=== PATIENT | female | born 1945 | race African-American/Black ===

== ENCOUNTER 2017-01-17 22:24 | Observation (INO) | payer OTHER ==
[~2017-01-17] VITALS: Ht 167.6 cm; Wt 77.6 kg
[~2017-01-17 22:24] MED LIST: ACET-704 PO; ACET1TAB33 PO; ACET325T9 PO; ALPR0.5T PO; ALPR0.5T6; ALPR1TAB6 PO; AMLO10TA2 PO; AMLO5TAB4 PO; ASPI-482 PO; CLON0.1T PO; CLON0.5T3 PO; CYCL10TA2 PO; DILT180C11; DILT180C2 PO; FLAX100017 PO; FLUT100D IH; FLUT50DI; FURO-69; FURO-69 PO; HYDR-2869; HYDR-2869 PO; HYDR100T24 PO; LORA10TA3 PO; LOSA100T6 PO; METO-269 PO; METO100T11 PO; METO100T5; METO10TA81 PO; MULT-18 PO; MULT-658; PANT40GR PO; PANT40VI; POTA10TA12 PO; PROAIR HFA8.5 GM IH; RANI150T2; RANI150T2 PO; SERT25TA PO; SIME80TA14 PO; SIMV20TA3; SIMV20TA3 PO; SUCR1TAB35 PO; TELM1TAB3 PO; TELM80TA; [UNRECOGNIZED DRUG - OTHER]; erythromycin PO
[2017-01-17] MEDS ORDERED: ASPIRIN CHEWABLE 81 MG TABLET. PO ONE (23:00)
[2017-01-17 23:06] LABS: BASO % 0 % (0-3); EOS % 1 % (0-3); HEMATOCRIT 38.6 % (36.0-47.0); HEMOGLOBIN 12.4 g/dL (12.0-15.5); LYMPH % 40 % (24-48); MEAN CORPUSCULAR HEMOGLOBIN 26 pg (25-35); MEAN CORPUSCULAR HGB CONC 32 g/dL (31-37); MEAN CORPUSCULAR VOLUME 80 fL (79-100); MONO % 11 % (0-9); NEUT % 47 % (31-73); PLATELET COUNT 191 x10^3/uL (140-400); RED BLOOD COUNT 4.84 x10^6/uL (3.50-5.40); RED CELL DISTRIBUTION WIDTH 15.2 % (11.5-14.5)
[2017-01-17 23:17] LABS: CALCIUM 9.4 mg/dL (8.5-10.1); CREATININE 0.9 mg/dL (0.6-1.0); GFR 75.1; POTASSIUM 3.4 mmol/L (3.5-5.1)
[2017-01-17 23:24] LABS: ALBUMIN 3.8 g/dL (3.4-5.0); DIRECT BILIRUBIN 0.1 mg/dL (0.0-0.2); TOTAL BILIRUBIN 0.2 mg/dL (0.2-1.0)
--- NOTE | 2017-01-17 23:25 | PHYS DOC ---
Past Medical History Past Medical History: Anxiety, Arthritis, High Cholesterol, Hypertension Additional Past Medical Histor: pericarditis, NARROW ESOPHAGUS, heart murmur Past Surgical History: Cholecystectomy, Hysterectomy, Other Additional Past Surgical Histo: pericardial window shoulder sx 2 knee replacements,pericardial window, [place] Alcohol Use: None Drug Use: None Adult General Chief Complaint Chief Complaint: CHEST PAIN HPI HPI 71-year-old female presenting to the emergency department today with chest pain. The pain is moderate intermittent and is been present for 2 weeks. It radiates into both shoulders bilaterally. She reports taking her blood pressure medications. She denies ever having a heart attack prior. She has a history of high cholesterol hypertension and a history of pericarditis. The patient denies unilateral leg swelling hemoptysis family or personal history of blood clotting disorders. The pt denies recent immobilization. Review of systems is negative for fevers chills cough neck stiffness headache abdominal pain. All other review of systems is negative unless otherwise noted in history of present illness. Pertinent physical exam findings I did not appreciate a murmur though her EMR has a listed and her medical history. Lungs are clear to auscultation bilaterally abdomen is soft and nontender. ED course: 71-year-old female presenting to the emergency department today with chest pain. EKG unremarkable. Chest x-ray unremarkable. Blood work obtained which showed a negative troponin. Given the patient's age and risk factors she was admitted for serial blood tests further evaluation workup and care. Cardiology consult placed. Review of Systems Review of Systems SEE ABOVE. Current Medications Current Medications Current Medications Medications (Trade) Dose Ordered Sig/[facility] Start Time Stop Time Status Last Admin Dose Admin Aspirin (Children'S Aspirin) 324 mg 1X ONCE 01/17/17 23:00 01/17/17 23:01 DC 01/17/17 22:47 324 MG Allergies Allergies Allergies Coded Allergies Type Severity Reaction Last Updated Verified lisinopril Allergy Intermediate 07/13/14 Yes metoclopramide Allergy Intermediate 07/23/15 Yes hydrocodone Allergy Mild shakiness 09/23/13 Yes Physical Exam Physical Exam Constitutional: Well developed, well nourished, no acute distress, non-toxic appearance. HENT: Normocephalic, atraumatic, bilateral external ears normal, oropharynx moist, no oral exudates, nose normal. [] Eyes: PERRLA, EOMI, conjunctiva normal, no discharge. [] Neck: Normal range of motion, no tenderness, supple, no stridor. [] Cardiovascular:Heart rate regular rhythm, no murmur [] Lungs & Thorax: Bilateral breath sounds clear to auscultation Abdomen: Bowel sounds normal, soft, no tenderness, no masses, no pulsatile masses. [] Skin: Warm, dry, no erythema, no rash. [] Back: No tenderness, no CVA tenderness. [] Extremities: No tenderness, no cyanosis, no clubbing, ROM intact, no edema. Neurologic: Alert and oriented X 3, normal motor function, normal sensory function, no focal deficits noted. [] Psychologic: Affect normal, judgement normal, mood normal. [] Current Patient Data Vital Signs Vital Signs Date Time Temp Pulse Resp B/P (MAP) Pulse Ox O2 Delivery O2 Flow Rate FiO2 01/17/17 22:46 98.3 70 18 192/92 (125) 97 Room Air 98.3 Lab Values Laboratory Tests Test 01/17/17 22:59 White Blood Count 5.0 x10^3/uL (4.0-11.0) Red Blood Count 4.84 x10^6/uL (3.50-5.40) Hemoglobin 12.4 g/dL (12.0-15.5) Hematocrit 38.6 % (36.0-47.0) Mean Corpuscular Volume 80 fL (79-100) Mean Corpuscular Hemoglobin 26 pg (25-35) Mean Corpuscular Hemoglobin Concent 32 g/dL (31-37) Red Cell Distribution Width 15.2 % (11.5-14.5) H Platelet Count 191 x10^3/uL (140-400) Neutrophils (%) (Auto) 47 % (31-73) Lymphocytes (%) (Auto) 40 % (24-48) Monocytes (%) (Auto) 11 % (0-9) H Eosinophils (%) (Auto) 1 % (0-3) Basophils (%) (Auto) 0 % (0-3) Neutrophils # (Auto) 2.4 x10^3uL (1.8-7.7) Lymphocytes # (Auto) 2.0 x10^3/uL (1.0-4.8) Monocytes # (Auto) 0.6 x10^3/uL (0.0-1.1) Eosinophils # (Auto) 0.1 x10^3/uL (0.0-0.7) Basophils # (Auto) 0.0 x10^3/uL (0.0-0.2) Sodium Level 142 mmol/L (136-145) Potassium Level 3.4 mmol/L (3.5-5.1) L Chloride Level 105 mmol/L (98-107) Carbon Dioxide Level 30 mmol/L (21-32) Anion Gap 7 (6-14) Blood Urea Nitrogen 14 mg/dL (7-20) Creatinine 0.9 mg/dL (0.6-1.0) Estimated GFR (Cockcroft-Gault) 75.1 Glucose Level 93 mg/dL (70-99) Calcium Level 9.4 mg/dL (8.5-10.1) Total Bilirubin 0.2 mg/dL (0.2-1.0) Direct Bilirubin 0.1 mg/dL (0.0-0.2) Aspartate Amino Transferase (AST) 21 U/L (15-37) Alanine Aminotransferase (ALT) 25 U/L (14-59) Alkaline Phosphatase 89 U/L (46-116) Troponin I Quantitative < 0.017 ng/mL (0.000-0.055) CD-Aue-X-Type Natriuretic Peptide 184 pg/mL (0-124) H Total Protein 8.0 g/dL (6.4-8.2) Albumin 3.8 g/dL (3.4-5.0) Lipase 104 U/L (73-393) Laboratory Tests 01/17/17 22:59 Laboratory Tests 01/17/17 22:59 EKG EKG EKG shows sinus rhythm with regular rate. Normal intervals. Normal axis. ST segments are congruent. Not suggestive of ACS. Reviewed by myself. Radiology/Procedures Radiology/Procedures []Chest x-ray reviewed by myself shows no obvious infiltrate or pneumothorax present. No obvious acute cardiopulmonary process present. Course & Med Decision Making Course & Med Decision Making Pertinent Labs and Imaging studies reviewed. (See chart for details) [] Dragon Disclaimer Dragon Disclaimer This electronic medical record was generated, in whole or in part, using a voice recognition dictation system. Departure Departure Impression: Primary Impression: Chest pain Disposition: ADMITTED INPATIENT Admitting Physician: Dionte Yan Condition: STABLE Referrals: BON NELSON (PCP) MARTÍN TEJEDA MD Jan 17, 2017 23:25
[2017-01-17] MEDS ORDERED: ONDANSETRON PF 4 MG/2 ML VIAL. IV PRN (23:45)
--- NOTE | 2017-01-17 23:52 | ACF ---
Admit Criteria Forms Admit Criteria Forms Admit Criteria Forms HYPERTENSION Clinical Indications for Admission to Inpatient Care ( Place "X" for any and all applicable criteria): Admission is indicated for 1 or more of the following(1)(2)(3)(4)(5)(6)(7)(8)(9) (10): [ ]I. Hypertensive emergency, with evidence of acute and progressing target organ disease as indicated by 1 or more of the following: [ ]a) Hypertensive encephalopathy (eg, confusion, altered mental status) [ ]b) Cerebral infarction [ ]c) Intracranial hemorrhage [ ]d) Myocardial ischemia or infarction [ ]e) Heart failure (eg. Pulmonary edema) [ ]f) Aortic dissection [ ]g) Increased creatinine (new) with reduction of more than 50% in estimated glomerular filtration rate from baseline [ ]h) Seizure [ ]i) Papilledema [ ]j) Retinal hemorrhage [ ]k) Microangiopathic hemolytic anemia [ ]l) Other significant finding secondary to hypertension [ ]II. Adrenergic or sympathomimetic crisis (eg, severe hypertension due to pheochromocytoma crisis, cocaine or amphetamine intoxication, or clonidine withdrawal) [X]III. Severe hypertension (SBP greater than 180 mmHg or DBP greater than 110 mmHg or greater than the 95th percentile for age, gender, and height in pediatric patients) that cannot be controlled (eg, to SBP less than 160 mmHg and DBP less than 100 mmHg in adults) by treatment with oral medication in emergency department or observation care Extended stay beyond goal length of stay may be needed for(11)(12)(13): [ ]a) Persistent hypertensive encephalopathy [ ]b) Continuation of pulmonary edema [ ]c) Recurring or persistent severe hypertension [ ]d) Target organ damage (eg, angina, stroke, aortic dissection) The original [employer] content created by [employer] has been revised. The portions of the content which have been revised are identified through the use of italic text, and [employer] has neither reviewed nor approved the modified material. All other unmodified content is copyright [employer]. Please see references footnoted in the original [employer] edition 2014 ASHLEY BROCK Jan 17, 2017 23:52
[2017-01-18] MEDS ORDERED: GABA-585 PO (00:23)
[2017-01-18] MEDS ORDERED: SUCR1TAB35 PO (00:23)
[2017-01-18 00:43] VITALS: BP 150/78
[2017-01-18] MEDS ORDERED: NON FORMULARY ITEM (Albuterol Sulfate (Proair Hfa Inhaler) 2 PUFF) IH SCH (01:15)
[2017-01-18] MEDS: ACETAMINOPHEN/CODEINE 300/30MG TABLET. PO PRN ×2 (01:29→08:52)
[2017-01-18] MEDS: ALPRAZolam 1 MG TABLET PO PRN ×2 (01:29→11:50)
[2017-01-18] MEDS ORDERED: ALBUTEROL SULFATE 2.5 MG/3 ML NEBU. NEB PRN (01:30)
[2017-01-18 03:21] VITALS: BP 127/73
[2017-01-18 07:00] VITALS: BP 143/87
[2017-01-18] MEDS ORDERED: SUCRALFATE 1 GM TABLET. PO SCH (07:30)
--- NOTE | 2017-01-18 08:16 | RAD ---
EXAM: Chest one view. HISTORY: Chest pain. COMPARISON: 07/17/2016. FINDINGS: A frontal view of the chest is obtained. There are no confluent infiltrates. There is no pneumothorax or pleural effusion. The heart is mildly enlarged given this projection. Cholecystectomy clips are noted. IMPRESSION: 1. Mild cardiomegaly.
[2017-01-18] MEDS ORDERED: GABAPENTIN 100 MG CAPSULE. PO SCH (09:00)
[2017-01-18] MEDS ORDERED: amLODIPine BESYLATE 10 MG TABLET PO SCH (09:00)
[2017-01-18] MEDS ORDERED: POTASSIUM CHLORIDE 10 MEQ TABLET.ER. PO SCH (09:00)
[2017-01-18] MEDS ORDERED: ASPIRIN ENTERIC COATED 81 MG TABLET.DR. PO SCH (09:00)
[2017-01-18] MEDS ORDERED: cloNIDine HCL 0.1 MG TABLET PO SCH (09:00)
[2017-01-18] MEDS ORDERED: LOSARTAN POTASSIUM 50 MG TABLET. PO SCH (09:00)
[2017-01-18] MEDS ORDERED: MULTIVITAMIN with MINERAL TABLET. PO SCH (09:00)
[2017-01-18] MEDS ORDERED: METOPROLOL SUCC 24HR ER 100 MG TAB.ER.24H. PO SCH (09:00)
[2017-01-18 11:00] VITALS: BP 114/61
--- NOTE | 2017-01-18 11:42 | PDOC2 ---
CONSULT Date of Consult Date of Consult DATE: 01/18/17 TIME: 11:42 Reason for Consult Reason for Consult: Chest pain Referring Physician Referring Physician: Dr. Yan Identification/Chief Complaint Chief Complaint Chest pain Source Source: Chart review, Patient History of Present Illness Reason for Visit: 71-year-old pleasant female presented with retrosternal chest pain 7/10 severity not related to exertion or food intake. She denied any orthopnea/PND, palpitations or syncope. Past Medical History Cardiovascular: HTN, Hyperlipidemia, Other (pericardial effusion s/p window placement) Pulmonary: No pertinent hx GI: Other Heme/Onc: No pertinent hx Hepatobiliary: No pertinent hx Psych: No pertinent hx Musculoskeletal: Osteoarthritis Rheumatologic: No pertinent hx Infectious disease: No pertinent hx Renal/: No pertinent hx Endocrine: No pertinent hx Past Surgical History Past Surgical History: Cholecystectomy, Total knee replacement, Hysterectomy, Other Family History Family History: Family History Unknown Social History ALCOHOL: none Drugs: None Lives: with Family Current Problem List Problem List Problems Medical Problems: (1) Chest pain Status: Acute Current Medications Current Medications Current Medications Aspirin (Children'S Aspirin) 324 mg 1X ONCE PO Last administered on 01/17/17 22:47; Start 01/17/17 at 23:00; Stop 01/17/17 at 23:01; Status DC Ondansetron HCl (Zofran) 4 mg PRN Q8HRS PRN IV NAUSEA/VOMITING; Start 01/17/17 at 23:45; Stop 01/18/17 at 23:44 Amlodipine Besylate (Norvasc) 10 mg DAILY PO Last administered on 01/18/17 08: 38; Start 01/18/17 at 09:00 Aspirin (Ecotrin) 81 mg DAILY PO Last administered on 01/18/17 08:37; Start at 09:00 Clonidine HCl (Catapres) 0.1 mg BID PO Last administered on 01/18/17 08:38; Start 01/18/17 at 09:00 Cyclobenzaprine HCl (Flexeril) 10 mg HS PO ; Start 01/18/17 at 21:00 Gabapentin (Neurontin) 200 mg BID PO Last administered on 01/18/17 08:37; Start 01/18/17 at 09:00 Metoprolol Succinate (Toprol Xl) 100 mg DAILY PO Last administered on 08:37; Start 01/18/17 at 09:00 Potassium Chloride (Klor-Con) 10 meq DAILY PO Last administered on 01/18/17 08 :39; Start 01/18/17 at 09:00 Atorvastatin Calcium (Lipitor) 10 mg QHS PO ; Start 01/18/17 at 21:00 Sucralfate (Carafate) 1 gm BIDAC PO Last administered on 01/18/17 08:38; Start 01/18/17 at 07:30 Non-Formulary Medication 2 puff PRN Q4-6HRS IH ; Start 01/18/17 at 01:15; Status UNV Hydralazine HCl (Apresoline) 100 mg TID PO Last administered on 01/18/17 08:39 ; Start 01/18/17 at 09:00 Losartan Potassium (Cozaar) 100 mg DAILY PO Last administered on 01/18/17 08: 38; Start 01/18/17 at 09:00 Multivitamins (Thera M Plus) 1 tab DAILY PO Last administered on 01/18/17 08: 40; Start 01/18/17 at 09:00 Alprazolam (Xanax) 1 mg PRN BID PRN PO ANXIETY / AGITATION Last administered on 01/18/17 01:29; Start 01/18/17 at 01:15 Acetaminophen/ Codeine Phosphate (Tylenol #3) 1 tab PRN Q6HRS PRN PO MODERATE PAIN Last administered on 01/18/17 08:52; Start 01/18/17 at 01:15 Albuterol Sulfate (Ventolin Neb Soln) 2.5 mg PRN Q4HRS PRN NEB SHORTNESS OF BREATH; Start 01/18/17 at 01:30 Active Scripts Active Reported Gabapentin 100 Mg Capsule 200 Mg PO BID Carafate (Sucralfate) 1 Gm Tablet 1 Tab PO BID Cyclobenzaprine Hcl 10 Mg Tablet 1 Tab PO HS Proair Hfa Inhaler (Albuterol Sulfate) 8.5 Gm Hfa.aer.ad 2 Puff IH PRN Q4-6HRS Simvastatin 20 Mg Tablet 20 Mg PO HS Metoprolol Succinate ( Xl ) (Metoprolol Succinate) 100 Mg Tab.er.24h 100 Mg PO DAILY Amlodipine Besylate 10 Mg Tablet 10 Mg PO DAILY Potassium Chloride 10 Meq Tablet.er 10 Meq PO DAILY Clonidine Hcl 0.1 Mg Tablet 0.1 Mg PO BID Alprazolam 1 Mg Tablet 1 Mg PO BID Hydralazine Hcl 100 Mg Tablet 100 Mg PO TID Aspir 81 (Aspirin) 81 Mg Tablet.dr 81 Mg PO DAILY Losartan Potassium 100 Mg Tablet 100 Mg PO DAILY Flovent 100MCG Diskus (Fluticasone Propionate) 100 Mcg Disk.w.dev 100 Mcg IH Daily Vitamin (Multivitamin) 1 Each Tablet 1 Each PO DAILY Allergies Allergies: Coded Allergies: lisinopril (Verified Allergy, Intermediate, 07/13/14) metoclopramide (Verified Allergy, Intermediate, 07/23/15) Pt states Reglan makes her "pass out" hydrocodone (Verified Allergy, Mild, shakiness, 09/23/13) ROS PSYCHOLOGICAL ROS: No: Hallucinations Eyes: No Loss of vision HEENT: No: Epistaxis Respiratory: No: Shortness of breath Cardiovascular: yes Chest Pain, No Palpitations Genitourinary: No Hematuria Neurological: No Seizures Skin: No Rash Physical Exam General: Alert, Oriented X3 HEENT: Atraumatic, PERRLA Lungs: Clear to auscultation Heart: Regular rate, No murmurs Extremities: No edema Skin: No rashes Psych/Mental Status: Mood NL Vitals VITALS Vital Signs Date Time Temp Pulse Resp B/P (MAP) Pulse Ox O2 Delivery O2 Flow Rate FiO2 01/18/17 09:52 16 95 Room Air 01/18/17 08:39 60 127/73 01/18/17 07:00 98.0 98.0 Labs Labs Laboratory Tests Test 01/17/17 22:59 01/18/17 05:26 White Blood Count 5.0 x10^3/uL (4.0-11.0) Red Blood Count 4.84 x10^6/uL (3.50-5.40) Hemoglobin 12.4 g/dL (12.0-15.5) Hematocrit 38.6 % (36.0-47.0) Mean Corpuscular Volume 80 fL (79-100) Mean Corpuscular Hemoglobin 26 pg (25-35) Mean Corpuscular Hemoglobin Concent 32 g/dL (31-37) Red Cell Distribution Width 15.2 % (11.5-14.5) Platelet Count 191 x10^3/uL (140-400) Neutrophils (%) (Auto) 47 % (31-73) Lymphocytes (%) (Auto) 40 % (24-48) Monocytes (%) (Auto) 11 % (0-9) Eosinophils (%) (Auto) 1 % (0-3) Basophils (%) (Auto) 0 % (0-3) Neutrophils # (Auto) 2.4 x10^3uL (1.8-7.7) Lymphocytes # (Auto) 2.0 x10^3/uL (1.0-4.8) Monocytes # (Auto) 0.6 x10^3/uL (0.0-1.1) Eosinophils # (Auto) 0.1 x10^3/uL (0.0-0.7) Basophils # (Auto) 0.0 x10^3/uL (0.0-0.2) Sodium Level 142 mmol/L (136-145) Potassium Level 3.4 mmol/L (3.5-5.1) Chloride Level 105 mmol/L (98-107) Carbon Dioxide Level 30 mmol/L (21-32) Anion Gap 7 (6-14) Blood Urea Nitrogen 14 mg/dL (7-20) Creatinine 0.9 mg/dL (0.6-1.0) Estimated GFR (Cockcroft-Gault) 75.1 Glucose Level 93 mg/dL (70-99) Calcium Level 9.4 mg/dL (8.5-10.1) Total Bilirubin 0.2 mg/dL (0.2-1.0) Direct Bilirubin 0.1 mg/dL (0.0-0.2) Aspartate Amino Transf (AST/SGOT) 21 U/L (15-37) Alanine Aminotransferase (ALT/SGPT) 25 U/L (14-59) Alkaline Phosphatase 89 U/L (46-116) Troponin I Quantitative < 0.017 ng/mL (0.000-0.055) < 0.017 ng/mL (0.000-0.055) XD-Avh-Z-Type Natriuretic Peptide 184 pg/mL (0-124) Total Protein 8.0 g/dL (6.4-8.2) Albumin 3.8 g/dL (3.4-5.0) Lipase 104 U/L (73-393) Laboratory Tests Test 01/17/17:59 01/18/17 05:26 White Blood Count 5.0 x10^3/uL (4.0-11.0) Red Blood Count 4.84 x10^6/uL (3.50-5.40) Hemoglobin 12.4 g/dL (12.0-15.5) Hematocrit 38.6 % (36.0-47.0) Mean Corpuscular Volume 80 fL (79-100) Mean Corpuscular Hemoglobin 26 pg (25-35) Mean Corpuscular Hemoglobin Concent 32 g/dL (31-37) Red Cell Distribution Width 15.2 % (11.5-14.5) Platelet Count 191 x10^3/uL (140-400) Neutrophils (%) (Auto) 47 % (31-73) Lymphocytes (%) (Auto) 40 % (24-48) Monocytes (%) (Auto) 11 % (0-9) Eosinophils (%) (Auto) 1 % (0-3) Basophils (%) (Auto) 0 % (0-3) Neutrophils # (Auto) 2.4 x10^3uL (1.8-7.7) Lymphocytes # (Auto) 2.0 x10^3/uL (1.0-4.8) Monocytes # (Auto) 0.6 x10^3/uL (0.0-1.1) Eosinophils # (Auto) 0.1 x10^3/uL (0.0-0.7) Basophils # (Auto) 0.0 x10^3/uL (0.0-0.2) Sodium Level 142 mmol/L (136-145) Potassium Level 3.4 mmol/L (3.5-5.1) Chloride Level 105 mmol/L (98-107) Carbon Dioxide Level 30 mmol/L (21-32) Anion Gap 7 (6-14) Blood Urea Nitrogen 14 mg/dL (7-20) Creatinine 0.9 mg/dL (0.6-1.0) Estimated GFR (Cockcroft-Gault) 75.1 Glucose Level 93 mg/dL (70-99) Calcium Level 9.4 mg/dL (8.5-10.1) Total Bilirubin 0.2 mg/dL (0.2-1.0) Direct Bilirubin 0.1 mg/dL (0.0-0.2) Aspartate Amino Transf (AST/SGOT) 21 U/L (15-37) Alanine Aminotransferase (ALT/SGPT) 25 U/L (14-59) Alkaline Phosphatase 89 U/L (46-116) Troponin I Quantitative < 0.017 ng/mL (0.000-0.055) < 0.017 ng/mL (0.000-0.055) QC-Bfr-V-Type Natriuretic Peptide 184 pg/mL (0-124) Total Protein 8.0 g/dL (6.4-8.2) Albumin 3.8 g/dL (3.4-5.0) Lipase 104 U/L (73-393) Assessment/Plan Assessment/Plan 1. Chest pain with atypical features: Myocardial infarction was ruled out. Cardiac catheterization in 2013 did not show any significant coronary artery disease. 2-D echo in May 2016 showed normal LV systolic function with mild- to-moderate aortic insufficiency. Plan for Lexiscan nuclear stress test as an outpatient. 2. Hypertension: Well-controlled 3. Hyperlipidemia: Continue statin therapy Thank you for your consultation HARRIET DE LUNA MD Jan 18, 2017 11:42
--- NOTE | 2017-01-18 11:53 | PDOC ---
Provider Note Provider Note Pt seen. combined H&P and discharge summary dictated. #[id number] SEEMA VEGA MD Jan 18, 2017 11:53
--- NOTE | 2017-01-18 12:23 | EKG ---
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
--- NOTE | 2017-01-18 12:37 | HP ---
ADMIT DATE: 01/18/2017 This is a combined history and physical and discharge summary. LOCATION: [facility]. REASON FOR ADMISSION TO THE HOSPITAL: Chest pain, skeletomuscular. The patient has a history of CAD. ATTENDING PHYSICIAN: Dr. Vega. PRIMARY PHYSICIAN: Dr. Sean Castanon. HISTORY OF PRESENT ILLNESS: The patient is a 71-year-old female, patient of Dr. Castanon. She has a history of hypertension, has a history of known coronary artery disease and she had her last cardiac cath 3 years ago and a stress test last year, negative for ischemia. The patient is having some skeletomuscular pain from the neck going to the chest and came to the Emergency Room. EKG, cardiac enzymes negative, was admitted for observation. PAST MEDICAL HISTORY: History of hypertension, hyperlipidemia, anxiety, has a history of pericarditis in the past. PAST SURGICAL HISTORY: Gallbladder surgery, knee replacement, hysterectomy, had a pericardial window. ALLERGIES: HYDROCODONE, LISINOPRIL AND REGLAN. MEDICATIONS AT HOME: She is on Xanax 1 mg twice a day, amlodipine 10 mg daily, aspirin 325 daily, atorvastatin 10 mg daily, clonidine 0.1 twice a day, Flexeril 10 mg at bedtime, Neurontin 200 mg twice a day, hydralazine 100 mg three times daily, losartan 100 mg daily, metoprolol 100 mg daily, Zofran for nausea, potassium 10 mEq daily and Carafate 1 gram twice a day. PERSONAL HISTORY: No history of smoking, alcohol, drug abuse. FAMILY HISTORY: Positive for hypertension, heart disease. REVIEW OF SYMPTOMS: CARDIAC: Complains of pain coming from the neck, both shoulders and to the center of the upper chest. GASTROINTESTINAL: No nausea, no vomiting. Rest of the 14-system was reviewed and negative. PHYSICAL EXAMINATION: GENERAL: The patient is anxious and nervous. VITAL SIGNS: Temperature 98, pulse 70, respirations 18, blood pressure 192/92 came down to 131/77, 97 on room air. HEENT: Head is atraumatic. Pupils equal. Oral cavity: No congestion. NECK: Supple. Thyroid not enlarged. JVD not elevated. CHEST: Symmetrical. CARDIOVASCULAR: S1, S2. LUNGS: Clear. ABDOMEN: Soft, bowel sounds present, no mass palpable. EXTERNAL GENITALIA: No [place]. RECTAL: Deferred. EXTREMITIES: No calf tenderness, no edema. NEUROLOGIC: Moving all extremities. The patient has muscle tenderness, mostly in the cervical, going to both shoulders area. LABORATORY DATA: Shows a white count of 5, hemoglobin 12, platelets 191. Electrolytes show sodium 142, potassium 3.4, chloride 105, bicarb 30, BUN ____, creatinine 0.9. LFTs normal. Troponin negative. Chest x-ray: Mild cardiomegaly. EKG done, report is pending. FINAL IMPRESSION: 1. Skeletomuscular pain. 2. Anxiety, panic attacks. 3. Known history of pericardial disease, had a pericardial window. 4. Had a previous cardiac workup including cardiac catheterization as well as a stress test last year was negative. 5. Hypertension. 6. Hyperlipidemia. PLAN: At this time, was admitted to the hospital, seen by Cardiology and cardiac enzymes and EKG negative, could be discharged home, increase Xanax from b.i.d. to t.i.d. Follow up with PCP. SEEMA VEGA MD DR: DAKOTA/jamison JOB#: [id number] / [id number] SEAN Storey
[2017-01-18] MEDS ORDERED: ATORVASTATIN CALCIUM 10 MG TABLET. PO SCH (21:00)
[2017-01-18] MEDS ORDERED: CYCLOBENZAPRINE 10 MG TABLET. PO SCH (21:00)
== END 2017-01-18 13:25 | disposition home or self-care (01) ==
LOC: ER 22:24 → 6 SOUTH 23:00
PROVIDERS: ADMIT Internal Medicine; ATTEND Internal Medicine
DX: R07.9 Chest pain, unspecified (principal); M79.1 Myalgia; F41.9 Anxiety disorder, unspecified; I10 Essential (primary) hypertension; I25.10 Atherosclerotic heart disease of native coronary artery without angina pectoris; M19.90 Unspecified osteoarthritis, unspecified site; E78.00 Pure hypercholesterolemia, unspecified
CPT/HCPCS: 36415; 71010; 80048; 80076; 83690; 83880; 84484; 85027; 93005; 94250; 94760; 99285; G0378; G0379

== ENCOUNTER 2017-02-15 18:56 | Observation (INO) | payer OTHER ==
[~2017-02-15] VITALS: Ht 167.6 cm; Wt 78.0 kg
[~2017-02-15 18:56] MED LIST changes: +GABA-585 PO
[2017-02-15] MEDS ORDERED: KETOROLAC 15 MG/ML VIAL. IV ONE (19:30)
[2017-02-15] MEDS ORDERED: IV NORMAL SALINE 500ML BAG 500 ML IV ONE (19:30)
[2017-02-15] MEDS ORDERED: hydrALAZINE 20 MG/ML VIAL. IVP ONE (19:30)
[2017-02-15 19:38] LABS: BASO % 1 % (0-3); EOS % 2 % (0-3); HEMATOCRIT 37.9 % (36.0-47.0); HEMOGLOBIN 12.4 g/dL (12.0-15.5); LYMPH # 1.5 x10^3/uL (1.0-4.8); LYMPH % 40 % (24-48); MEAN CORPUSCULAR HEMOGLOBIN 26 pg (25-35); MEAN CORPUSCULAR HGB CONC 33 g/dL (31-37); MEAN CORPUSCULAR VOLUME 79 fL (79-100); MONO % 10 % (0-9); NEUT % 48 % (31-73); PLATELET COUNT 190 x10^3/uL (140-400); RED BLOOD COUNT 4.82 x10^6/uL (3.50-5.40); WHITE BLOOD COUNT 3.8 x10^3/uL (4.0-11.0)
--- NOTE | 2017-02-15 19:40 | PHYS DOC ---
Past Medical History Past Medical History: Anxiety, Arthritis, High Cholesterol, Hypertension Additional Past Medical Histor: pericarditis, NARROW ESOPHAGUS, heart murmur Past Surgical History: Cholecystectomy, Hysterectomy, Other Additional Past Surgical Histo: pericardial window shoulder sx 2 knee replacements,pericardial window, [place] Alcohol Use: None Drug Use: None Adult General Chief Complaint Chief Complaint: HYPERTENSION HPI HPI Patient is a 71 year old female who complains of a headache and head fullness today along with blood pressure elevated. Patient takes multiple medications for hypertension, she has not run out of any and has been taking them as prescribed. She states her blood pressure usually runs in the 120 to 1:30 systolic range. She just saw her nut packer this week for a checkup. Today she got up and didn't feel well. She had a pressure sensation in both the ears that went up into her temples and forehead bilaterally and also down into her neck bilaterally. She checked her blood pressure and it has been running in the 160-190 systolic range. She did speak with Dr. Diez who advised her to take an extra dose of losartan which she did. Her blood pressure has continued to run high and she isn't feeling better so she came into the ED. Patient believes she has been drinking plenty of fluids. It has been hot outside but she has been mostly staying in the air conditioning. She's had no shortness of air or chest pain. Her antihypertensive regimen is as follows: Hydralazine 100 mg 3 times a day Amlodipine 5 mg daily in the morning Metoprolol ER 100 mg daily in the middle of the day Clonidine 0.1 mg twice a day Losartan 100 mg daily in the morning The patient has taken all of these medications as prescribed, she did take her mid-day dose of hydralazine and metoprolol as well as an additional dose of losartan as recommended as above. PCP Dr. Nelson Post Tensioning Ironworker Dr. Diez Review of Systems Review of Systems Constitutional: She felt chilly this afternoon but has had no documented fever Eyes: Denies change in visual acuity, redness, or eye pain [] HENT: She has had ear congestion, nasal congestion, and a pressure feeling in her head. She used some nasal spray for that earlier today Respiratory: Denies cough or shortness of breath [] Cardiovascular: Denies chest pain GI: Denies abdominal pain, nausea, vomiting, bloody stools or diarrhea [] : Denies dysuria or hematuria [] Musculoskeletal: Denies back pain or joint pain [] Integument: Denies rash or skin lesions [] Neurologic: Headache as in history of present illness Endocrine: She thinks she has been urinating frequently, she does not take a diuretic Current Medications Current Medications Current Medications Medications (Trade) Dose Ordered Sig/Richard Start Time Stop Time Status Last Admin Dose Admin Hydralazine HCl (Apresoline) 10 mg 1X ONCE 02/15/17 19:30 02/15/17 19:31 DC 02/15/17 19:36 10 MG Hydromorphone HCl (Dilaudid) 0.5 mg 1X ONCE 02/15/17 20:15 02/15/17 20:16 DC 02/15/17 20:12 0.5 MG Ketorolac Tromethamine (Toradol) 15 mg 1X ONCE 02/15/17 19:30 02/15/17 19:31 DC 02/15/17 19:35 15 MG Sodium Chloride 500 ml @ 500 mls/hr 1X ONCE 02/15/17 19:30 02/15/17 20:29 DC 02/15/17 19:36 500 MLS/HR Allergies Allergies Allergies Coded Allergies Type Severity Reaction Last Updated Verified lisinopril Allergy Intermediate 07/13/14 Yes metoclopramide Allergy Intermediate 07/23/15 Yes hydrocodone Allergy Mild shakiness 09/23/13 Yes Physical Exam Physical Exam Constitutional: Well developed, well nourished, no acute distress, non-toxic appearance. Alert, mentating normally. Blood pressure 189/100, heart rate 63 HENT: Normocephalic, atraumatic, bilateral external ears normal, bilateral TMs normal, oropharynx moist, no oral exudates, nose normal. [] Eyes: conjunctiva normal, no discharge. [] Neck: Normal range of motion, no stridor. [] Cardiovascular:Heart rate regular rhythm, no murmur [] Lungs & Thorax: Bilateral breath sounds clear to auscultation [] Abdomen: Bowel sounds normal, soft, no tenderness, no masses, no pulsatile masses. [] Skin: Warm, dry, no erythema, no rash. [] Extremities: No tenderness, no cyanosis, no clubbing, ROM intact, no edema. [] Neurologic: Alert and oriented X 3, normal motor function, normal sensory function, no focal deficits noted. [] Current Patient Data Vital Signs Vital Signs Date Time Temp Pulse Resp B/P (MAP) Pulse Ox O2 Delivery O2 Flow Rate FiO2 02/15/17 21:30 62 18 157/79 (105) 98 Room Air 02/15/17 19:07 98.2 98.2 Lab Values Laboratory Tests Test 02/15/17 19:10 White Blood Count 3.8 x10^3/uL (4.0-11.0) L Red Blood Count 4.82 x10^6/uL (3.50-5.40) Hemoglobin 12.4 g/dL (12.0-15.5) Hematocrit 37.9 % (36.0-47.0) Mean Corpuscular Volume 79 fL (79-100) Mean Corpuscular Hemoglobin 26 pg (25-35) Mean Corpuscular Hemoglobin Concent 33 g/dL (31-37) Red Cell Distribution Width 15.0 % (11.5-14.5) H Platelet Count 190 x10^3/uL (140-400) Neutrophils (%) (Auto) 48 % (31-73) Lymphocytes (%) (Auto) 40 % (24-48) Monocytes (%) (Auto) 10 % (0-9) H Eosinophils (%) (Auto) 2 % (0-3) Basophils (%) (Auto) 1 % (0-3) Neutrophils # (Auto) 1.8 x10^3uL (1.8-7.7) Lymphocytes # (Auto) 1.5 x10^3/uL (1.0-4.8) Monocytes # (Auto) 0.4 x10^3/uL (0.0-1.1) Eosinophils # (Auto) 0.1 x10^3/uL (0.0-0.7) Basophils # (Auto) 0.0 x10^3/uL (0.0-0.2) Sodium Level 143 mmol/L (136-145) Potassium Level 3.5 mmol/L (3.5-5.1) Chloride Level 106 mmol/L (98-107) Carbon Dioxide Level 29 mmol/L (21-32) Anion Gap 8 (6-14) Blood Urea Nitrogen 12 mg/dL (7-20) Creatinine 0.7 mg/dL (0.6-1.0) Estimated GFR (Cockcroft-Gault) 100.4 BUN/Creatinine Ratio 17 (6-20) Glucose Level 108 mg/dL (70-99) H Calcium Level 9.7 mg/dL (8.5-10.1) Total Bilirubin 0.3 mg/dL (0.2-1.0) Aspartate Amino Transferase (AST) 20 U/L (15-37) Alanine Aminotransferase (ALT) 21 U/L (14-59) Alkaline Phosphatase 82 U/L (46-116) Total Protein 8.0 g/dL (6.4-8.2) Albumin 4.0 g/dL (3.4-5.0) Albumin/Globulin Ratio 1.0 (1.0-1.7) Laboratory Tests 02/15/17 19:10 Laboratory Tests 02/15/17 19:10 EKG EKG 12-lead EKG read by me. Sinus rhythm. Heart rate 64. There are no acute ST or T wave changes indicative of ischemia or infarction. No STEMI. 191 [] Radiology/Procedures Radiology/Procedures [] Course & Med Decision Making Course & Med Decision Making Pertinent Labs and Imaging studies reviewed. (See chart for details) 71-year-old female who is on multiple antihypertensives presents with some nonspecific complaints and elevated blood pressure today. I'm not sure whether her elevated blood pressure is causing her symptoms and discussed this with the patient. We will check some labs, give her some IV fluids and some IV hydralazine to get her blood pressure down. She is agreeable to that plan. Labs unremarkable for acute findings. Patient had a liter of IV fluids and was treated for her headache. She stated her headache was no better. She also complained of being anxious. She was given IV Dilaudid for her symptoms. She stated that did not help and if anything made her feel worse. Patient was up to the restroom with minimal help from ED staff members. She appears to be generalized weak and shaky. She does not appear to be focally weak. She states that she is much more weak than usual and having a lot more trouble walking. I don't have a focus for the patient's complaints and I don't believe her complaints are consistent with a neurologic event such as CVA. She is nonfocal and it is more of a generalized complaint. I discussed with the patient that I feel she could go home and try to get a good night sleep but the patient is not comfortable with that. She feels too anxious to go home. I offered her observation admission and she prefers that. I spoke with Dr. Claudio who will admit the patient for Dr. Yan. He is familiar with the patient. I wrote bridge orders. [] Dragon Disclaimer Dragon Disclaimer This electronic medical record was generated, in whole or in part, using a voice recognition dictation system. Departure Departure Impression: Primary Impression: Anxiety Additional Impression: Hypertension Disposition: 09 ADMITTED INPATIENT Admitting Physician: Dionte Yan Condition: STABLE Referrals: BON NELSON (PCP) Problem Qualifiers MARIYA WALLIS MD Feb 15, 2017 19:40
[2017-02-15 19:50] LABS: CALCIUM 9.7 mg/dL (8.5-10.1); CREATININE 0.7 mg/dL (0.6-1.0); GFR 100.4; POTASSIUM 3.5 mmol/L (3.5-5.1)
[2017-02-15 19:55] LABS: TOTAL BILIRUBIN 0.3 mg/dL (0.2-1.0)
[2017-02-15] MEDS ORDERED: HYDROmorphone 2 MG/ML VIAL IV ONE (20:15)
[2017-02-15 23:00] VITALS: BP 146/98
[2017-02-15] MEDS ORDERED: ALPRAZolam 0.5 MG TABLET PO ONE (23:00)
[2017-02-15] MEDS ORDERED: cloNIDine HCL 0.1 MG TABLET PO ONE (23:30)
[2017-02-16] MEDS ORDERED: NON FORMULARY ITEM (Albuterol Sulfate (Proair Hfa Inhaler) 2 PUFF) IH SCH (00:15)
[2017-02-16] MEDS ORDERED: ACETAMINOPHEN 325 MG TABLET. PO PRN (00:15)
[2017-02-16] MEDS ORDERED: ACETAMINOPHEN/CODEINE 300/30MG TABLET. PO PRN (00:15)
[2017-02-16] MEDS ORDERED: hydrALAZINE 20 MG/ML VIAL. IVP PRN (00:15)
[2017-02-16] MEDS ORDERED: ACET-704 PO (00:27)
[2017-02-16] MEDS ORDERED: LORA10TA3 PO (00:27)
[2017-02-16] MEDS: MAG HYDROX/ALUMINUM HYD/SIMETH 30 ML ORAL.SUSP PO PRN ×2 (00:32→08:47)
[2017-02-16] MEDS ORDERED: ALBUTEROL SULFATE 2.5 MG/3 ML NEBU. NEB PRN (00:45)
[2017-02-16 03:21] VITALS: BP 123/72
[2017-02-16 07:00] VITALS: BP 146/84
[2017-02-16] MEDS ORDERED: SUCRALFATE 1 GM TABLET. PO SCH (07:30)
[2017-02-16] MEDS ORDERED: amLODIPine BESYLATE 10 MG TABLET PO SCH (09:00)
[2017-02-16] MEDS ORDERED: LOSARTAN POTASSIUM 50 MG TABLET. PO SCH (09:00)
[2017-02-16] MEDS ORDERED: METOPROLOL SUCC 24HR ER 100 MG TAB.ER.24H. PO SCH (09:00)
[2017-02-16] MEDS ORDERED: ALPRAZolam 1 MG TABLET PO SCH (09:00)
[2017-02-16] MEDS ORDERED: GABAPENTIN 100 MG CAPSULE. PO SCH (09:00)
[2017-02-16] MEDS ORDERED: CETIRIZINE HCL 10 MG TABLET. PO SCH (09:00)
[2017-02-16] MEDS ORDERED: POTASSIUM CHLORIDE 10 MEQ TABLET.ER. PO SCH (09:00)
[2017-02-16] MEDS ORDERED: ASPIRIN ENTERIC COATED 81 MG TABLET.DR. PO SCH (09:00)
[2017-02-16] MEDS ORDERED: cloNIDine HCL 0.1 MG TABLET PO SCH (09:00)
[2017-02-16] MEDS ORDERED: MULTIVITAMIN with MINERAL TABLET. PO SCH (09:00)
--- NOTE | 2017-02-16 10:14 | PDOC1 ---
HISTORY AND PHYSICAL Chief Complaint Chief Complaint Patient is a 71 year old female who complains of a headache and head fullness today along with blood pressure elevated. Patient takes multiple medications for hypertension, she has not run out of any and has been taking them as prescribed. She states her blood pressure usually runs in the 120 to 1:30 systolic range. She just saw her board operator this week for a checkup. Today she got up and didn't feel well. She had a pressure sensation in both the ears that went up into her temples and forehead bilaterally and also down into her neck bilaterally. She checked her blood pressure and it has been running in the 160-190 systolic range. She did speak with Dr. Diez who advised her to take an extra dose of losartan which she did. Her blood pressure has continued to run high and she isn't feeling better so she came into the ED. pt was admitted for observation to control BP. Problems: Past Medical History Cardiovascular: HTN, Hyperlipidemia, Other Pulmonary: No pertinent hx GI: Other Heme/Onc: No pertinent hx Hepatobiliary: No pertinent hx Psych: No pertinent hx Musculoskeletal: Osteoarthritis Rheumatologic: No pertinent hx Infectious disease: No pertinent hx Renal/: No pertinent hx Endocrine: No pertinent hx Past Surgical History Past Surgical History: Cholecystectomy, Total knee replacement, Hysterectomy, Other Past Family History Family History: Family History Unknown Past Social History PSH no smoking or alcohol or drugs Review of Symptoms Review of Symptoms General ROS: positive for anxiety and muscle aches on shoulders Psychological ROS: negative Ophthalmic ROS: negative ENT ROS: negative Allergy and Immunology ROS: negative Hematology and Lymphatic: negative Endocrine ROS: negative Respiratory ROS: no cold, cough, dyspnea. Cardiovascular ROS: no chest pain or dyspnea on exertion Gastrointestinal ROS: no abdominal pain, change in bowel habits, or black or bloody stools Genito-Urinary ROS: no dysuria, trouble voiding, or hematuria Musculoskeletal ROS: no pain Neurological ROS: negative Dermatological ROS: no rash Medications Current Medications Acetaminophen (Tylenol) 650 mg PRN Q6HRS PRN PO MILD PAIN / TEMP; Start at 00:15 Acetaminophen/ Codeine Phosphate (Tylenol #3) 0.5 tab PRN BID PRN PO PAIN; Start 02/16/17 at 00:15 Al Hydroxide/Mg Hydroxide (Mylanta Plus Xs) 30 ml PRN Q2HR PRN PO HEARTBURN / GAS Last administered on 7/17/17at 08:47; Start 02/16/17 at 00:15 Albuterol Sulfate (Ventolin Neb Soln) 2.5 mg PRN Q4HRS PRN NEB SHORTNESS OF BREATH; Start 02/16/17 at 00:45 Alprazolam (Xanax) 1 mg 1X ONCE PO Last administered on 02/15/17 23:26; Start 02/15/17 at 23:00; Stop 02/15/17 at 23:01; Status DC Alprazolam (Xanax) 1 mg BID PO Last administered on 02/16/17 09:52; Start at 09:00 Amlodipine Besylate (Norvasc) 5 mg DAILY PO Last administered on 02/16/17 09: 52; Start 02/16/17 at 09:00 Aspirin (Ecotrin) 81 mg DAILY PO ; Start 02/16/17 at 09:00 Cetirizine HCl (ZyrTEC) 10 mg DAILY PO Last administered on 02/16/17 09:51; Start 02/16/17 at 09:00 Clonidine HCl (Catapres) 0.1 mg 1X ONCE PO Last administered on 02/15/17 23: 26; Start 02/15/17 at 23:30; Stop 02/15/17 at 23:31; Status DC Clonidine HCl (Catapres) 0.1 mg BID PO Last administered on 02/16/17 09:51; Start 02/16/17 at 09:00 Gabapentin (Neurontin) 200 mg BID PO Last administered on 02/16/17 09:49; Start 02/16/17 at 09:00 Hydralazine HCl (Apresoline) 10 mg 1X ONCE IVP Last administered on 02/15/17 19:36; Start 02/15/17 at 19:30; Stop 02/15/17 at 19:31; Status DC Hydralazine HCl (Apresoline) 10 mg PRN Q4HRS PRN IVP ELEVATED BP, SEE COMMENTS ; Start 02/16/17 at 00:15 Hydralazine HCl (Apresoline) 100 mg 1X ONCE PO ; Start 02/15/17 at 23:30; Stop 02/15/17 at 23:31; Status DC Hydralazine HCl (Apresoline) 100 mg TID PO Last administered on 02/16/17 09:53 ; Start 02/16/17 at 09:00 Hydromorphone HCl (Dilaudid) 0.5 mg 1X ONCE IV Last administered on 02/15/17 20:12; Start 02/15/17 at 20:15; Stop 02/15/17 at 20:16; Status DC Ketorolac Tromethamine (Toradol) 15 mg 1X ONCE IV Last administered on 19:35; Start 02/15/17 at 19:30; Stop 02/15/17 at 19:31; Status DC Losartan Potassium (Cozaar) 100 mg DAILY PO Last administered on 02/16/17 09: 50; Start 02/16/17 at 09:00 Metoprolol Succinate (Toprol Xl) 100 mg DAILY PO Last administered on 09:49; Start 02/16/17 at 09:00 Multivitamins (Thera M Plus) 1 tab DAILY PO Last administered on 02/16/17 09: 50; Start 02/16/17 at 09:00 Non-Formulary Medication 2 puff PRN Q4-6HRS IH ; Start 02/16/17 at 00:15; Status UNV Potassium Chloride (Klor-Con) 10 meq DAILY PO Last administered on 02/16/17 09 :52; Start 02/16/17 at 09:00 Simvastatin (Zocor) 20 mg HS PO ; Start 02/16/17 at 21:00 Sodium Chloride 500 ml @ 500 mls/hr 1X ONCE IV Last administered on 19:36; Start 02/15/17 at 19:30; Stop 02/15/17 at 20:29; Status DC Sucralfate (Carafate) 1 gm BIDBFRMEAL PO ; Start 02/16/17 at 07:30 Allergy Allergies Coded Allergies Type Severity Reaction Last Updated Verified lisinopril Allergy Intermediate 07/13/14 Yes metoclopramide Allergy Intermediate 07/23/15 Yes hydrocodone Allergy Mild shakiness 09/23/13 Yes Physical Exam Physical Exam General appearance - alert,well appearing, and in no distress and oriented to person, place, and time Mental Status - alert, oriented to person, place, and time, affect appropriate to mood Head - normal Chest - clear to auscultation, no wheezes, rales or rhonchi, symmetric air entry Heart - S1 and S2 normal Abdomen - soft, nontender, nondistended, no masses or organomegaly Neurological - alert and oriented Musculoskeletal - no muscular tenderness noted Extremities - no pedal edema Skin - warm and dry Labs Laboratory Tests Test 02/15/17 19:10 White Blood Count 3.8 x10^3/uL (4.0-11.0) Red Blood Count 4.82 x10^6/uL (3.50-5.40) Hemoglobin 12.4 g/dL (12.0-15.5) Hematocrit 37.9 % (36.0-47.0) Mean Corpuscular Volume 79 fL (79-100) Mean Corpuscular Hemoglobin 26 pg (25-35) Mean Corpuscular Hemoglobin Concent 33 g/dL (31-37) Red Cell Distribution Width 15.0 % (11.5-14.5) Platelet Count 190 x10^3/uL (140-400) Neutrophils (%) (Auto) 48 % (31-73) Lymphocytes (%) (Auto) 40 % (24-48) Monocytes (%) (Auto) 10 % (0-9) Eosinophils (%) (Auto) 2 % (0-3) Basophils (%) (Auto) 1 % (0-3) Neutrophils # (Auto) 1.8 x10^3uL (1.8-7.7) Lymphocytes # (Auto) 1.5 x10^3/uL (1.0-4.8) Monocytes # (Auto) 0.4 x10^3/uL (0.0-1.1) Eosinophils # (Auto) 0.1 x10^3/uL (0.0-0.7) Basophils # (Auto) 0.0 x10^3/uL (0.0-0.2) Sodium Level 143 mmol/L (136-145) Potassium Level 3.5 mmol/L (3.5-5.1) Chloride Level 106 mmol/L (98-107) Carbon Dioxide Level 29 mmol/L (21-32) Anion Gap 8 (6-14) Blood Urea Nitrogen 12 mg/dL (7-20) Creatinine 0.7 mg/dL (0.6-1.0) Estimated GFR (Cockcroft-Gault) 100.4 BUN/Creatinine Ratio 17 (6-20) Glucose Level 108 mg/dL (70-99) Calcium Level 9.7 mg/dL (8.5-10.1) Total Bilirubin 0.3 mg/dL (0.2-1.0) Aspartate Amino Transf (AST/SGOT) 20 U/L (15-37) Alanine Aminotransferase (ALT/SGPT) 21 U/L (14-59) Alkaline Phosphatase 82 U/L (46-116) Total Protein 8.0 g/dL (6.4-8.2) Albumin 4.0 g/dL (3.4-5.0) Albumin/Globulin Ratio 1.0 (1.0-1.7) Laboratory Tests Test 02/15/17 19:10 White Blood Count 3.8 x10^3/uL (4.0-11.0) Red Blood Count 4.82 x10^6/uL (3.50-5.40) Hemoglobin 12.4 g/dL (12.0-15.5) Hematocrit 37.9 % (36.0-47.0) Mean Corpuscular Volume 79 fL (79-100) Mean Corpuscular Hemoglobin 26 pg (25-35) Mean Corpuscular Hemoglobin Concent 33 g/dL (31-37) Red Cell Distribution Width 15.0 % (11.5-14.5) Platelet Count 190 x10^3/uL (140-400) Neutrophils (%) (Auto) 48 % (31-73) Lymphocytes (%) (Auto) 40 % (24-48) Monocytes (%) (Auto) 10 % (0-9) Eosinophils (%) (Auto) 2 % (0-3) Basophils (%) (Auto) 1 % (0-3) Neutrophils # (Auto) 1.8 x10^3uL (1.8-7.7) Lymphocytes # (Auto) 1.5 x10^3/uL (1.0-4.8) Monocytes # (Auto) 0.4 x10^3/uL (0.0-1.1) Eosinophils # (Auto) 0.1 x10^3/uL (0.0-0.7) Basophils # (Auto) 0.0 x10^3/uL (0.0-0.2) Sodium Level 143 mmol/L (136-145) Potassium Level 3.5 mmol/L (3.5-5.1) Chloride Level 106 mmol/L (98-107) Carbon Dioxide Level 29 mmol/L (21-32) Anion Gap 8 (6-14) Blood Urea Nitrogen 12 mg/dL (7-20) Creatinine 0.7 mg/dL (0.6-1.0) Estimated GFR (Cockcroft-Gault) 100.4 BUN/Creatinine Ratio 17 (6-20) Glucose Level 108 mg/dL (70-99) Calcium Level 9.7 mg/dL (8.5-10.1) Total Bilirubin 0.3 mg/dL (0.2-1.0) Aspartate Amino Transf (AST/SGOT) 20 U/L (15-37) Alanine Aminotransferase (ALT/SGPT) 21 U/L (14-59) Alkaline Phosphatase 82 U/L (46-116) Total Protein 8.0 g/dL (6.4-8.2) Albumin 4.0 g/dL (3.4-5.0) Albumin/Globulin Ratio 1.0 (1.0-1.7) Vitals Vital Signs Date Time Temp Pulse Resp B/P (MAP) Pulse Ox O2 Delivery O2 Flow Rate FiO2 02/16/17 09:53 70 146/84 02/16/17 07:00 97.9 16 98 Room Air 97.9 VTE Prophylaxis VTE Prophylaxis Devices: Yes VTE Pharmacological Prophylaxi: No Assessment Assessment acce htn anxiety refractory htn GERD depression h/o pericarditis Plan Plan admit for observation BP improved xanax for anxiety clonidine prn, d/c home later today had cardiac work up 6 months a go no ischemia, LVH. For more details regarding further plans, please refer to the orders. SEEMA VEGA MD Feb 16, 2017 10:14
[2017-02-16 11:00] VITALS: BP 125/77
[2017-02-16] MEDS ORDERED: SIMVASTATIN 20 MG TABLET PO SCH (21:00)
--- NOTE | 2017-02-17 16:04 | EKG ---
[facility] [address] [place] [address] Test Date: 2017-02-15 Test Time: 19:11:02 Pat Name: MANJIT WALTERS Department: Room: [facility] Gender: F [place] Tender: : 1945 Requested By: SEEMA VEGA Order Number: [id number] Reading MD: Measurements Intervals [place] Rate: 64 P: 39 [place]: 230 QRS: -23 QRSD: 82 T: 26 QT: 414 QTc: 431 Interpretive Statements SINUS RHYTHM PROLONGED [place] INTERVAL LEFTWARD AXIS CONSIDER LEFT VENTRICULAR HYPERTROPHY ABNORMAL ECG RI6.01 Compared to ECG 01/17/2017 22:37:26 No significant changes
--- NOTE | 2017-02-18 10:08 | PDOC3 ---
IM DISCHARGE SUMMARY Date of Admission Date of Admission Date of Admission: Feb 15, 2017 at 22:55 Date of Discharge Date of Discharge 02/15/17 Primary Diagnosis Primary Diagnosis Problems Medical Problems: (1) Anxiety Status: Acute (2) Hypertension Status: Acute Problems: Consults Consults none Brief hospital course Brief hospital course This 71 year old female who presented with head aches accelerated htn, admitted for observation. BP improved .she was d/ty home same day.she had extensive cardiac work up in the past ,neg for ischemia. For more details regarding the past history, family history, social history, surgical history and other details, please refer to History and Physical. Allergy Allergies Coded Allergies Type Severity Reaction Last Updated Verified lisinopril Allergy Intermediate 07/13/14 Yes metoclopramide Allergy Intermediate 07/23/15 Yes hydrocodone Allergy Mild shakiness 09/23/13 Yes Follow up in 5 days. Comments Discharge Management - 35 minutes. For other details please refer to discharge instructions SEEMA VEGA MD Feb 18, 2017 10:08
== END 2017-02-16 15:59 | disposition home or self-care (01) ==
LOC: ER 18:56 → 5 NORTH 22:55
PROVIDERS: ADMIT Internal Medicine; ATTEND Internal Medicine
DX: I10 Essential (primary) hypertension (principal); F41.9 Anxiety disorder, unspecified; K21.9 Gastro-esophageal reflux disease without esophagitis; F32.9 Major depressive disorder, single episode, unspecified; R51 Headache; E78.5 Hyperlipidemia, unspecified; E78.00 Pure hypercholesterolemia, unspecified; Z79.899 Other long term (current) drug therapy; Z96.659 Presence of unspecified artificial knee joint
CPT/HCPCS: 36415; 80053; 85027; 93005; 94250; 94760; 96361; 96374; 96375; 99285; A6539; G0378; J0360; J1170; J1885; J7040; G0379

== ENCOUNTER → 2017-03-16 | Outpatient (CLI) | payer OTHER ==
[2017-02-16 11:00] VITALS: BP 125/77
--- NOTE | 2017-03-16 12:54 | CARD ---
APPROVED REPORT EXAM: Two-dimensional and M-mode echocardiogram with Doppler and color Doppler. Other Information Quality : Excellent INDICATION Chest Pain 2D DIMENSIONS RVDd2.2 (2.9-3.5cm)Left Atrium(2D)3.7 (1.6-4.0cm) IVSd1.1 (0.7-1.1cm)Aortic Root(2D)2.9 (2.0-3.7cm) LVDd4.3 (3.9-5.9cm)LVOT Diameter2.0 (1.8-2.4cm) PWd0.9 (0.7-1.1cm)LVDs2.5 (2.5-4.0cm) FS (%) 30.0 %SV60.6 ml LVEF(%)60.0 (>50%) Aortic Valve AoV Peak Fitz.139.4cm/sAoV VTI31.6cm AO Peak GR.7.8mmHgAO Mean GR.5mmHg AI P 1/2 [id number] Mitral Valve MV E Mqquzlmf26.0cm/sMV DECEL [id number] MV A Pjktjnyu77.6cm/sE/A Ratio1.3 Tricuspid Valve TR P. Kmayuuqy575do/sRAP [id number] TR Peak Gr.86ebYxOPSE36elCg Pulmonary Vein S1 Dkdsbkil54.6cm/sD2 Axfldduo45.8cm/s PVa [id number] LEFT VENTRICLE The left ventricle is normal size. There is normal left ventricular wall thickness. The left ventricu lar systolic function is normal. The Ejection Fraction is 60%. There is normal LV segmental wall rachel on. Transmitral Doppler flow pattern is Grade I-abnormal relaxation pattern. RIGHT VENTRICLE The right ventricle is normal size. The right ventricular systolic function is normal. ATRIA The left atrium size is normal. The right atrium size is normal. The interatrial septum is intact wit h no evidence for an atrial septal defect or patent foramen ovale as noted on 2-D or Doppler imaging. AORTIC VALVE The aortic valve is calcified but opens well. Doppler and Color Flow revealed mild aortic regurgitati on. There is no significant aortic valvular stenosis. MITRAL VALVE The mitral valve is normal in structure and function. There is no evidence of mitral valve prolapse. There is no mitral valve stenosis. Doppler and Color-flow revealed trace mitral regurgitation. TRICUSPID VALVE The tricuspid valve is normal in structure and function. Doppler and Color Flow revealed trace tricus pid regurgitation. There is mild pulmonary hypertension. The PA pressure was estimated at 31 mmHg. Th ere is no tricuspid valve stenosis. PULMONIC VALVE The pulmonary valve is normal in structure and function. Doppler and Color Flow revealed mild pulmoni c valvular regurgitation. There is no pulmonic valvular stenosis. GREAT VESSELS The aortic root is normal in size. The ascending aorta is normal in size. The IVC is normal in size a nd collapses >50% with inspiration. PERICARDIAL EFFUSION There is no evidence of significant pericardial effusion. Critical Notification Critical Value: No <Conclusion> The left ventricular systolic function is normal. The Ejection Fraction is 60%. There is normal LV segmental wall motion. Transmitral Doppler flow pattern is Grade I-abnormal relaxation pattern. Mild aortic regurgitation. Trace mitral regurgitation. Trace tricuspid regurgitation. The PA pressure was estimated at 31 mmHg. There is no evidence of significant pericardial effusion.
== END | disposition home or self-care (01) ==
LOC: ECHO 10:28
PROVIDERS: ATTEND Internal Medicine Cardiovascular Disease
DX: I35.1 Nonrheumatic aortic (valve) insufficiency (principal); R07.9 Chest pain, unspecified
CPT/HCPCS: 93306

== ENCOUNTER → 2017-07-23 | Outpatient (CLI) | payer OTHER ==
[~2017-07-23] MED LIST changes: +METO-247 PO; -METO100T11 PO
--- NOTE | 2017-07-23 11:06 | KCIC ---
DATE: 07/23/2017 EXAM: BREAST RIGHT, DIGITAL DIAGNOSTIC BILATERAL HISTORY: Chronic bilateral breast pain with possible palpable lump involving the lateral aspect of the right breast. COMPARISON: 07/28/2016 This study was interpreted with the benefit of Computerized Aided Detection (CAD). The breast parenchyma shows scattered fibroglandular densities. Breast parenchyma level B. FINDINGS: Digital MLO and CC mammograms of both breasts were obtained. Additionally digital exaggerated craniocaudal mammograms of both breasts were obtained.. Comparison study is dated 07/18/2016. The breast parenchyma is composed of scattered fibroglandular densities which can obscure a lesion on mammography (breast density code B). No spiculated mass is seen. No malignant appearing calcification or area of architectural distortion is noted. Since the previous examination there has been no significant interval change. A real-time ultrasound examination of the upper outer quadrant of the right breast in the area of the patient's possible palpable abnormality was performed. No solid or cystic mass is seen within the visualized portions the right breast. IMPRESSION: BI-RADS Category 1, negative. There is no mammographic evidence of malignancy. Routine yearly screening mammography is recommended for follow-up. BI-RADS CATEGORY: 1 NEGATIVE RECOMMENDED FOLLOW-UP: 12M 12 MONTH FOLLOW-UP PQRS compliance statement: Patient information was entered into a reminder system with a target due date 07/23/2018 for the next mammogram. Mammography is a sensitive method for finding small breast cancers, but it does not detect them all and is not a substitute for careful clinical examination. A negative mammogram does not negate a clinically suspicious finding and should not result in delay in biopsying a clinically suspicious abnormality. "Our facility is accredited by the [employer] Mammography Program."
== END | disposition home or self-care (01) ==
LOC: KCIC MAMMO 09:22
PROVIDERS: ATTEND Obstetrics & Gynecology
DX: N64.4 Mastodynia (principal)
CPT/HCPCS: 76641; G0204; 77066

== ENCOUNTER → 2017-08-26 | Outpatient (CLI) | payer MEDICARE ==
[2017-08-26] MEDS: GADOBUTROL 7.5 MMOL/7.5 ML VIAL IV (09:32)
== END | disposition home or self-care (01) ==
LOC: MRI 08:03
DX: M54.12 Radiculopathy, cervical region (principal); E04.1 Nontoxic single thyroid nodule; M25.78 Osteophyte, vertebrae; R20.0 Anesthesia of skin
CPT/HCPCS: 72156; A9585

== ENCOUNTER → 2017-10-22 | Outpatient (CLI) | payer MEDICARE ==
[~2017-10-22] MED LIST changes: -ACET-704 PO; -ACET1TAB33 PO; -ACET325T9 PO; -ALPR0.5T PO; -ALPR0.5T6; -ALPR1TAB6 PO; -AMLO10TA2 PO; -AMLO5TAB4 PO; -ASPI-482 PO; -CLON0.1T PO; -CLON0.5T3 PO; -CYCL10TA2 PO; -DILT180C11; -DILT180C2 PO; -FLAX100017 PO; -FLUT100D IH; -FLUT50DI; -FURO-69; -FURO-69 PO; -GABA-585 PO; -HYDR-2869; -HYDR-2869 PO; -HYDR100T24 PO; +IOHEXOL 180 MG/ML 10 ML VIAL.; -LORA10TA3 PO; -LOSA100T6 PO; -METO-247 PO; -METO-269 PO; -METO100T5; -METO10TA81 PO; -MULT-18 PO; -MULT-658; -PANT40GR PO; -PANT40VI; -POTA10TA12 PO; -PROAIR HFA8.5 GM IH; -RANI150T2; -RANI150T2 PO; -SERT25TA PO; -SIME80TA14 PO; -SIMV20TA3; -SIMV20TA3 PO; -SUCR1TAB35 PO; -TELM1TAB3 PO; -TELM80TA; -[UNRECOGNIZED DRUG - OTHER]; -erythromycin PO; +methylPREDNISolone ACETATE 40 MG/ML VIAL.; +methylPREDNISolone ACETATE 80 MG/ML VIAL.
== END | disposition home or self-care (01) ==
LOC: PNCL 13:07
DX: M50.10 Cervical disc disorder with radiculopathy, unspecified cervical region (principal); M48.02 Spinal stenosis, cervical region; M19.90 Unspecified osteoarthritis, unspecified site; I31.9 Disease of pericardium, unspecified; Z79.82 Long term (current) use of aspirin; Z83.3 Family history of diabetes mellitus; Z90.710 Acquired absence of both cervix and uterus; Z96.653 Presence of artificial knee joint, bilateral; Z90.49 Acquired absence of other specified parts of digestive tract; Z98.41 Cataract extraction status, right eye; Z98.42 Cataract extraction status, left eye; Z98.890 Other specified postprocedural states; Z87.19 Personal history of other diseases of the digestive system
CPT/HCPCS: 62321; J1030; J1040; Q9965

== ENCOUNTER → 2017-12-08 | Day surgery (SDC) | payer MEDICARE ==
[~2017-12-08] MED LIST changes: -IOHEXOL 180 MG/ML 10 ML VIAL.; +LIDOCAINE 1% PF 2 ML VIAL. ID; +LIDOCAINE 2% PF Vial for OR 5 ML VIAL.; +ONDANSETRON PF 4 MG/2 ML VIAL. IV; +PROCHLORPERAZINE 10 MG/2 ML VIAL. IV; +PROPOFOL 40 ML IV; +fentaNYL PF VIAL 100 MCG/2 ML VIAL IV; -methylPREDNISolone ACETATE 40 MG/ML VIAL.; -methylPREDNISolone ACETATE 80 MG/ML VIAL.
[2017-12-08] MEDS: IV RINGERS,LACTATED 1000ML 1,000 ML IV (09:00)
== END | disposition home or self-care (01) ==
LOC: SURG 08:25
DX: Z09 Encounter for follow-up examination after completed treatment for conditions other than malignant neoplasm (principal); Z86.010 Personal history of colon polyps; K29.50 Unspecified chronic gastritis without bleeding; K21.9 Gastro-esophageal reflux disease without esophagitis; I10 Essential (primary) hypertension; F32.9 Major depressive disorder, single episode, unspecified; F41.1 Generalized anxiety disorder; M50.30 Other cervical disc degeneration, unspecified cervical region; M19.90 Unspecified osteoarthritis, unspecified site; E78.00 Pure hypercholesterolemia, unspecified; J30.9 Allergic rhinitis, unspecified; Z88.5 Allergy status to narcotic agent; Z88.8 Allergy status to other drugs, medicaments and biological substances; Z87.19 Personal history of other diseases of the digestive system; Z90.49 Acquired absence of other specified parts of digestive tract; Z90.710 Acquired absence of both cervix and uterus; Z98.890 Other specified postprocedural states; Z79.82 Long term (current) use of aspirin; Z79.899 Other long term (current) drug therapy; Z98.42 Cataract extraction status, left eye; Z98.41 Cataract extraction status, right eye; G62.9 Polyneuropathy, unspecified; Z90.722 Acquired absence of ovaries, bilateral; Z90.79 Acquired absence of other genital organ(s); Z96.60 Presence of unspecified orthopedic joint implant; Z82.49 Family history of ischemic heart disease and other diseases of the circulatory system
CPT/HCPCS: 43239; 45378; 88305; 88342; G0105; J2704

== ENCOUNTER → 2018-03-10 | Outpatient (CLI) | payer MEDICARE ==
[2018-03-10 11:56] LABS: URIC ACID 2.6 mg/dL (2.6-6.0)
[2018-03-10 12:46] LABS: SEDIMENTATION RATE 10 (0-25)
[2018-03-10 20:12] LABS: RHEUMATOID FACTOR <10.0 IU/mL (0.0-13.9)
== END | disposition home or self-care (01) ==
LOC: LAB 11:12
DX: R51 Headache (principal); I25.2 Old myocardial infarction; E11.43 Type 2 diabetes mellitus with diabetic autonomic (poly)neuropathy; E78.5 Hyperlipidemia, unspecified; E78.00 Pure hypercholesterolemia, unspecified; I11.0 Hypertensive heart disease with heart failure; I50.9 Heart failure, unspecified; J44.9 Chronic obstructive pulmonary disease, unspecified; K21.9 Gastro-esophageal reflux disease without esophagitis; I25.10 Atherosclerotic heart disease of native coronary artery without angina pectoris; Z87.19 Personal history of other diseases of the digestive system; Z86.79 Personal history of other diseases of the circulatory system; Z86.010 Personal history of colon polyps; Z79.82 Long term (current) use of aspirin; Z90.49 Acquired absence of other specified parts of digestive tract; Z90.79 Acquired absence of other genital organ(s); Z90.722 Acquired absence of ovaries, bilateral; Z82.49 Family history of ischemic heart disease and other diseases of the circulatory system
CPT/HCPCS: 36415; 84550; 85651; 86141; 86431

== ENCOUNTER → 2018-03-17 | Outpatient (CLI) | payer MEDICARE ==
[2017-12-08 10:23] VITALS: BP 118/78
[~2018-03-17] MED LIST changes: +ACET-704 PO; +ACET1TAB33 PO; +ACET325T9 PO; +ALPR0.5T PO; +ALPR0.5T6; +ALPR1TAB6 PO; +AMLO10TA2 PO; +AMLO5TAB4 PO; +ASPI-482 PO; +CLON0.1T PO; +CLON0.5T11 PO; +CYCL10TA2 PO; +DILT180C11; +DILT180C2 PO; +FLAX100017 PO; +FLUT100D IH; +FLUT50DI; +FURO-69; +FURO-69 PO; +GABA-585 PO; +HYDR-2869; +HYDR-2869 PO; +HYDR100T24 PO; -LIDOCAINE 1% PF 2 ML VIAL. ID; -LIDOCAINE 2% PF Vial for OR 5 ML VIAL.; +LORA10TA3 PO; +LOSA100T6 PO; +METO-247 PO; +METO-269 PO; +METO100T5; +METO10TA81 PO; +MULT-18 PO; +MULT-658; -ONDANSETRON PF 4 MG/2 ML VIAL. IV; +PANT40GR PO; +PANT40VI; +POTA10TA12 PO; +PROAIR HFA8.5 GM IH; -PROCHLORPERAZINE 10 MG/2 ML VIAL. IV; -PROPOFOL 40 ML IV; +RANI150T2; +RANI150T2 PO; +SERT25TA PO; +SIME80TA14 PO; +SIMV20TA3; +SIMV20TA3 PO; +SUCR1TAB35 PO; +TELM1TAB3 PO; +TELM80TA; +[UNRECOGNIZED DRUG - OTHER]; +erythromycin PO; -fentaNYL PF VIAL 100 MCG/2 ML VIAL IV
--- NOTE | 2018-03-17 08:22 | RAD ---
Bilateral lower extremity venous duplex study 03/17/2018 Clinical History: Bilateral leg swelling for 2 months intermittently, right greater than left. Technique: Using a combination of real time ultrasound imaging and color-flow and pulse Doppler imaging techniques along with graded compression and augmentation, duplex evaluation of the deep venous system of the both lower extremities was performed. Multiple images were obtained. Findings: There is no sonographic evidence of deep venous thrombosis involving the visualized deep venous structures of either lower extremity. Impression: Negative study. Electronically signed by: Ayad Lugo MD (03/17/2018 8:18 AM) [facility]
== END | disposition home or self-care (01) ==
LOC: US 07:04
PROVIDERS: ATTEND Psychiatry & Neurology Neurology
DX: R60.0 Localized edema (principal); I11.0 Hypertensive heart disease with heart failure; I50.9 Heart failure, unspecified; E11.9 Type 2 diabetes mellitus without complications; E78.00 Pure hypercholesterolemia, unspecified; J44.9 Chronic obstructive pulmonary disease, unspecified; I25.10 Atherosclerotic heart disease of native coronary artery without angina pectoris; K21.9 Gastro-esophageal reflux disease without esophagitis
CPT/HCPCS: 93970

== ENCOUNTER → 2018-03-25 | Outpatient (CLI) | payer MEDICARE ==
[2017-12-08 10:23] VITALS: BP 118/78
--- NOTE | 2018-03-25 09:20 | RAD ---
MRI Lumbar Spine without contrast History: Low back pain, worsening bilateral leg radiculopathy Technique: Multiplanar, multi sequential noncontrast MR imaging was performed of the lumbar spine. Contrast: None Comparison: March 06, 2016 Findings: Lumbar vertebral body stature is preserved. There is again negligible posterior subluxation L2 relative to L3. There has been progression of fairly advanced degenerative disc disease greater on the right at L3-4, increased degenerative endplate change, mild amorphous edema. Moderate L4-5 and mild L2-3 degenerative disc disease has also increased. There is again hemangioma of the anterior L2 vertebral body. Conus terminates at L1-2. L1-L2: Spinal canal and neural foramina are adequate. L2-L3: There is negligible bulge superimposed on the posteriorly subluxed L2 vertebral body margin as seen previously. Spinal canal and neural foramina are adequate. L3-L4: There is very minimal disc osteophyte complex as seen previously. There is mild buckling of the ligamentum flavum and right greater than left facet hypertrophic change. There is mild narrowing of the far right lateral recess from posteriorly. Neural foramina are overall adequate. L4-L5: There is again minimal disc osteophyte complex. There is dihu-ak-wxhmouao buckling of the ligamentum flavum and mild right greater than left facet hypertrophic change. There is increased mild narrowing of the far right lateral recess from posteriorly. There is similar mild narrowing of the right neural foramen, left neural foramen adequate. L5-S1: There is mild facet degenerative change. Spinal canal and neural foramina are adequate. Impression: 1. There is mild right lateral recess stenosis L3-4 and L4-5. Comparing with the 2015 exam, there has been progression of degenerative disc disease greatest at L3-4, to lesser degree at L2-3 and L4-5. There is similar mild narrowing of the right L4-5 neural foramen. Electronically signed by: Michael Banda MD (03/25/2018 9:17 AM) [facility]
== END | disposition home or self-care (01) ==
LOC: MRI 07:56
PROVIDERS: ATTEND Psychiatry & Neurology Neurology
DX: M48.061 Spinal stenosis, lumbar region without neurogenic claudication (principal); M51.36 Other intervertebral disc degeneration, lumbar region; I25.2 Old myocardial infarction; F41.9 Anxiety disorder, unspecified; I11.0 Hypertensive heart disease with heart failure; I50.9 Heart failure, unspecified; Z79.899 Other long term (current) drug therapy; E11.9 Type 2 diabetes mellitus without complications; K21.9 Gastro-esophageal reflux disease without esophagitis; F32.9 Major depressive disorder, single episode, unspecified; M19.90 Unspecified osteoarthritis, unspecified site; I25.10 Atherosclerotic heart disease of native coronary artery without angina pectoris; E78.00 Pure hypercholesterolemia, unspecified; Z79.1 Long term (current) use of non-steroidal anti-inflammatories (NSAID); Z79.82 Long term (current) use of aspirin; Z82.49 Family history of ischemic heart disease and other diseases of the circulatory system; Z83.3 Family history of diabetes mellitus; Z96.60 Presence of unspecified orthopedic joint implant; Z96.653 Presence of artificial knee joint, bilateral; Z87.11 Personal history of peptic ulcer disease; Z86.79 Personal history of other diseases of the circulatory system; Z86.010 Personal history of colon polyps; Z88.8 Allergy status to other drugs, medicaments and biological substances; Z88.5 Allergy status to narcotic agent; Z88.6 Allergy status to analgesic agent; Z90.722 Acquired absence of ovaries, bilateral; Z90.79 Acquired absence of other genital organ(s)
CPT/HCPCS: 72148

== ENCOUNTER → 2018-04-19 | Outpatient (CLI) | payer MEDICARE ==
[2017-12-08 10:23] VITALS: BP 118/78
[~2018-04-19] MED LIST changes: -AMLO10TA2 PO; +AMLO10TA6 PO; -LOSA100T6 PO; +LOSA100T7 PO; +REGADENOSON 0.4 MG/5 ML DISP.SYRIN. IV ONE
--- NOTE | 2018-04-19 11:40 | RAD ---
MR#: [id number] Date of Study: 04/19/2018 Ordering Physician: CALLIE BOWLES, Referring Physician: DEMETRA WOODRUFF Tech: NADIA Mcclendon, ARRT (R) (N) APPROVED REPORT Test Type: Pharmacological Stress Nurse/Tech: Marissa Rodriguez R.N. Test Indications: chest pain Cardiac History: htn, pericardial window 2011 Medications: see ehr Medical History: see ehr Resting ECG: sr Resting Heart Rate: 63 bpm Resting Blood Pressure: 137/77mmHg Pretest Chest Pain: No chest pain Nurse/Tech Notes lungs cta, heart tones regular Consent: The procedure was explained to the patient in lay terms. Informed consent was witnessed. Floyd eout was entered into [employer] (formerly [employer]). History and Stress Test performed by RT Ofelia (R) (N) Pharm. Details Pharmacologic stress testing was performed using 0.4mg per 5ml of regadenoson given intravenously ove r 7-10 seconds. Stress Symptoms No chest pain or symptoms. POST EXERCISE Reason for Termination: Infusion complete Target HR: No Max HR: 85 bpm Max Blood Pressure: 137/77mmHg Chest Pain: No. Arrhythmia: No. ST Change: No. INTERPRETATION Stress EKG Conclusion: Baseline EKG showed sinus rhythm. No ischemic changes at peak stress. No arr hythmias. Imaging Protocol IMAGE PROTOCOL: Rest Tc-99m/stress Tc-99m 1 day Rest: Stress: Viability: Radiopharm.Tc99m OwjdlzjohOm68d Sestamibi Dose11.6mCi 34mCi Img Date 04/19/2018 04/19/2018 Inj-Img [id number]. 60min. Rest Admin Site:IV - Left AntecubitalAdministrator:RT Flynn Gilbert)(N) Stress Admin Site: IV - Left AntecubitalAdministrator: RT Flynn Gilbert)(N) STRESS DATA End Diast. Vol.82.0mlAv. Heart Rate72.0bpm End Syst. Vol.17.0mlCO Index BSA0.0L/min Myocardial Yklm019.0gEject. Lhihbuxh68.0% Stress Rates Pk. Fill Rate4.17EDV/secLVtime Pk. Fill 195.91msec Pk. Empty Rate4.09ESV/secLVtime Pk. Uvkeh012.60msec 1/3 Pk. Fill1.54EDV/sec Stress Scores Regional WT0.00Summed WT0.00 Regional WM0.00Summed WM0.00 Study quality was good. Left Ventricular size was Normal at Rest and Stress. Lung uptake was . Left Ventricular ejection fraction is 84%. The rest and stress images show normal perfusion, normal contraction and thickening. LV Perf. Quant 17 Seg. SSS0.00 17 Seg. SRS1.00 17 Seg. SDS0.00 Stress Defect Extent (% LAD)0.00Rest Defect Extent (% LAD)1.30Rev. Defect Extent (% LAD)0.00 Stress Defect Extent (% LCX) 0.00Rest Defect Extent (% LCX)0.00Rev. Defect Extent (% LCX)0.00 Stress Defect Extent (% RCA)0.00Rest Defect Extent (% RCA)0.00Rev. Defect Extent (% RCA)0.00 Stress Defect Extent (% AYSHA)0.00Rest Defect Extent (% AYSHA)0.90Rev. Defect Extent (% AYSHA)0.00 Conclusion 1. Regadenoson cardioisotope stress test did not show any evidence of ischemia or infarct. 2. Normal left ventricular systolic function with ejection fraction calculated at 84%. 3. Low risk for cardiac events. Signed by : Tao Castellanos, Electronically Approved : 04/19/2018 11:38:47
== END | disposition home or self-care (01) ==
LOC: NM 08:44
PROVIDERS: ATTEND Internal Medicine Cardiovascular Disease
DX: R07.9 Chest pain, unspecified (principal); I11.0 Hypertensive heart disease with heart failure; I50.9 Heart failure, unspecified; I25.2 Old myocardial infarction; F41.1 Generalized anxiety disorder; E11.43 Type 2 diabetes mellitus with diabetic autonomic (poly)neuropathy; E78.5 Hyperlipidemia, unspecified; E78.00 Pure hypercholesterolemia, unspecified; F32.9 Major depressive disorder, single episode, unspecified; K21.0 Gastro-esophageal reflux disease with esophagitis; J44.9 Chronic obstructive pulmonary disease, unspecified; Z79.1 Long term (current) use of non-steroidal anti-inflammatories (NSAID); Z79.82 Long term (current) use of aspirin; Z82.49 Family history of ischemic heart disease and other diseases of the circulatory system; Z83.3 Family history of diabetes mellitus; Z87.19 Personal history of other diseases of the digestive system; Z86.79 Personal history of other diseases of the circulatory system; Z86.010 Personal history of colon polyps; Z90.722 Acquired absence of ovaries, bilateral; Z98.41 Cataract extraction status, right eye; Z98.42 Cataract extraction status, left eye; Z90.49 Acquired absence of other specified parts of digestive tract; Z90.710 Acquired absence of both cervix and uterus; Z88.5 Allergy status to narcotic agent; Z88.6 Allergy status to analgesic agent; Z88.8 Allergy status to other drugs, medicaments and biological substances; Z79.899 Other long term (current) drug therapy
CPT/HCPCS: 78452; 93017; 96374; 96375; 96376; A9500; J2785

== ENCOUNTER → 2018-06-01 | Day surgery (SDC) | payer MEDICARE ==
[~2018-06-01] MED LIST changes: +FLUT9.9S NS; +IV RINGERS,LACTATED 1000ML 1,000 ML IV SCH; +LIDOCAINE 1% PF 2 ML VIAL. ID PRN; +ONDANSETRON PF 4 MG/2 ML VIAL. IV PRN; +PROCHLORPERAZINE 10 MG/2 ML VIAL. IV PRN; +PROPOFOL 20 ML IV ONE; -REGADENOSON 0.4 MG/5 ML DISP.SYRIN. IV ONE; +SUCR1ORA5 PO; +fentaNYL PF VIAL 100 MCG/2 ML VIAL IV PRN
--- NOTE | 2018-06-01 09:54 | PDOC1 ---
HISTORY & PHYSICAL H&P Wandy Deluca [id number] 1945 05/19/2018 09:50 AM 08/03 [place] [employer] [facility], [facility] OUR PATIENTS COME FIRST [address] [place] [id number] . [phone] Patient: Wandy Deluca Date of : 1945 Date: 05/19/2018 9:50 AM Visit Type: Office Visit This 72 year old female presents for GERD. History of Present Illness: 1. GERD Additional information: Has been having significant chest discomfort and had seen her presales engineer and also had stress test and has been good. Has taken Carafate. Not on Nexium now. INTAKE COMMENTS: Intake Comments: patient states she is here due to her stomach bothering her PROBLEM LIST: Problem Description Onset Date Chronic Clinical Status Notes Anxiety state 07/17/2009 Y Mapped from [facility] Chronic Conditions table on 2013 by the ICD9 to SNOMED Bulk Mapping Utility. The mapped diagnosis code was Anxiety state, unspecified, 300.00, added by Alida Key, with responsible provider . Onset date 07/17/2009; last addressed on 09/27/2013. Carpal tunnel syndrome 07/17/2009 Y Mapped from [facility] Chronic Conditions table on 02/20/2014 by the ICD9 to SNOMED Bulk Mapping Utility. The mapped diagnosis code was Carpal tunnel syndrome, 354.0, added by Alida Key, with responsible provider . Onset date 07/17/2009; last addressed on 07/17/2009. Osteoarthritis 07/17/2009 Y Mapped from [facility] Chronic Conditions table on 2013 by the ICD9 to SNOMED Bulk Mapping Utility. The mapped diagnosis code was Osteoarthrosis, unspecified whether generalized or, 715.90, added by Alida Key, with responsible provider . Onset date 07/17/2009; last addressed on . Allergic rhinitis 07/17/2009 Y Mapped from [facility] Chronic Conditions table on by the ICD9 to SNOMED Bulk Mapping Utility. The mapped diagnosis code was Allergic rhinitis, cause unspecified, 477.9, added by Alida eKy, with responsible provider . Onset date 07/17/2009; last addressed on 2013. Benign essential hypertension 07/17/2009 Y Mapped from [facility] Chronic Conditions table on 02/20/2014 by the ICD9 to SNOMED Bulk Mapping Utility. The mapped diagnosis code was Benign essential hypertension, 401.1, added by Alida Key, with responsible provider . Onset date 07/17/2009; last addressed on . Cough 07/17/2009 Y Mapped from [facility] Chronic Conditions table on 02/20/2014 by the ICD9 to SNOMED Bulk Mapping Utility. The mapped diagnosis code was Cough, 786.2, added by Alida Key, with responsible provider . Onset date 2008; last addressed on 07/17/2009. Hemorrhoids 07/17/2009 Y Mapped from [facility] Chronic Conditions table on 2013 by the ICD9 to SNOMED Bulk Mapping Utility. The mapped diagnosis code was Unspecified hemorrhoids without mention of complic, 455.6, added by Alida Key, with responsible provider . Onset date 07/17/2009; last addressed on . Gallstone 07/17/2009 Y Mapped from [facility] Chronic Conditions table on 02/20/2014 by the ICD9 to SNOMED Bulk Mapping Utility. The mapped diagnosis code was Calculus of gallbladder without mention of cholecy, 574.20, added by Alida Key, with responsible provider . Onset date 07/17/2009; last addressed on . Anal skin tag 12/18/2015 Epigastric pain 03/25/2016 Non-cardiac chest pain 03/25/2016 Neck pain 10/09/2015 Acute bilateral low back pain without sciatica 02/05/2016 Chest pain at rest 08/06/2015 Insect bites and stings, undetermined intent, initial encounter ^ 03/17/2016 Abnormal glucose 05/06/2016 Gastroesophageal reflux disease without esophagitis 07/13/2015 Nodular goiter, non-toxic 07/13/2015 Allergic rhinitis, unspecified allergic rhinitis type 06/07/2015 Dyspepsia 09/19/2010 Y Mapped from [facility] Chronic Conditions table on 05/12/2014 by Antonia Deluca. The mapped diagnosis code was Dyspepsia and other specified disorders of functio,536.8, added by Alida Key. Onset date ; last addressed on 09/19/2010. Disease of jaw 07/17/2009 Y Mapped from [facility] Chronic Conditions table on 2013 by Antonia Deluca. The mapped diagnosis code was Diseases of the jaws, 526, added by Alida Key. Onset date 07/17/2009; last addressed on 2008. Acute erosive gastritis 05/05/2014 Y Diverticulosis 05/05/2014 Y Viral pericarditis with pericardial effusion 05/05/2014 Y Stenosis of esophagus 05/05/2014 Y PAD 05/05/2014 Y Duodenitis 05/05/2014 Y Arthritis 05/05/2014 Y DDD (degenerative disc disease), cervical 01/01/2016 Spinal enthesopathy of lumbosacral region 01/31/2016 PAST MEDICAL/SURGICAL HISTORY (Detailed) Disease/disorder Onset Date Management Date Comments mild duodenitis 12/16/2012 mild erosive gastritis 12/16/2012 Stenosis of esophgus 10/21/2011 EGD with dilation 10/21/2011 perecardial effusion viral 2012 Colonoscopy 04/26/2013 Diverticulosis/Grade 1 Internal Hemorrhoid Pericardial Window 2011 Cholecystectomy 2011 Gastritis EGD 11/05/2010 Colonoscopy with Biopsy 01/03/2010 Hyperplastic Polyps-Recall 5 years EGD 2007 Cataract extraction PAD Carpal Tunnel Surgery Left Breast Cyst Removal Hysterectomy Knee surgery Hemorrhoids History of esophageal stricture dx previously Hypertension EGD with dilation 11/2010 Allergic Rhinitis Anxiety Arthritis Carpal tunnel syndrome Cholelithiasis Diverticulosis DJD GYNECOLOGIC HISTORY: Patient is postmenopausal. Family History (Detailed) Relationship Family Member Name Age at Condition Onset Age Cause of No family history of Anxiety N Mother N Hypertension/CVA N Social History: (Detailed) The patient is right-handed. Preferred language is Telugu. 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 CHILDREN Has children: 1 son(s). HOME ENVIRONMENT Housing status is stable/permanent. The patient lives with opposite sex spouse. Tobacco use status: Never smoked tobacco. Smoking status: Never smoker. TOBACCO/VAPING EXPOSURE No passive smoke exposure. ALCOHOL There is no history of alcohol use. CAFFEINE The patient does not use caffeine. LIFESTYLE Moderate activity level. Health club member. Exercise includes walking. The patient reports there are no animals in the home. SLEEP PATTERNS Patient has no changes to sleep patterns. SPIRITISM/SPIRITUAL Practices alevism. Has spiritual beliefs. Yazidism/spirituality is an important part of the patient's life. Patient does not agree to transfusion. HOME ENVIRONMENT/SAFETY The home has smoke detectors. Carbon monoxide detector at home. The home does not have radon present. Uses seat belts. EXPERIENCE Patient has no experience. Medications (active prior to today) Medication Name Sig Description Start Date Stop Date Refilled Rx Elsewhere Centrum Silver Tab 04/03/2009 Y Aspir-81 81 mg tablet,delayed release take 1 tablet by oral route every day 01/2014 N Tylenol-Codeine #3 300 mg-30 mg tablet half bid 12/10/2016 N sucralfate 1 gram tablet take 1 tablet by oral route 2 times every day on an empty stomach 1 hour before meals and at bedtime 01/15/2017 N Lasix 20 mg tablet take 1 tablet by oral route every day 06/17/20172016 N flaxseed oil 1,000 mg capsule take 1 Capsule by Oral route every day 07/17/2017 N tizanidine 2 mg tablet take 1 tablet by oral route every 8 hours as needed not to exceed 3 doses in 24 hours 06/22/2017 N gabapentin 400 mg capsule take 1 capsule by oral route 2 times every day 2017 N hydralazine 100 mg tablet take 1 tablet by oral route 3 times every day with food 09/23/2017 09/23/2017 N nortriptyline 10 mg capsule take 1 capsule by oral route every day 09/23/2017 09/23/2017 N Flonase Allergy Relief 50 mcg/actuation nasal spray,suspension inhale 2 spray by intranasal route every day in each nostril 09/23/2017 N amlodipine 5 mg tablet take 1 tablet by oral route 2 times every day 09/23/2017 09/23/2017 N metoprolol succinate ER 100 mg tablet,extended release 24 hr take 1 tablet by oral route every day 09/23/2017 09/23/2017 N loratadine 10 mg tablet take 1 tab by mouth daily 11/13/2017 11/13/2017 N Zantac 150 mg tablet take 1 tablet by oral route 2 times every day 12/14/2017 12/14/2017 N SIMVASTATIN 20MG TAB TAKE 1 TABLET BY MOUTH EVERY EVENING 02/10/20182017 N POTASSIUM 10MEQ CONTROLLED RELEASE TABLET SR CHLORIDE MC TB TAKE 1 TABLET BY MOUTH DAILY 02/10/2018 02/10/2018 N LOSARTAN 100MG TAB TAKE 1 TABLET BY MOUTH DAILY 02/10/2018 02/10/2018 N CLONIDINE 0.1MG TAB TAKE 1 TABLET BY MOUTH TWICE DAILY 02/10/20182017 N Carafate 1 gram tablet TAKE 1 TABLET BY MOUTH TWICE DAILY 03/17/2018 03/17/2018 N alprazolam 1 mg tablet tid 04/20/2018 04/20/2018 N Medication Reconciliation Medications reconciled today. Medication Reviewed Adherence Medication Name Sig Desc Elsewhere Status taking as directed Centrum Silver Tab Y Verified taking as directed Aspir-81 81 mg tablet,delayed release take 1 tablet by oral route every day N Verified taking as directed Tylenol-Codeine #3 300 mg-30 mg tablet half bid N Verified taking as directed sucralfate 1 gram tablet take 1 tablet by oral route 2 times every day on an empty stomach 1 hour before meals and at bedtime N Verified taking as directed Lasix 20 mg tablet take 1 tablet by oral route every day N Verified taking as directed flaxseed oil 1,000 mg capsule take 1 Capsule by Oral route every day N Verified taking as directed tizanidine 2 mg tablet take 1 tablet by oral route every 8 hours as needed not to exceed 3 doses in 24 hours N Verified taking as directed gabapentin 400 mg capsule take 1 capsule by oral route 2 times every day N Verified taking as directed hydralazine 100 mg tablet take 1 tablet by oral route 3 times every day with food N Verified taking as directed nortriptyline 10 mg capsule take 1 capsule by oral route every day N Verified taking as directed Flonase Allergy Relief 50 mcg/actuation nasal spray, suspension inhale 2 spray by intranasal route every day in each nostril N Verified taking as directed amlodipine 5 mg tablet take 1 tablet by oral route 2 times every day N Verified taking as directed metoprolol succinate ER 100 mg tablet,extended release 24 hr take 1 tablet by oral route every day N Verified taking as directed loratadine 10 mg tablet take 1 tab by mouth daily N Verified taking as directed Zantac 150 mg tablet take 1 tablet by oral route 2 times every day N Verified taking as directed SIMVASTATIN 20MG TAB TAKE 1 TABLET BY MOUTH EVERY EVENING N Verified taking as directed POTASSIUM 10MEQ CONTROLLED RELEASE TABLET SR CHLORIDE MC TB TAKE 1 TABLET BY MOUTH DAILY N Verified taking as directed LOSARTAN 100MG TAB TAKE 1 TABLET BY MOUTH DAILY N Verified taking as directed CLONIDINE 0.1MG TAB TAKE 1 TABLET BY MOUTH TWICE DAILY N Verified taking as directed Carafate 1 gram tablet TAKE 1 TABLET BY MOUTH TWICE DAILY N Verified taking as directed alprazolam 1 mg tablet tid N Verified Medications (Added, Continued or Stopped today) Start Date Medication Directions PRN Status PRN Reason Instruction Stop Date 04/20/2018 alprazolam 1 mg tablet tid N 09/23/2017 amlodipine 5 mg tablet take 1 tablet by oral route 2 times every day N optum 10/07/2013 Aspir-81 81 mg tablet,delayed release take 1 tablet by oral route every day N 03/17/2018 Carafate 1 gram tablet TAKE 1 TABLET BY MOUTH TWICE DAILY N 04/03/2009 Centrum Silver Tab N 02/10/2018 CLONIDINE 0.1MG TAB TAKE 1 TABLET BY MOUTH TWICE DAILY N 07/17/2017 flaxseed oil 1,000 mg capsule take 1 Capsule by Oral route every day N 09/23/2017 Flonase Allergy Relief 50 mcg/actuation nasal spray,suspension inhale 2 spray by intranasal route every day in each nostril N optum 09/16/2017 gabapentin 400 mg capsule take 1 capsule by oral route 2 times every day N 09/23/2017 hydralazine 100 mg tablet take 1 tablet by oral route 3 times every day with food N optum 06/17/2017 Lasix 20 mg tablet take 1 tablet by oral route every day N 11/13/2017 loratadine 10 mg tablet take 1 tab by mouth daily N 02/10/2018 LOSARTAN 100MG TAB TAKE 1 TABLET BY MOUTH DAILY N 09/23/2017 metoprolol succinate ER 100 mg tablet,extended release 24 hr take 1 tablet by oral route every day N optum 09/23/2017 nortriptyline 10 mg capsule take 1 capsule by oral route every day N optum 02/10/2018 POTASSIUM 10MEQ CONTROLLED RELEASE TABLET SR CHLORIDE MC TB TAKE 1 TABLET BY MOUTH DAILY N 02/10/2018 SIMVASTATIN 20MG TAB TAKE 1 TABLET BY MOUTH EVERY EVENING N 01/15/2017 sucralfate 1 gram tablet take 1 tablet by oral route 2 times every day on an empty stomach 1 hour before meals and at bedtime N 06/22/2017 tizanidine 2 mg tablet take 1 tablet by oral route every 8 hours as needed not to exceed 3 doses in 24 hours N 12/10/2016 Tylenol-Codeine #3 300 mg-30 mg tablet half bid N 12/14/2017 Zantac 150 mg tablet take 1 tablet by oral route 2 times every day N Allergies: Ingredient Reaction (Severity) Medication Name Comment MADELEINE INHIBITORS Darvocet-N 100 ACETAMINOPHEN Darvocet-N 50 CODEINE HYDROMORPHONE HCL Lethragic Review of Systems System Neg/Pos Details Constitutional Negative Chills, Fever and Malaise. ENMT Negative Sore throat. Eyes Negative Double vision. Respiratory Negative Dyspnea and Wheezing. Cardio Negative Chest pain and Irregular heartbeat/palpitations. GI Positive See HPI. GI Negative See HPI. Negative Dysuria and Hematuria. Endocrine Negative Cold intolerance and Heat intolerance. Psych Negative Anxiety. Integumentary Negative Hives and Rash. MS Negative Joint pain. Madan/Lymph Negative Easy bleeding and Easy bruising. Allergic/Immuno Negative Animals at home and Food allergies. Reproductive Positive The patient is post-menopausal. Vital Signs Time BP mm/Hg Pulse /min Resp /min Temp F Ht ft Ht in Ht cm Wt lb Wt kg BMI kg/ m2 BSA m2 O2 Sat% 9:57 AM 140/86 73 14 97.9 5.0 4.00 162.56 178.20 80.830 30.59 1.91 98 Measured By Time Measured by 9:57 AM Radha Swygert PHYSICAL EXAM: Exam Findings Details Constitutional Normal Well developed. Eyes Normal Conjunctiva - Right: Normal, Left: Normal. Sclera - Right: Normal, Left: Normal. Nasopharynx Normal Lips/teeth/gums - Normal. Neck Exam Normal Inspection - Normal. Thyroid gland - Normal. Respiratory Normal Inspection - Normal. Auscultation - Normal. Cardiovascular Normal Regular rate and rhythm. No murmurs, gallops, or rubs. Abdomen Normal Inspection - Normal. Anterior palpation - No guarding. No abdominal tenderness. No hepatic enlargement. No spleen enlargement. No hernia. No Ascites. Skin Normal Inspection - Normal. Extremity Normal No edema. Psychiatric Normal Orientation - Oriented to time, place, person & situation. Appropriate mood and affect. Assessment/Plan # Detail Type Description 1. Assessment GERD with esophagitis (K21.0). Patient Plan schedule EGD at [facility] Plan Orders Further diagnostic evaluations ordered today include(s) EGD to be performed today. She is to schedule a follow-up visit with Leonard Claudio MD. Active Patient Care Team Members Name Contact Agency Type Support Role Relationship Active Date Inactive Date Specialty Sean Castanon MD Patient provider PCP Family Pract Jaren Claudio encounter provider [facility] Document Electronically signed: Leonard Claudio MD 05/19/2018 11:36 AM Document generated by: Leonard Claudio 05/19/2018 Sean Castanon MD, Family Practice; Tim Masterson MD Internal Medicine; Dionte Yan MD, Internal Medicine; Heron Claudio MD Internal Medicine; Leonard Claudio MD, Gastroenterology; Biju Yen MD, Rheumatology, Mariana Grant APRN ------ 06/01/18 Patient seen and examined. No change in H&P. LEONARD CLAUDIO MD Jun 01, 2018 09:54
[2018-06-01 11:31] VITALS: BP 132/51
== END | disposition home or self-care (01) ==
LOC: SURG 09:37
PROVIDERS: ATTEND Internal Medicine Gastroenterology
DX: R13.10 Dysphagia, unspecified (principal); K21.9 Gastro-esophageal reflux disease without esophagitis; F41.9 Anxiety disorder, unspecified; M19.90 Unspecified osteoarthritis, unspecified site; I10 Essential (primary) hypertension; Z87.19 Personal history of other diseases of the digestive system; Z90.49 Acquired absence of other specified parts of digestive tract; Z98.890 Other specified postprocedural states; Z90.710 Acquired absence of both cervix and uterus; Z82.49 Family history of ischemic heart disease and other diseases of the circulatory system; Z82.3 Family history of stroke; Z79.82 Long term (current) use of aspirin; Z79.899 Other long term (current) drug therapy; Z88.5 Allergy status to narcotic agent; Z88.8 Allergy status to other drugs, medicaments and biological substances; Z98.42 Cataract extraction status, left eye; Z98.41 Cataract extraction status, right eye; Z96.1 Presence of intraocular lens
CPT/HCPCS: 43235; 43450; J2704

== ENCOUNTER → 2018-06-04 | Outpatient (CLI) | payer MEDICARE ==
[2018-06-01 11:31] VITALS: BP 132/51
[~2018-06-04] MED LIST changes: -IV RINGERS,LACTATED 1000ML 1,000 ML IV SCH; -LIDOCAINE 1% PF 2 ML VIAL. ID PRN; -ONDANSETRON PF 4 MG/2 ML VIAL. IV PRN; -PROCHLORPERAZINE 10 MG/2 ML VIAL. IV PRN; -PROPOFOL 20 ML IV ONE; -fentaNYL PF VIAL 100 MCG/2 ML VIAL IV PRN
--- NOTE | 2018-06-04 15:35 | RAD ---
CT of the chest without contrast 06/04/2018 INDICATION: Follow-up lung nodule COMPARISON STUDY: CT of the chest May 23, 2016. TECHNIQUE: Multidetector CT imaging of the chest was performed without contrast FINDINGS: Heart size is normal. No pericardial effusion is identified. Limited noncontrast enhanced evaluation of the mediastinum demonstrates no gross adenopathy. Limited visualization of the upper abdomen demonstrates no acute abnormality. There is no pneumothorax, pleural effusion, or acute consolidative infiltrate. There is an unchanged groundglass density nodule in the right lung apex measuring approximately 1.1 cm in maximal diameter. IMPRESSION: 1.Grossly unchanged appearance of 1.1 cm groundglass density nodule, right lung apex. 2. No other acute cardiopulmonary process or acute change from prior exam is identified CT DOSING PQRS STATEMENT: One or more of the following individualized dose reduction techniques were utilized for this examination: 1. Automated exposure control 2. Adjustment of the mA and/or kV according to patient size 3. Use of iterative reconstruction technique Electronically signed by: nAuel Dean MD (06/04/2018 3:32 PM) [facility]
== END | disposition home or self-care (01) ==
LOC: CT 13:52
PROVIDERS: ATTEND Internal Medicine Critical Care Medicine
DX: R91.1 Solitary pulmonary nodule (principal)
CPT/HCPCS: 71250

== ENCOUNTER → 2018-07-26 | Outpatient (CLI) | payer MEDICARE ==
[2018-06-01 11:31] VITALS: BP 132/51
[~2018-07-26] MED LIST changes: +ALBU2.5V8 IH; +LOSA100T14 PO; -LOSA100T7 PO; -PROAIR HFA8.5 GM IH
--- NOTE | 2018-07-26 09:21 | RAD ---
DATE: 07/26/2018 EXAM: MAMMO ELADIO SCREENING BILATERAL HISTORY: Routine screening COMPARISON: 07/23/2017 This study was interpreted with the benefit of Computerized Aided Detection (CAD). Breast Density: SCATTERED The breast parenchyma shows scattered fibroglandular densities. Breast parenchyma level B. FINDINGS: 2-D and 3-D tomosynthesis imaging was performed in CC and MLO projections. No new or enlarging breast densities are seen. Minimal benign type calcification is present. No suspicious microcalcifications have developed. IMPRESSION: There is no mammographic evidence of malignancy in either breast. BI-RADS CATEGORY: 2 BENIGN FINDING(S) RECOMMENDED FOLLOW-UP: 12M 12 MONTH FOLLOW-UP PQRS compliance statement: Patient information was entered into a reminder system with a target due date for the next mammogram. Mammography is a sensitive method for finding small breast cancers, but it does not detect them all and is not a substitute for careful clinical examination. A negative mammogram does not negate a clinically suspicious finding and should not result in delay in biopsying a clinically suspicious abnormality. "Our facility is accredited by the [employer] Mammography Program."
== END | disposition home or self-care (01) ==
LOC: MAMMO 08:30
PROVIDERS: ATTEND Family Medicine
DX: Z12.31 Encounter for screening mammogram for malignant neoplasm of breast (principal)
CPT/HCPCS: 77063; 77067

== ENCOUNTER 2018-09-07 17:00 | Emergency (ER) | payer MEDICARE ==
[~2018-09-07] VITALS: Ht 162.6 cm; Wt 80.7 kg
[~2018-09-07 17:00] MED LIST changes: -AMLO10TA6 PO; +AMLO10TA8 PO
--- NOTE | 2018-09-07 17:49 | PHYS DOC ---
Past Medical History Past Medical History: Anxiety, Arthritis, High Cholesterol, Hypertension Additional Past Medical Histor: pericarditis, NARROW ESOPHAGUS, heart murmur Past Surgical History: Cholecystectomy, Hysterectomy, Other Additional Past Surgical Histo: pericardial window shoulder sx 2 knee replacements,pericardial window, [place] Alcohol Use: None Drug Use: None Adult General Chief Complaint Chief Complaint: HYPERTENSION HPI HPI 72-year-old female presents to ER via POV for complaints of left side neck and shoulder pain along with elevated blood pressure. She reports earlier her blood pressure was 170/100 prior to taking her blood pressure medication. Patient states she took her medicine and symptoms have slightly improved. Patient states she has chronic neck and upper back pain which she has received steroid injections following the past and sees Dr. Santos for. Patient states she was given prescription for Tylenol No. 3 but has been reluctant to take the medication as it makes her feel "funny". Pt reports she has history of neuropathy and is on gabapentin twice a day which she took this morning. Patient states she works out regularly at [employer] and had been doing any different lifting routine to build upper arm strength which was causing increased upper back and shoulder pain. Patient states she has since stopped doing that regiment approximately 2 weeks ago. Review of Systems Review of Systems Constitutional: Denies fever or chills. Denies weakness Eyes: Denies change in visual acuity, redness, or eye pain [] HENT: Denies nasal congestion or sore throat [] Respiratory: Denies cough or shortness of breath [] Cardiovascular: Denies CP GI: Denies abdominal pain, nausea, vomiting, bloody stools or diarrhea [] : Denies dysuria or hematuria [] Musculoskeletal: Reports lt side neck/shoulder pain into lt upper back Integument: Denies rash or skin lesions [] Neurologic: Denies headache, focal weakness or sensory changes. Denies dizziness All other systems were reviewed and found to be within normal limits, except as documented in this note. Current Medications Current Medications Current Medications Medications (Trade) Dose Ordered Sig/Richard Start Time Stop Time Status Last Admin Dose Admin Lidocaine (Lidoderm) 1 patch 1X ONCE 09/07/18 19:45 09/07/18 19:49 DC 09/07/18 20:14 1 PATCH Allergies Allergies Allergies Coded Allergies Type Severity Reaction Last Updated Verified lisinopril Allergy Intermediate 07/13/14 Yes metoclopramide Allergy Intermediate 07/23/15 Yes hydrocodone Allergy Mild shakiness 09/23/13 Yes Physical Exam Physical Exam Constitutional: Well developed, well nourished, no acute distress, non-toxic appearance. [] HENT: Normocephalic, atraumatic, bilateral ears normal, oropharynx moist, no oral exudates, nose normal. [] Eyes: Pupils equal, conjunctiva normal, no discharge. [] Neck: Normal range of motion, no tenderness midline cspine- no palp. deformity- tender on palp. lt lateral neck no crepitus/swelling, supple, no stridor. No gross adenopathy Cardiovascular: Heart rate regular rhythm, no murmur [] Lungs & Thorax: Bilateral breath sounds clear to auscultation. Resp. equal/ nonlabored Abdomen: Bowel sounds normal, soft, no tenderness Skin: Warm, dry, no erythema, no rash. [] Back: Tender on palp. lt upper back just above scapula- no deformity/crepitus- no midline spinal tenderness- full ROM of back, no CVA tenderness. [] Extremities: Tender posterior and lateral lt shoulder- no swelling/deformity- full ROM of lt upper extremity, no cyanosis, no clubbing, ROM intact, no edema. 2+ bilat. radial pulse Neurologic: Alert and oriented X 3, normal motor function, normal sensory function, no focal deficits noted. [] Psychologic: Affect normal, judgement normal, mood normal. [] Current Patient Data Vital Signs Vital Signs Date Time Temp Pulse Resp B/P (MAP) Pulse Ox O2 Delivery O2 Flow Rate FiO2 09/07/18 20:08 66 99 09/07/18 17:14 97.9 18 138/87 (104) Room Air 97.9 Lab Values Laboratory Tests Test 09/07/18 17:05 09/07/18 18:00 Urine Collection Type Unknown Urine Color Yellow Urine Clarity Clear Urine pH 6.0 Urine Specific [place] <=1.005 Urine Protein Negative mg/dL (NEG-TRACE) Urine Glucose (UA) Negative mg/dL (NEG) Urine Ketones (Stick) Negative mg/dL (NEG) Urine Blood Negative (NEG) Urine Nitrite Negative (NEG) Urine Bilirubin Negative (NEG) Urine Urobilinogen Dipstick 0.2 mg/dL (0.2 mg/dL) Urine Leukocyte Esterase Trace (NEG) Urine RBC 0 /HPF (0-2) Urine WBC Rare /HPF (0-4) Urine Squamous Epithelial Cells Occ /LPF Urine Bacteria 0 /HPF (0-FEW) White Blood Count 3.1 x10^3/uL (4.0-11.0) L Red Blood Count 4.84 x10^6/uL (3.50-5.40) Hemoglobin 12.1 g/dL (12.0-15.5) Hematocrit 38.7 % (36.0-47.0) Mean Corpuscular Volume 80 fL (79-100) Mean Corpuscular Hemoglobin 25 pg (25-35) Mean Corpuscular Hemoglobin Concent 31 g/dL (31-37) Red Cell Distribution Width 15.1 % (11.5-14.5) H Platelet Count 195 x10^3/uL (140-400) Neutrophils (%) (Auto) 51 % (31-73) Lymphocytes (%) (Auto) 37 % (24-48) Monocytes (%) (Auto) 10 % (0-9) H Eosinophils (%) (Auto) 2 % (0-3) Basophils (%) (Auto) 1 % (0-3) Neutrophils # (Auto) 1.6 x10^3uL (1.8-7.7) L Lymphocytes # (Auto) 1.2 x10^3/uL (1.0-4.8) Monocytes # (Auto) 0.3 x10^3/uL (0.0-1.1) Eosinophils # (Auto) 0.0 x10^3/uL (0.0-0.7) Basophils # (Auto) 0.0 x10^3/uL (0.0-0.2) Sodium Level 143 mmol/L (136-145) Potassium Level 3.6 mmol/L (3.5-5.1) Chloride Level 104 mmol/L (98-107) Carbon Dioxide Level 30 mmol/L (21-32) Anion Gap 9 (6-14) Blood Urea Nitrogen 13 mg/dL (7-20) Creatinine 0.8 mg/dL (0.6-1.0) Estimated GFR (Cockcroft-Gault) 85.8 BUN/Creatinine Ratio 16 (6-20) Glucose Level 105 mg/dL (70-99) H Calcium Level 9.3 mg/dL (8.5-10.1) Total Bilirubin 0.3 mg/dL (0.2-1.0) Aspartate Amino Transferase (AST) 19 U/L (15-37) Alanine Aminotransferase (ALT) 21 U/L (14-59) Alkaline Phosphatase 83 U/L (46-116) Troponin I Quantitative < 0.017 ng/mL (0.000-0.055) Total Protein 7.5 g/dL (6.4-8.2) Albumin 3.9 g/dL (3.4-5.0) Albumin/Globulin Ratio 1.1 (1.0-1.7) Laboratory Tests 09/07/18 18:00 Laboratory Tests 09/07/18 18:00 Microbiology 09/07/18 Urine Culture - Final, Complete 09/07/18 Urine Culture Result 1 (HOLLIS) - Final, Complete Microbiology 09/07/18 Urine Culture - Final, Complete 09/07/18 Urine Culture Result 1 (HOLLIS) - Final, Complete EKG EKG EKG obtained 09/07/18 at [address] Bravo Sinus rhythm Rate 71 No STEMI Radiology/Procedures Radiology/Procedures [] Course & Med Decision Making Course & Med Decision Making Pertinent Labs reviewed. (See chart for details) 1850: Discussed test results with patient. EKG with no acute ST elevation or STEMI and troponin was <0.017. WBCs 3.1 with previous results in pt's records at 3.8- she reports her doctor has been monitoring this. UA unremarkable. Repeat blood pressure at this time 158/78. Patient reports she has had some improvement in her neck pain without treatments- discussed lidoderm patch for additional relief and pt is agreeable with this. No imaging done as pt has had no recent injury and has had previous imaging of shoulder. Pt had no c/o SOA/ CP. ROM was intact in lt upper extremity and neck. She remains PMS intact in lt upper extremity. Discussed chronic pain as she has had previous steroid injections in lt shoulder. Pt reports she had been evaluated by her neurosurg. last month and plans to f/u with Dr. Hernandez and Dr. Santos for further care. With improved sxs discussed plans for home discharge. Pt encouraged to continue monitoring BP and to take BP meds. as Rx'd. Education provided on s&s to return to ER for and discharge instructions were discussed. Pt is in no distress during discussion. Dragon Disclaimer Dragon Disclaimer This electronic medical record was generated, in whole or in part, using a voice recognition dictation system. Departure Departure Impression: Primary Impression: Chronic pain Additional Impression: Elevated blood pressure reading Disposition: HOME, SELF-CARE Condition: STABLE Referrals: BON NELSON (PCP) Patient Instructions: Cervical Radiculopathy, Chronic Pain, Managing Your High Blood Pressure, Musculoskeletal Pain Additional Instructions: Follow-up with your primary care physician and neurosurgeon for reevaluation and further care. Continue home medications as previously prescribed. Discuss options for further pain treatment. You can use ice and/or heat compress to affected area every 3-4 hours for 20-30 minutes at a time. [id number] sports cream as directed on container. Your blood pressure readings were 158/78 and 138/87 with heart rate of 67. Problem Qualifiers MIROSLAVA LEWIS APRN Sep 07, 2018 17:49
--- NOTE | 2018-09-07 17:49 | EKG ---
[facility] [address] [place] [address] Test Date: 2018-09-07 Test Time: 17:11:37 Pat Name: MANJIT WALTERS Department: Room: Gender: F Gastroenterologist: : 1945 Requested By: MIROSLAVA LEWIS Order Number: [id number] Reading MD: Jayden Cruz MD Measurements Intervals Robertson Rate: 71 P: PA: QRS: -11 QRSD: 78 T: 121 QT: 394 QTc: 428 Interpretive Statements SR PROBABLE 1ST DEGREE AVB Electronically Signed On 09-08-2018 8:31:14 [employer] OFFICER by Jayden Cruz MD
[2018-09-07 18:12] LABS: BASO % 1 % (0-3); EOS % 2 % (0-3); HEMATOCRIT 38.7 % (36.0-47.0); HEMOGLOBIN 12.1 g/dL (12.0-15.5); LYMPH # 1.2 x10^3/uL (1.0-4.8); LYMPH % 37 % (24-48); MEAN CORPUSCULAR HEMOGLOBIN 25 pg (25-35); MEAN CORPUSCULAR HGB CONC 31 g/dL (31-37); MEAN CORPUSCULAR VOLUME 80 fL (79-100); MONO # 0.3 x10^3/uL (0.0-1.1); MONO % 10 % (0-9); NEUT # 1.6 x10^3uL (1.8-7.7); NEUT % 51 % (31-73); PLATELET COUNT 195 x10^3/uL (140-400); RED BLOOD COUNT 4.84 x10^6/uL (3.50-5.40); RED CELL DISTRIBUTION WIDTH 15.1 % (11.5-14.5); WHITE BLOOD COUNT 3.1 x10^3/uL (4.0-11.0)
[2018-09-07 18:23] LABS: CALCIUM 9.3 mg/dL (8.5-10.1); CREATININE 0.8 mg/dL (0.6-1.0); GFR 85.8; POTASSIUM 3.6 mmol/L (3.5-5.1)
[2018-09-07 18:29] LABS: ALBUMIN 3.9 g/dL (3.4-5.0); ALBUMIN/GLOBULIN RATIO 1.1 (1.0-1.7); TOTAL BILIRUBIN 0.3 mg/dL (0.2-1.0); TOTAL PROTEIN 7.5 g/dL (6.4-8.2)
[2018-09-07 18:46] LABS: BILIRUBIN,URINE NEGATIVE (NEG); CLARITY,URINE CLEAR; COLOR,URINE YELLOW; NITRITE,URINE NEGATIVE (NEG); PROTEIN,URINE NEGATIVE (NEG-TRACE); UROBILINOGEN,URINE 0.2 mg/dL (0.2 mg/dL)
[2018-09-07 18:57] LABS: BACTERIA,URINE 0 /HPF (0-FEW); RBC,URINE 0 /HPF (0-2); SQUAMOUS EPITHELIAL CELL,UR OCC /LPF; WBC,URINE RARE /HPF (0-4)
[2018-09-07] MEDS ORDERED: LIDOCAINE (700MG/PATCH) PATCH. TD ONE (19:45)
[2018-09-07 20:08] VITALS: BP 168/91
[2018-09-08] MEDS ORDERED: LIDOCAINE (700MG/PATCH) PATCH. TD SCH (09:00)
== END 2018-09-07 20:14 | disposition home or self-care (01) ==
LOC: ER 17:00
DX: G89.29 Other chronic pain (principal); M54.2 Cervicalgia; M54.6 Pain in thoracic spine; M25.512 Pain in left shoulder; I10 Essential (primary) hypertension; F41.9 Anxiety disorder, unspecified; M19.90 Unspecified osteoarthritis, unspecified site; E78.00 Pure hypercholesterolemia, unspecified; Z90.49 Acquired absence of other specified parts of digestive tract; Z90.710 Acquired absence of both cervix and uterus; Z96.653 Presence of artificial knee joint, bilateral; Z88.8 Allergy status to other drugs, medicaments and biological substances; Z88.5 Allergy status to narcotic agent
CPT/HCPCS: 36415; 80053; 81001; 84484; 85025; 87086; 93005; 99284-25

== ENCOUNTER → 2018-10-19 | Outpatient (CLI) | payer MEDICARE ==
[~2018-10-19] MED LIST changes: +IOHEXOL 180 MG/ML 10 ML VIAL. ONE; +methylPREDNISolone ACETATE 40 MG/ML VIAL. ONE; +methylPREDNISolone ACETATE 80 MG/ML VIAL. ONE
--- NOTE | 2018-10-19 12:06 | PAIN ---
DATE OF SERVICE: 10/19/2018 PROGRESS NOTE FOR PAIN CLINIC DIAGNOSES: Cervical radiculopathy with cervical spinal stenosis and cervical degenerative disk disease. HISTORY OF PRESENT ILLNESS: The patient is a 73-year-old female who returns for followup status post cervical epidural injection x 1, 10/22/2017. The patient did well with this, but the pain has returned now about 4 months ago and has been increasing in the base of neck and shoulders, somewhat worse on the right than the left, but present bilaterally, worse with lifting items using a broom at home, repetitive motions with the upper extremities, reaching over her head with her hands. The patient reports also pain with extension of the spine but not with forward flexion. The patient reports it is tight, burning, becoming more severe, on and off intensity into both the upper extremities, into the hand with some tingling and numbness as well. The patient reports the pain is 8 on a scale of 10 at its worst, a 6 on average and a 4 at its least and is a 6 today. The patient reports no new motor or sensory deficits and no new bowel or bladder incontinence or other complaints. PHYSICAL EXAMINATION: VITAL SIGNS: The patient's blood pressure is 134/72, pulse 75, respirations 18 and temperature 98.2 degrees Fahrenheit. Height is 5 feet 5 inches and weight is 177 pounds. GENERAL: The patient is awake, alert, oriented, appropriate and very pleasant demeanor. HEENT: Head shows normocephalic and atraumatic. Extraocular movements are intact and symmetrical. Oral cavity: Mucous membranes are moist and pink. Dentition is intact. NECK: Shows anterior throat supple without palpable lymphadenopathy noted. Swallow reflex symmetrical. CHEST: Shows normal with inspection. Breath sounds clear to auscultation bilaterally. HEART: Shows S1 and S2 clear. No murmurs auscultated. ABDOMEN: Soft, nontender and nondistended. No palpable organomegaly is noted. No rebound or guarding demonstrated. BACK: Shows spine grossly in the midline, normal-appearing cervical lordotic curvature and thoracic kyphotic curvature. Cervical paraspinous muscle shows symmetrical on inspection, on palpation shows some moderate tenderness diffusely bilaterally in the middle and lower cervical paraspinous musculature without radiation. This is tender into the superior medial trapezius as well bilaterally. The patient has good rotational motion of the cervical spine, both laterally greater than 45 degrees right and left as well as full extension, full forward flexion without significant pain reported some with extension but not with forward flexion. EXTREMITIES: The patient's upper extremities show deep tendon reflexes at 2+ in the biceps and triceps tendons. Motor exam is approximately 4 on a scale 5 on the right and 5/5 on the left with slip cover estimator strength bicep and tricep flexion and is symmetrical. The patient's peripheral pulses are 2+ radial distribution. No peripheral edema is noted bilaterally. Options were discussed with the patient. The patient's old chart was reviewed as well as her current medication regimen updated. Current review of systems updated today as well. We will proceed with a cervical epidural steroid injection today, is the first in this series with fluoroscopic guidance. Risks were again discussed including, but not limited to bleeding, infection, possibility of epidural hematoma, subsequent neurological compromise, dural puncture, headaches, spinal cord and/or nerve damage, side effects of steroid medication and poor results regarding pain control. The patient understands and wished to proceed. The patient will return to the clinic in approximately 2 weeks for followup, was counseled as to return appointment, activity level and side effects to be aware of. DIAGNOSES: Cervical radiculopathy with cervical spinal stenosis and cervical degenerative disk disease. PROCEDURE: Cervical epidural steroid injection, translaminar approach, C6-C7 level using C-arm fluoroscopic guidance under sterile prep and drape using local anesthetic. MEDICATION INJECTED: A total of 120 mg Depo-Medrol plus 5 mL of preservative-free normal saline and 2 mL of Isovue for contrast. CONDITION AT DISCHARGE: Stable. The patient tolerated the procedure well and had no complications. BALAJI RIVERA MD DR: EMILY/jamison JOB#: [id number] / [id number]
== END | disposition home or self-care (01) ==
LOC: PNCL 09:15
PROVIDERS: ATTEND Anesthesiology
DX: M50.123 Cervical disc disorder at C6-C7 level with radiculopathy (principal); M48.02 Spinal stenosis, cervical region; Z98.890 Other specified postprocedural states; Z88.8 Allergy status to other drugs, medicaments and biological substances
CPT/HCPCS: 62321; J1030; J1040; Q9965

== ENCOUNTER 2018-10-22 19:13 | Emergency (ER) | payer MEDICARE ==
[~2018-10-22] VITALS: Ht 165.1 cm; Wt 80.7 kg
[~2018-10-22 19:13] MED LIST changes: -IOHEXOL 180 MG/ML 10 ML VIAL. ONE; -methylPREDNISolone ACETATE 40 MG/ML VIAL. ONE; -methylPREDNISolone ACETATE 80 MG/ML VIAL. ONE
[2018-10-22 20:15] LABS: BASO % 0 % (0-3); EOS % 0 % (0-3); HEMATOCRIT 39.2 % (36.0-47.0); HEMOGLOBIN 12.3 g/dL (12.0-15.5); LYMPH # 1.9 x10^3/uL (1.0-4.8); LYMPH % 29 % (24-48); MEAN CORPUSCULAR HEMOGLOBIN 25 pg (25-35); MEAN CORPUSCULAR HGB CONC 31 g/dL (31-37); MEAN CORPUSCULAR VOLUME 80 fL (79-100); MONO # 0.7 x10^3/uL (0.0-1.1); MONO % 10 % (0-9); NEUT # 3.9 x10^3uL (1.8-7.7); NEUT % 60 % (31-73); PLATELET COUNT 223 x10^3/uL (140-400); RED BLOOD COUNT 4.91 x10^6/uL (3.50-5.40); RED CELL DISTRIBUTION WIDTH 14.8 % (11.5-14.5); WHITE BLOOD COUNT 6.5 x10^3/uL (4.0-11.0)
[2018-10-22] MEDS ORDERED: cloNIDine HCL 0.1 MG TABLET PO ONE (20:15)
[2018-10-22] MEDS ORDERED: ACETAMINOPHEN 500 MG TABLET PO ONE (20:15)
[2018-10-22 20:29] LABS: CALCIUM 9.4 mg/dL (8.5-10.1); CREATININE 0.8 mg/dL (0.6-1.0); GFR 85.6; POTASSIUM 3.2 mmol/L (3.5-5.1)
[2018-10-22 20:35] LABS: ALBUMIN 3.9 g/dL (3.4-5.0); ALBUMIN/GLOBULIN RATIO 0.9 (1.0-1.7); TOTAL BILIRUBIN 0.2 mg/dL (0.2-1.0); TOTAL PROTEIN 8.4 g/dL (6.4-8.2)
[2018-10-22 20:47] LABS: C-REACTIVE PROTEIN 0.8 mg/L (0-3.3)
--- NOTE | 2018-10-22 21:18 | RAD ---
CT HEAD WO CONTRAST History: Headache Comparison: None. Technique: Noncontrast CT imaging was performed of the head. Exposure: One or more of the following individualized dose reduction techniques were utilized for this examination: 1. Automated exposure control 2. Adjustment of the mA and/or kV according to patient size 3. Use of iterative reconstruction technique. Findings: No acute extra-axial or parenchymal hemorrhage is identified. There is no significant intra-axial mass effect, midline shift, or extra-axial fluid collection. The holly-white differentiation of the major vascular territories is preserved. The ventricles, sulci, and cisterns are within normal limits in size and configuration. The mastoid air cells and the visualized paranasal sinuses are aerated. No acute calvarial abnormality is identified. Impression: 1. No acute intracranial abnormality is identified. Electronically signed by: Michael Banda MD (10/22/2018 9:15 PM) [facility]
--- NOTE | 2018-10-22 21:35 | PHYS DOC ---
Past Medical History Past Medical History: Anxiety, Arthritis, High Cholesterol, Hypertension Additional Past Medical Histor: pericarditis, NARROW ESOPHAGUS, heart murmur Past Surgical History: Cholecystectomy, Hysterectomy, Other Additional Past Surgical Histo: pericardial window shoulder sx 2 knee replacements,pericardial window, [place] Alcohol Use: None Drug Use: None Adult General Chief Complaint Chief Complaint: HYPERTENSION HPI HPI Patient is a 73 yo female w/ HTN who presents with complaint of elevated blood pressure and intermittent right sided frontal head and jehovah's witness pain. She reports she began having the intermittent, sharp pain around 1700 which caused her to check her blood pressure which was 197/105. She chewed 4 baby aspirin and presented to ED. pain was sharp lasting only a few seconds at a time, lancinating in nature, but then pain free for several minutes at least in between. Patient reports she has had issues with her BP before however she has never had this pain with her head. She did not take pain medication for the headache.. She reports she takes hydralazine, amlodipine, and clonidine at home for her blood pressure. Patient reports her tire duster is Dr. Diez. Her PCP is Kina. She denies falling or trauma to her head. She denies chest pain, shortness of breath, abdominal complaints, changes in vision. She reports her eye feels "swollen", however she denies changes in vision. Review of Systems Review of Systems Constitutional: Denies fever or chills [] Eyes: Denies change in visual acuity, redness. Feels like her eye is "swollen" HENT: Denies nasal congestion or sore throat []Admits intermittent sharp R jehovah's witness and R frontal head pain. Respiratory: Denies cough or shortness of breath [] Cardiovascular: Denies chest pain, denies palpitations GI: Denies abdominal pain, nausea, vomiting, bloody stools or diarrhea [] : Denies dysuria or hematuria [] Musculoskeletal: Admits chronic BL shoulder pain. Integument: Denies rash or skin lesions [] Neurologic: Admits headache. Denies vision changes. All other systems were reviewed and found to be within normal limits, except as documented in this note. Current Medications Current Medications Current Medications Medications (Trade) Dose Ordered Sig/Richard Start Time Stop Time Status Last Admin Dose Admin Acetaminophen (Tylenol) 1,000 mg 1X ONCE 10/22/18 20:15 10/22/18 20:16 DC 10/22/18 20:27 1,000 MG Clonidine HCl (Catapres) 0.2 mg 1X ONCE 10/22/18 20:15 10/22/18 20:16 DC 10/22/18 20:28 0.2 MG Allergies Allergies Allergies Coded Allergies Type Severity Reaction Last Updated Verified lisinopril Allergy Intermediate 07/13/14 Yes metoclopramide Allergy Intermediate 07/23/15 Yes hydrocodone Allergy Mild shakiness 09/23/13 Yes Physical Exam Physical Exam Constitutional: Well developed, well nourished, no acute distress, non-toxic appearance. [] HENT: Normocephalic, atraumatic, bilateral external ears normal, oropharynx moist, no oral exudates, nose normal. [] there is mild ttp at the temporal region, it appears more diffuse than focal ta ttp though Eyes: PERRLA, EOMI va 20/40 in affected side. Neck: Normal range of motion, no tenderness Cardiovascular:Heart rate regular rhythm, no murmur [] Lungs & Thorax: Bilateral breath sounds clear to auscultation [] Abdomen: soft, no tenderness, no masses Skin: Warm, dry, no erythema, no rash. [] Back: No tenderness, no CVA tenderness. [] Extremities: No tenderness, no cyanosis, no clubbing, ROM intact, no edema. [] Neurologic: Alert and oriented X 3, normal motor function, normal sensory function, no focal deficits noted. [] Psychologic: Affect normal, judgement normal, mood normal. [] Current Patient Data Vital Signs Vital Signs Date Time Temp Pulse Resp B/P (MAP) Pulse Ox O2 Delivery O2 Flow Rate FiO2 10/22/18 22:30 56 20 98 10/22/18 20:28 165/81 10/22/18 19:16 98.3 Room Air 98.3 Lab Values Laboratory Tests Test 10/22/18 19:45 White Blood Count 6.5 x10^3/uL (4.0-11.0) Red Blood Count 4.91 x10^6/uL (3.50-5.40) Hemoglobin 12.3 g/dL (12.0-15.5) Hematocrit 39.2 % (36.0-47.0) Mean Corpuscular Volume 80 fL (79-100) Mean Corpuscular Hemoglobin 25 pg (25-35) Mean Corpuscular Hemoglobin Concent 31 g/dL (31-37) Red Cell Distribution Width 14.8 % (11.5-14.5) H Platelet Count 223 x10^3/uL (140-400) Neutrophils (%) (Auto) 60 % (31-73) Lymphocytes (%) (Auto) 29 % (24-48) Monocytes (%) (Auto) 10 % (0-9) H Eosinophils (%) (Auto) 0 % (0-3) Basophils (%) (Auto) 0 % (0-3) Neutrophils # (Auto) 3.9 x10^3uL (1.8-7.7) Lymphocytes # (Auto) 1.9 x10^3/uL (1.0-4.8) Monocytes # (Auto) 0.7 x10^3/uL (0.0-1.1) Eosinophils # (Auto) 0.0 x10^3/uL (0.0-0.7) Basophils # (Auto) 0.0 x10^3/uL (0.0-0.2) Erythrocyte Sedimentation Rate 13 (0-25) Sodium Level 142 mmol/L (136-145) Potassium Level 3.2 mmol/L (3.5-5.1) L Chloride Level 103 mmol/L (98-107) Carbon Dioxide Level 29 mmol/L (21-32) Anion Gap 10 (6-14) Blood Urea Nitrogen 15 mg/dL (7-20) Creatinine 0.8 mg/dL (0.6-1.0) Estimated GFR (Cockcroft-Gault) 85.6 BUN/Creatinine Ratio 19 (6-20) Glucose Level 107 mg/dL (70-99) H Calcium Level 9.4 mg/dL (8.5-10.1) Total Bilirubin 0.2 mg/dL (0.2-1.0) Aspartate Amino Transferase (AST) 18 U/L (15-37) Alanine Aminotransferase (ALT) 22 U/L (14-59) Alkaline Phosphatase 93 U/L (46-116) C-Reactive Protein, Quantitative 0.8 mg/L (0-3.3) Total Protein 8.4 g/dL (6.4-8.2) H Albumin 3.9 g/dL (3.4-5.0) Albumin/Globulin Ratio 0.9 (1.0-1.7) L Laboratory Tests 10/22/18 19:45 Laboratory Tests 10/22/18 19:45 EKG EKG [] Radiology/Procedures Radiology/Procedures [PROCEDURE: CT HEAD WO CONTRAST CT HEAD WO CONTRAST History: Headache Comparison: None. Technique: Noncontrast CT imaging was performed of the head. Exposure: One or more of the following individualized dose reduction techniques were utilized for this examination: 1. Automated exposure control 2. Adjustment of the mA and/or kV according to patient size 3. Use of iterative reconstruction technique. Findings: No acute extra-axial or parenchymal hemorrhage is identified. There is no significant intra-axial mass effect, midline shift, or extra-axial fluid collection. The holly-white differentiation of the major vascular territories is preserved. The ventricles, sulci, and cisterns are within normal limits in size and configuration. The mastoid air cells and the visualized paranasal sinuses are aerated. No acute calvarial abnormality is identified. Impression: 1. No acute intracranial abnormality is identified. Electronically signed by: Imtiaz Davila MD (10/22/2018 9:15 PM) [facility] DICTATED and SIGNED BY: IMTIAZ DAVILA MD DATE: 10/22/182114 ] Course & Med Decision Making Course & Med Decision Making Patient is a 73 yo female who presents with complaint of htn and R temporal headache. She reports the headache started around 1700 which caused her to check her BP, which was 197/105. On physical exam patient is hypertensive at 185 /105 and is tender to palpation over R temporal region. Labs are unremarkable, including normal ESR. CT head reveals no acute abnormality. Patient's BP treated with clonidine. As patient had some tenderness to palpation over temporal artery, temporal arteritis was in the differentials. Discussed with ophthalmology (Dr. Melton) who agreed that w/ normal ESR and more improtantly the history of only a few seconds of pain, the patient likely does not have temporal arteritis and does not require further temporal arteritis workup at this time. Patient's sx likely d/t headache but d/t negative CT and negative ESR feel this is not life/limb/vision threatening at this time. As patient voiced that she does not like how opioids make her feel, discussed with patient that she should treat her head pain with tylenol and follow up with PCP. Also advised patient that if symptoms worsen or persist she could return to ED. Patient voiced understanding and agreement with plan. Dragon Disclaimer Dragon Disclaimer This electronic medical record was generated, in whole or in part, using a voice recognition dictation system. Departure Departure Impression: Primary Impression: Headache Disposition: HOME, SELF-CARE Condition: STABLE Referrals: BON NELSON (PCP) KELLY DORSEY MD Oct 22, 2018 21:35
[2018-10-22 22:00] VITALS: BP 132/77
== END 2018-10-22 22:33 | disposition home or self-care (01) ==
LOC: ER 19:13
DX: R51 Headache (principal); I10 Essential (primary) hypertension; E78.00 Pure hypercholesterolemia, unspecified; Z88.5 Allergy status to narcotic agent; Z88.8 Allergy status to other drugs, medicaments and biological substances
CPT/HCPCS: 36415; 70450; 80053; 85025; 85651; 86140; 99284-25

== ENCOUNTER → 2018-11-09 | Outpatient (CLI) | payer MEDICARE ==
[2018-10-22 22:00] VITALS: BP 132/77
[2018-11-09 16:13] LABS: CREATININE 0.7 mg/dL (0.6-1.0); GFR 99.8
== END | disposition home or self-care (01) ==
LOC: LAB 15:37
PROVIDERS: ATTEND Psychiatry & Neurology Neurology
DX: G62.9 Polyneuropathy, unspecified (principal)
CPT/HCPCS: 36415; 82565; 84450; 84460; 84520

== ENCOUNTER → 2018-11-16 | Outpatient (CLI) | payer MEDICARE ==
[2018-10-22 22:00] VITALS: BP 132/77
--- NOTE | 2018-11-16 20:45 | PAIN ---
DATE OF SERVICE: 11/16/2018 DIAGNOSES: Cervical radiculopathy with cervical spinal stenosis and cervical degenerative disk. HISTORY OF PRESENT ILLNESS: The patient is a 73-year-old female who returns for followup status post cervical epidural steroid injections x 2, most recently on 10/19/2018. The patient had one prior to that about a year ago. The patient reports that the first one a year ago, did well, but the second one most recently was not significantly improving the pain. The patient reports it helped for a few days, but the pain came back, base of the neck and shoulders bilaterally, worse with activity, rotational motion of cervical spine. The patient reports her pain is 8 on a scale of 10 at its worst, 7 on average, 5 at its least and is a 7 today. The patient reports it is radiating, more constant, more tight into the upper extremities to a moderate extent, more on the right than the left, but present in the base of the shoulders and neck and the upper back primarily. The patient reports it is awakening her from sleep again. It is increasing with activity, lifting items, using her arms over her head, even driving a car. The patient reports she does not want any further injections at this time, but would like to consider some other options. The patient reports no new motor or sensory deficits, no new changes. PHYSICAL EXAMINATION: VITAL SIGNS: The patient's blood pressure is 121/66, pulse 74, respirations are 18, temperature is 97.3 degrees Fahrenheit, height is 5 feet 5 inches, weighs 175 pounds. GENERAL: The patient is awake, alert, oriented, appropriate, very pleasant demeanor. HEENT: Head shows normocephalic, atraumatic. Extraocular movements are intact and symmetrical. Oral cavity: Mucous membranes are moist and pink. Dentition is intact. NECK: Shows anterior throat supple without palpable lymphadenopathy noted. Swallow reflex is symmetrical. CHEST: Shows normal on inspection. Breath sounds clear to auscultation bilaterally. HEART: Shows S1, S2 clear. No murmurs auscultated. ABDOMEN: Soft, nontender, nondistended. No palpable organomegaly is noted. No rebound or guarding demonstrated. BACK: Shows spine grossly in the midline. Normal appearing thoracic kyphosis and lumbar lordotic curvature. Cervical paraspinous musculature shows symmetrical on inspection and palpation shows some moderate tenderness but only diffusely without significant radiation, but very firm rope-like musculature in the inferior aspect of cervical paraspinous muscles as well as bilateral trapezius muscles. The patient shows some moderate tenderness with extension, but not with forward flexion. Right and left lateral rotation is somewhat slow and guarded, but without limitation past 45 degrees right and left. EXTREMITIES: Upper extremities show deep tendon reflexes 2+ in the biceps and triceps tendons. Motor exam is approximately 4 on a scale of 5 on the right with printer slotter feeder strength and 5/5 on the left. Peripheral pulses are 2+ radial distribution. No peripheral edema is noted bilaterally. Options were discussed with the patient. The patient's old chart was reviewed as her current medication regimen and updated. Current review of systems is updated today as well. We will have physical therapy appointment made for the patient for traction of the cervical spine, ultrasound treatment as well as deep tissue massage and release as well as stretching, strengthening and flexibility exercises. The patient will follow up after physical therapy is completed and we will discuss further options if necessary at that time. BALAJI RIVERA MD DR: EMILY/jamison JOB#: [id number] / [id number] BON Storey
== END ==
LOC: PNCL 10:21
PROVIDERS: ATTEND Anesthesiology
DX: M50.10 Cervical disc disorder with radiculopathy, unspecified cervical region (principal); M48.02 Spinal stenosis, cervical region
CPT/HCPCS: G0463

== ENCOUNTER 2019-03-28 21:26 | Emergency (ER) | payer MEDICARE ==
[~2019-03-28] VITALS: Ht 165.1 cm; Wt 79.4 kg
[~2019-03-28 21:26] MED LIST changes: +CLON-77 PO; -CLON0.5T11 PO
[2019-03-28] MEDS ORDERED: ASPIRIN CHEWABLE 81 MG TABLET. PO ONE (21:45)
[2019-03-28 21:52] LABS: BASO % 1 % (0-3); EOS # 0.1 x10^3/uL (0.0-0.7); EOS % 1 % (0-3); HEMATOCRIT 35.5 % (36.0-47.0); HEMOGLOBIN 11.4 g/dL (12.0-15.5); LYMPH # 1.9 x10^3/uL (1.0-4.8); LYMPH % 26 % (24-48); MEAN CORPUSCULAR HEMOGLOBIN 26 pg (25-35); MEAN CORPUSCULAR HGB CONC 32 g/dL (31-37); MEAN CORPUSCULAR VOLUME 81 fL (79-100); MONO # 0.8 x10^3/uL (0.0-1.1); MONO % 11 % (0-9); NEUT # 4.5 x10^3/uL (1.8-7.7); NEUT % 62 % (31-73); PLATELET COUNT 216 x10^3/uL (140-400); RED BLOOD COUNT 4.41 x10^6/uL (3.50-5.40); RED CELL DISTRIBUTION WIDTH 14.3 % (11.5-14.5); WHITE BLOOD COUNT 7.3 x10^3/uL (4.0-11.0)
--- NOTE | 2019-03-28 22:15 | RAD ---
CHEST AP ONLY History: Chest pain Comparison: January 17, 2017 Findings: Single view of the chest is submitted. There is no infiltrate, pneumothorax, or effusion. The pericardial cardiac silhouette is upper limits of normal although unchanged. There is again somewhat tortuous thoracic aorta.. Impression: 1. No acute radiographic abnormality is identified. Electronically signed by: Michael Banda MD (03/28/2019 10:12 PM) [facility]
[2019-03-28 22:46] LABS: CALCIUM 9.1 mg/dL (8.5-10.1); CREATININE 0.9 mg/dL (0.6-1.0); GFR 74.7; POTASSIUM 3.4 mmol/L (3.5-5.1)
[2019-03-28 22:52] LABS: ALBUMIN 3.7 g/dL (3.4-5.0); ALBUMIN/GLOBULIN RATIO 0.8 (1.0-1.7); TOTAL BILIRUBIN 0.2 mg/dL (0.2-1.0); TOTAL PROTEIN 8.1 g/dL (6.4-8.2)
--- NOTE | 2019-03-28 23:19 | PHYS DOC ---
Past Medical History Past Medical History: Anxiety, Arthritis, High Cholesterol, Hypertension Additional Past Medical Histor: pericarditis, NARROW ESOPHAGUS, heart murmur Past Surgical History: Cholecystectomy, Hysterectomy, Other Additional Past Surgical Histo: pericardial window shoulder sx 2 knee replacements,pericardial window, [place] Alcohol Use: None Drug Use: None Adult General Chief Complaint Chief Complaint: CHEST PAIN HPI HPI Patient is a 73-year-old female who presents with 2 week history of continuous chest discomfort. She states that she was seen previously and it was documented as esophagitis. She states the pain in her chest is burning in nature. She kaity es any nausea or vomiting. She denies shortness of breath or diaphoresis. She states the pain gets better with exertion. She denies any melena or hematemesis.[] Review of Systems Review of Systems Constitutional: Denies fever or chills [] Eyes: Denies change in visual acuity, redness, or eye pain [] HENT: Denies nasal congestion or sore throat [] Respiratory: Denies cough or shortness of breath [] Cardiovascular: No additional information not addressed in HPI [] GI: Denies abdominal pain, nausea, vomiting, bloody stools or diarrhea [] : Denies dysuria or hematuria [] Musculoskeletal: Denies back pain or joint pain [] Integument: Denies rash or skin lesions [] Neurologic: Denies headache, focal weakness or sensory changes [] Endocrine: Denies polyuria or polydipsia [] All other systems were reviewed and found to be within normal limits, except as documented in this note. Current Medications Current Medications Current Medications Medications (Trade) Dose Ordered Sig/[facility] Start Time Stop Time Status Last Admin Dose Admin Aspirin (Children'S Aspirin) 324 mg 1X ONCE 03/28/19 21:45 03/28/19 21:46 DC 03/28/19 21:59 324 MG Allergies Allergies Allergies Coded Allergies Type Severity Reaction Last Updated Verified lisinopril Allergy Intermediate 07/13/14 Yes metoclopramide Allergy Intermediate 07/23/15 Yes hydrocodone Allergy Mild shakiness 09/23/13 Yes Physical Exam Physical Exam Constitutional: Well developed, well nourished, no acute distress, non-toxic appearance. [] HENT: Normocephalic, atraumatic, bilateral external ears normal, oropharynx moist, no oral exudates, nose normal. [] Eyes: PERRLA, EOMI, conjunctiva normal, no discharge. [] Neck: Normal range of motion, no tenderness, supple, no stridor. [] Cardiovascular:Heart rate regular rhythm, no murmur [] Lungs & Thorax: Bilateral breath sounds clear to auscultation [] Abdomen: Bowel sounds normal, soft, no tenderness, no masses, no pulsatile masses. [] Skin: Warm, dry, no erythema, no rash. [] Back: No tenderness, no CVA tenderness. [] Extremities: No tenderness, no cyanosis, no clubbing, ROM intact, no edema. [] Neurologic: Alert and oriented X 3, normal motor function, normal sensory function, no focal deficits noted. [] Psychologic: Anxious[] Current Patient Data Vital Signs Vital Signs Date Time Temp Pulse Resp B/P (MAP) Pulse Ox O2 Delivery O2 Flow Rate FiO2 03/28/19 21:26 98.6 96 22 161/91 (114) 97 Room Air 98.6 Lab Values Laboratory Tests Test 03/28/19 21:42 03/28/19 22:10 White Blood Count 7.3 x10^3/uL (4.0-11.0) Red Blood Count 4.41 x10^6/uL (3.50-5.40) Hemoglobin 11.4 g/dL (12.0-15.5) L Hematocrit 35.5 % (36.0-47.0) L Mean Corpuscular Volume 81 fL (79-100) Mean Corpuscular Hemoglobin 26 pg (25-35) Mean Corpuscular Hemoglobin Concent 32 g/dL (31-37) Red Cell Distribution Width 14.3 % (11.5-14.5) Platelet Count 216 x10^3/uL (140-400) Neutrophils (%) (Auto) 62 % (31-73) Lymphocytes (%) (Auto) 26 % (24-48) Monocytes (%) (Auto) 11 % (0-9) H Eosinophils (%) (Auto) 1 % (0-3) Basophils (%) (Auto) 1 % (0-3) Neutrophils # (Auto) 4.5 x10^3/uL (1.8-7.7) Lymphocytes # (Auto) 1.9 x10^3/uL (1.0-4.8) Monocytes # (Auto) 0.8 x10^3/uL (0.0-1.1) Eosinophils # (Auto) 0.1 x10^3/uL (0.0-0.7) Basophils # (Auto) 0.0 x10^3/uL (0.0-0.2) Sodium Level 143 mmol/L (136-145) Potassium Level 3.4 mmol/L (3.5-5.1) L Chloride Level 103 mmol/L (98-107) Carbon Dioxide Level 30 mmol/L (21-32) Anion Gap 10 (6-14) Blood Urea Nitrogen 18 mg/dL (7-20) Creatinine 0.9 mg/dL (0.6-1.0) Estimated GFR (Cockcroft-Gault) 74.7 BUN/Creatinine Ratio 20 (6-20) Glucose Level 101 mg/dL (70-99) H Calcium Level 9.1 mg/dL (8.5-10.1) Total Bilirubin 0.2 mg/dL (0.2-1.0) Aspartate Amino Transferase (AST) 13 U/L (15-37) L Alanine Aminotransferase (ALT) 14 U/L (14-59) Alkaline Phosphatase 106 U/L (46-116) Troponin I Quantitative < 0.017 ng/mL (0.000-0.055) PY-Ukv-L-Type Natriuretic Peptide 258 pg/mL (0-124) H Total Protein 8.1 g/dL (6.4-8.2) Albumin 3.7 g/dL (3.4-5.0) Albumin/Globulin Ratio 0.8 (1.0-1.7) L Laboratory Tests 03/28/19 21:42 Laboratory Tests 03/28/19 22:10 EKG EKG [] Interpretation Time: EKG: Normal sinus rhythm rate of [address]-T changes Radiology/Procedures Radiology/Procedures [] Impressions: PROCEDURE: CHEST AP ONLY CHEST AP ONLY History: Chest pain Comparison: January 17, 2017 Findings: Single view of the chest is submitted. There is no infiltrate, pneumothorax, or effusion. The pericardial cardiac silhouette is upper limits of normal although unchanged. There is again somewhat tortuous thoracic aorta.. Impression: 1. No acute radiographic abnormality is identified. Course & Med Decision Making Course & Med Decision Making Pertinent Labs and Imaging studies reviewed. (See chart for details) [ED course: Evaluation reveals a 73-year-old female with atypical chest pain. After 2 weeks of constant chest pain and her troponin is negative. Her EKG was also unremarkable. I reassured the patient that I did not believe this was cardiac in nature and I feel she can go home.] Dragon Disclaimer Dragon Disclaimer This electronic medical record was generated, in whole or in part, using a voice recognition dictation system. Departure Departure Impression: Primary Impression: Chest pain Disposition: 01 HOME, SELF-CARE Condition: STABLE Referrals: BON NELSON (PCP) Patient Instructions: Chest Pain (Nonspecific) Additional Instructions: Return to the emergency department with any new or concerning symptoms Problem Qualifiers Primary Impression: Chest pain Chest pain type: unspecified Qualified Codes: R07.9 - Chest pain, unspecified LUIS MIGUEL WALLIS DO Mar 28, 2019 23:19
[2019-03-28] MEDS ORDERED: oxyCODONE/APAP 5/325 1 TAB TABLET PO ONE (23:45)
[2019-03-29 00:04] VITALS: BP 158/77
--- NOTE | 2019-03-29 05:28 | EKG ---
[facility] [address] [place] [address] Test Date: 2019-03-28 Test Time: 21:32:32 Pat Name: MANJIT WALTERS Department: Room: Gender: F Claim Analyst: : 1945 Requested By: LUIS MIGUEL WALLIS Order Number: [id number] Reading MD: Jayden Cruz MD Measurements Intervals [place] Rate: 76 P: -2 [place]: 206 QRS: -4 QRSD: 78 T: 31 QT: 414 QTc: 470 Interpretive Statements SINUS RHYTHM Electronically Signed On 03-29-2019 18:53:41 CDT by Jayden Cruz MD
== END 2019-03-29 00:15 | disposition home or self-care (01) ==
LOC: ER 21:26
DX: R07.89 Other chest pain (principal); F41.9 Anxiety disorder, unspecified; M19.90 Unspecified osteoarthritis, unspecified site; E78.00 Pure hypercholesterolemia, unspecified; I10 Essential (primary) hypertension; Z90.49 Acquired absence of other specified parts of digestive tract; Z90.710 Acquired absence of both cervix and uterus; Z96.653 Presence of artificial knee joint, bilateral; Z88.8 Allergy status to other drugs, medicaments and biological substances; Z88.5 Allergy status to narcotic agent
CPT/HCPCS: 36415; 71045; 80053; 83880; 84484; 85025; 93005; 99285-25

== ENCOUNTER → 2019-03-31 | Outpatient (CLI) | payer MEDICARE ==
[2018-10-22 22:00] VITALS: BP_DIAS 77
[2019-03-29 00:04] VITALS: BP_SYST 158
--- NOTE | 2019-03-31 09:30 | RAD ---
MR#: [id number] Date of Study: 03/31/2019 Ordering Physician: CALLIE BOWLES, Referring Physician: CALLIE BOWLES, Tech: Diamante Pathak RVT,CASE APPROVED REPORT Patient Location : OUT-PATIENT Indications Lower Extremity Edema : Greater Saphenous Veins (GSV) Significant venous relux noted in the RIGHT GSV at the following levels : Superficial Femoral Junctio n, Proximal Thigh Significant venous relux noted in the LEFT GSV at the following levels : Superficial Femoral Junction Findings Grayscale images of the bilateral saphenofemoral junctions do not reveal any obvious evidence of thro mbus. The right great saphenous vein measures approximately 3 mm in the left great saphenous vein measures approximately 2 mm. Both of these veins do not show any evidence of reflux. Bilateral lesser saphenous veins are small in caliber and do not show any evidence of reflux. Critical Notification Critical Value: No <Conclusion> Negative for reflux in the bilateral greater and lesser saphenous veins. Signed by : Jayden Cruz, Electronically Approved : 03/31/2019 09:29:42
--- NOTE | 2019-03-31 09:37 | RAD ---
MR#: [id number] Date of Study: 03/31/2019 Ordering Physician: CALLIE BOWLES, Referring Physician: CALLIE BOWLES, Tech: Diamante Pathak RVT, CASE APPROVED REPORT Patient Location: OUT-PATIENT Indications Claudication: Edema VELOCITY AND DOPPLER WAVEFORM ANALYSIS RIGHT cm/secWaveformSeverity LEFT cm/secWaveform Severity pCFA 105.6TriphasicpCFA 106.6Triphasic Prof Fem Art. 64.3TriphasicProf Fem Art. 65.7Biphasic Fem Art Prox. 104.9TriphasicFem Art Prox. 104.1Triphasic Fem Art Mid. 98.3TriphasicFem Art Mid. 93.3Triphasic Fem Art Dist. 90.9TriphasicFem Art Dist. 90.4Triphasic Pop Art(Fossa) 61.3TriphasicPop Art(AK) 48.6Triphasic FUEL HANDLER Prox. 45.0TriphasicPTA Prox. 76.4Triphasic FUEL HANDLER Dist. 74.6TriphasicPTA Dist. 48.9Triphasic Per Art Dist.45.4TriphasicPer Art Dist.51.2Triphasic JESUS Dist. 81.6TriphasicATA Dist. 55.1Triphasic DPA 63TriphasicDPA 75Triphasic Findings Grayscale images of the bilateral lower extremity arterial vessels reveals mild diffuse plaque. No hi gh-grade stenosis is identified. Spectral waveforms and color Doppler are grossly within normal limits with mostly triphasic and bipha sic waveforms. There is three-vessel runoff below the knee. Critical Notification Critical Value: No <Conclusion> No significant lower extremity arterial disease bilaterally. Signed by : Jayden Cruz, Electronically Approved : 03/31/2019 09:36:42
--- NOTE | 2019-03-31 09:38 | RAD ---
MR#: [id number] Date of Study: 03/31/2019 Ordering Physician: CALLIE BOWLES, Referring Physician: CALLIE BOWLES, Tech: Diamante Pathak RVT, [facility] APPROVED REPORT Bilateral Lower Extremity Venous Study for DVT Patient Location: OUT-PATIENT Indications Lower Extremity Edema: Vein Imaging (Right) CFV (R): Compressible SFJ (R): Compressible FEM (R): Compressible POP (R): Compressible DFV (R): Compressible PTV (R): Compressible GSV (R): Compressible Peroneals (R): Compressible Vein Imaging (Left) CFV (L): Compressible SFJ (L): Compressible FEM (L): Compressible POP (L): Compressible DFV (L): Compressible PTV (L): Compressible GSV (L): Compressible Peroneals (L): Compressible Findings Technically limited study due to body habitus. Grossly the common femoral vein and popliteal vein appear to be compressible. The superficial femoral veins bilaterally were not well visualized but demonstrate spontaneous flow. The below-knee veins ag ain were not well visualized but do demonstrate spontaneous flow. Critical Notification Critical Value: No <Conclusion> Technically difficult study No obvious evidence of DVT. Signed by : Jayden Cruz, Electronically Approved : 03/31/2019 09:38:19
== END | disposition home or self-care (01) ==
LOC: US 14:30
PROVIDERS: ATTEND Internal Medicine Cardiovascular Disease
DX: R60.0 Localized edema (principal); M79.604 Pain in right leg; I70.8 Atherosclerosis of other arteries
CPT/HCPCS: 93925; 93970

== ENCOUNTER → 2019-04-28 | Outpatient (CLI) | payer MEDICARE ==
[2019-03-29 00:04] VITALS: BP 158/77
[~2019-04-28] MED LIST changes: +SIMV20TA18; +SIMV20TA18 PO; -SIMV20TA3; -SIMV20TA3 PO
--- NOTE | 2019-04-28 15:25 | KCIC ---
EXAM: Dual energy x-ray absorptiometry (DEXA). HISTORY: Postmenopausal female presents for a serosal screening. COMPARISON: 07/21/2016. TECHNIQUE: Dual energy x-ray absorptiometry of the lumbar spine and left hip was performed. Calculation of bone mineral density based on standard deviations above or below the expected young adult normal value (T-score) was completed. FINDINGS: The average bone mineral density in the 1st through 4th lumbar vertebrae is 1.376 g/cmxcm, corresponding with a T-score of 3.0. There has been a 6.2% increase in density of the lumbar spine compared to the prior study. The average total bone mineral density in the left hip is 1.110 g/cmxcm, corresponding with a T-score of 1.4. There is been a 4.3% decrease in density of the left hip compared to the prior study. IMPRESSION: Normal bone mineral density. Note: Definitions established by the World Health Organization: 1. Normal: T-score is -1.0 or above. 2. Osteopenia: T-score is between -1.0 and -2.5 . 3. Osteoporosis: T-score is -2.5 or below. Electronically signed by: Anisa Gupta MD (04/28/2019 3:22 PM) [facility]
--- NOTE | 2019-04-28 18:20 | KCIC ---
Examination: THYROID ULTRASOUND History: Goiter Comparison/Correlation: 07/02/2012 CT chest without contrast Findings: Thyroid ultrasound exam was performed. Right thyroid lobe measures 4.2 cm x 1.7 centimeter x 1.7 cm. Left thyroid lobe measures 4.4 cm x 2 cm x 1.4 cm. Thyroid isthmus measures up to 0.3 cm in thickness. Normal flow on color Doppler imaging bilaterally seen. At the right thyroid superior pole, there is a 1.5 cm x 1.3 cm x 1.0 cm tall intermediate echogenicity well-circumscribed nodule. Minimal flow in the nodule seen. Punctate nodules are otherwise seen involving the right thyroid lobe at multiple sites. At the left thyroid lower pole region, there is a 1.9 cm x 1.50 x 0.90 tell heterogeneous, intermediate echogenicity well-circumscribed nodule. Minimal flow in its periphery is seen. Additional nodule in the inferior aspect of the left thyroid lobe measures 1 cm x 0.6 x 0.7 cm. Few punctate smaller nodules are also evident throughout the left thyroid lobe. Thyroid gland overall is heterogeneous in appearance. Impression: Heterogeneous thyroid gland. Nodules are present without aggressive features. Findings of goiter. Thyroid gland is mostly visualized on the previous CT chest exam of 07/02/2012 except the very superior aspect. The largest of the left thyroid nodules is stable since then. Electronically signed by: Sabino Butler MD (04/28/2019 6:18 PM) [facility]
== END | disposition home or self-care (01) ==
LOC: KCIC DEXA 14:04
PROVIDERS: ATTEND Family Medicine
DX: Z13.820 Encounter for screening for osteoporosis (principal); M81.0 Age-related osteoporosis without current pathological fracture; M85.88 Other specified disorders of bone density and structure, other site; E04.1 Nontoxic single thyroid nodule
CPT/HCPCS: 76536; 77080

== ENCOUNTER → 2019-07-28 | Outpatient (CLI) | payer MEDICARE ==
[~2019-07-28] MED LIST changes: -POTA10TA12 PO; +POTASSIUM CHLO10 ME1 PO
--- NOTE | 2019-07-28 16:56 | RAD ---
DATE: 07/28/2019. EXAM: MAMMO ELADIO SCREENING BILATERAL. HISTORY: Routine mammographic screening. COMPARISON: 07/26/2018. This study was interpreted with the benefit of Computerized Aided Detection (CAD). FINDINGS: Breast Density: SCATTERED The breast parenchyma shows scattered fibroglandular densities. Breast parenchyma level B.. There are no suspicious masses, microcalcifications or architectural distortion. Scattered calcifications are benign. The parenchymal pattern is stable. BI-RADS CATEGORY: 2 BENIGN FINDING(S). RECOMMENDED FOLLOW-UP: 12M 12 MONTH FOLLOW-UP. PQRS compliance statement: Patient information was entered into a reminder system with a target due date 07/28/2020 for the next mammogram. Mammography is a sensitive method for finding small breast cancers, but it does not detect them all and is not a substitute for careful clinical examination. A negative mammogram does not negate a clinically suspicious finding and should not result in delay in biopsying a clinically suspicious abnormality. "Our facility is accredited by the [employer] Mammography Program."
== END | disposition home or self-care (01) ==
LOC: MAMMO 09:08
PROVIDERS: ATTEND Family Medicine
DX: Z12.31 Encounter for screening mammogram for malignant neoplasm of breast (principal); N64.89 Other specified disorders of breast
CPT/HCPCS: 77063; 77067

== ENCOUNTER → 2019-09-07 | Outpatient (CLI) | payer MEDICARE ==
[~2019-09-07] MED LIST changes: +REGADENOSON 0.4 MG/5 ML DISP.SYRIN. IV ONE
--- NOTE | 2019-09-07 08:49 | CARD ---
MR#: [id number] Date of Study: 09/07/2019 Ordering Physician: CALLIE BOWLES, Referring Physician: CALLIE BOWLES, Tech: Elsi Ramirez MARINA APPROVED REPORT EXAM: Two-dimensional and M-mode echocardiogram with Doppler and color Doppler. Other Information Quality : GoodHR: 67bpm INDICATION Hx pericardial effusion (2011), SAINZ RISK FACTORS Hypertension Hyperlipidemia 2D DIMENSIONS RVDd3.2 (2.9-3.5cm)Left Atrium(2D)3.4 (1.6-4.0cm) IVSd1.4 (0.7-1.1cm)Aortic Root(2D)3.0 (2.0-3.7cm) LVDd4.2 (3.9-5.9cm)LVOT Diameter2.0 (1.8-2.4cm) PWd0.8 (0.7-1.1cm)LVDs3.0 (2.5-4.0cm) FS (%) 29.4 %SV45.4 ml LVEF(%)56.6 (>50%) Aortic Valve AoV Peak Fitz.133.2cm/Dragan Peak GR.7.1mmHg LVOT Peak Fitz.112.1cm/sAVA (VMAX)2.55cm2 AI P 1/2 Bnhb121iy Mitral Valve MV E Jblucsof45.2cm/sMV DECEL [id number] MV A Cjvssvsa04.5cm/sE/A Ratio1.4 MV A [id number] Pulmonary Valve PV Peak Hnsdftfe84.9cm/s Tricuspid Valve TR P. Jtznkpum214ee/sRAP OISLIODK9blQq TR Peak Gr.32feKuIDUX11caHx Pulmonary Vein S1 Omhjapwp86.5cm/sD2 Mbenxghw03.9cm/s PVa [id number] LEFT VENTRICLE The left ventricle is normal size. There is normal left ventricular wall thickness. The left ventricu lar systolic function is normal. The Ejection Fraction is 60%. There is normal LV segmental wall rachel on. Transmitral Doppler flow pattern is Grade II-pseudonormal filling dynamics. There is no ventricul ar septal defect visualized. RIGHT VENTRICLE The right ventricle is normal size. The right ventricular systolic function is normal. ATRIA The left atrium is moderately dilated. The right atrium is mildly dilated. The interatrial septum is intact with no evidence for an atrial septal defect or patent foramen ovale as noted on 2-D or Dopple r imaging. AORTIC VALVE The aortic valve is mildly thickened but opens well. Doppler and Color Flow revealed mild aortic regu rgitation. There is no significant aortic valvular stenosis. MITRAL VALVE The mitral valve is normal in structure and function. There is no evidence of mitral valve prolapse. There is no mitral valve stenosis. Doppler and Color-flow revealed trace to mild mitral regurgitation . TRICUSPID VALVE The tricuspid valve is normal in structure and function. Doppler and Color Flow revealed trace tricus pid regurgitation. PAP is estimated at 31 mmHg. There is no tricuspid valve stenosis. PULMONIC VALVE The pulmonary valve is normal in structure and function. Doppler and Color Flow revealed trace pulmon ic valvular regurgitation. There is no pulmonic valvular stenosis. GREAT VESSELS The aortic root is normal in size. The ascending aorta is normal in size. The pulmonary artery is nor mal. The IVC is normal in size and collapses >50% with inspiration. PERICARDIAL EFFUSION There is no pleural effusion. There is no evidence of significant pericardial effusion. Critical Notification Critical Value: No <Conclusion> The left ventricular systolic function is normal. The Ejection Fraction is 60%. There is normal LV segmental wall motion. Mild aortic regurgitation. Trace to mild mitral regurgitation. Trace tricuspid regurgitation. PAP is estimated at 31 mmHg. There is no evidence of significant pericardial effusion. Signed by : Tao Castellanos, Electronically Approved : 09/07/2019 08:49:39
--- NOTE | 2019-09-07 13:28 | RAD ---
MR#: [id number] Date of Study: 09/07/2019 Ordering Physician: CALLIE BOWLES, Referring Physician: DEMETRA WOODRUFF Tech: RT Flynn Rosales) (N) APPROVED REPORT Test Type: Pharmacological Stress Nurse/Tech: Morena Tamez RN Test Indications: dyspnea on exertion Cardiac History: Pericardial window 2011, HTN Medications: See Electronic Medical Record Medical History: See Electronic Medical Record Resting ECG: SR Resting Heart Rate: 57 bpm Resting Blood Pressure: 155/81mmHg Pretest Chest Pain: None Nurse/Tech Notes lungs CTA, S1S2 Consent: The procedure was explained to the patient in lay terms. Informed consent was witnessed. Floyd eout was entered into [employer]. History and Stress Test performed by RT Bobby (Andrea) (N) Pharm. Details Pharmacologic stress testing was performed using 0.4mg per 5ml of regadenoson given intravenously ove r 7-10 seconds. Stress Symptoms dyspnea POST EXERCISE Reason for Termination: Infusion complete Max Blood Pressure: 165/102mmHg Blood Pressure response to exercise: Normal blood pressure response during stress. Heart Rate response to exercise: normal response Chest Pain: No. Arrhythmia: No. ST Change: No. INTERPRETATION Stress EKG Conclusion: Baseline EKG showed sinus rhythm. No ischemic changes at peak stress. No arr hythmias. Imaging Protocol IMAGE PROTOCOL: Rest Tc-99m/stress Tc-99m 1 day Rest: Stress: Viability: Radiopharm.Tc99m GdfrbicblXc52g Sestamibi Lfbx16hMx 34mCi Duration 15min. 15min. Img Date 09/07/2019 09/07/2019 Inj-Img Vhtm00jum. 60min. Rest Admin Site:IV - Left AntecubitalAdministrator:RT Bobby (Andrea)(N) Stress Admin Site: IV - Left AntecubitalAdministrator: RT Bobby (R)(N) STRESS DATA End Diast. Vol.85.0mlLVEDV index BSA46.0ml End Syst. Vol.23.0mlLVESV index BSA12.0ml Myocardial Piml025.0gEject. Vevbyxlr29.0% Stress Scores Regional WT1.00Summed WT5.00 Regional WM0.00Summed WM3.00 LV Perfusion Scintigraphic images showed apical wall thinning most probably breast attenuation artifact but there appears to be small underlying reversible defect suspicious for ischemia. Wall Motion Normal left ventricle systolic function with ejection fraction calculated at 73%. LV Perf. Quant 17 Seg. SSS7.00 17 Seg. SRS2.00 17 Seg. SDS6.00 Stress Defect Extent (% LAD)28.10Rest Defect Extent (% LAD)15.00Rev. Defect Extent (% LAD)14.40 Stress Defect Extent (% LCX) 16.30Rest Defect Extent (% LCX)1.30Rev. Defect Extent (% LCX)7.50 Stress Defect Extent (% RCA)0.00Rest Defect Extent (% RCA)0.00Rev. Defect Extent (% RCA)0.00 Stress Defect Extent (% AYSHA)17.80Rest Defect Extent (% AYSHA)5.40Rev. Defect Extent (% AYSHA)9.30 Conclusion 1. Regadenoson cardioisotope stress test showed breast attenuation artifact with possible small amoun t of underlying apical wall ischemia. 2. Normal left ventricular systolic function with ejection fraction calculated at 73%. 3. Low risk for cardiac events. Signed by : Tao Castellanos, Electronically Approved : 09/07/2019 13:28:12
== END | disposition home or self-care (01) ==
LOC: ECHO 07:19
PROVIDERS: ATTEND Internal Medicine Cardiovascular Disease
DX: I08.0 Rheumatic disorders of both mitral and aortic valves (principal); I10 Essential (primary) hypertension
CPT/HCPCS: 78452; 93017; 93306; A9500; J2785

== ENCOUNTER → 2020-05-16 | Outpatient (CLI) | payer MEDICARE ==
[~2020-05-16] MED LIST changes: +AMLO-187 PO; -AMLO10TA8 PO; -REGADENOSON 0.4 MG/5 ML DISP.SYRIN. IV ONE
--- NOTE | 2020-05-16 11:08 | KCIC ---
CERVICAL SPINE WO CONTRAST DATE: 05/16/2020 8:45 AM INDICATION: Reason: SPINAL STENOSIS IN CERVICAL REGION / Spl. Instructions: / History: Chronic neck pain into both shoulders. Prev pain management, no surg hx. TECHNIQUE: Multiplanar multisequence magnetic resonance imaging of the cervical spine was performed without administration of intravenous contrast using the standard cervical spine protocol. COMPARISON: 08/26/2017. FINDINGS: Reversal of the cervical lordosis centered at C4-5. No acute fracture. Advanced multilevel degenerative disc desiccation and disc height loss. Multilevel degenerative endplate edema. The spinal cord is normal in signal intensity. On the limited views of the cranial cavity and brain, the cerebellum and adi have normal morphology and signal characteristics. No Chiari malformation. No soft tissue abnormality. Normal signal voids are present in the vertebral arteries. C2-3: Disc osteophyte complex. Uncovertebral hypertrophy. Mild right and moderate left facet arthropathy. Mild right and moderate left left neural foraminal narrowing. No spinal canal stenosis. C3-4: Disc osteophyte complex. Uncovertebral hypertrophy. Severe left facet arthropathy. Mild right and moderate to severe left neural foraminal narrowing. Mild spinal canal stenosis. C4-5: Disc osteophyte complex. Uncovertebral hypertrophy. Mild right and moderate left facet arthropathy. Moderate neural foraminal narrowing. Mild spinal canal stenosis. C5-6: Disc osteophyte complex. Uncovertebral hypertrophy. Mild facet arthropathy. Moderate neural foraminal narrowing no spinal canal stenosis. C6-7: Disc osteophyte complex per Uncovertebral hypertrophy. Mild facet arthropathy. Mild neural foraminal narrowing. No spinal canal stenosis. C7-T1: Disc osteophyte complex. Uncovertebral hypertrophy. Mild facet arthropathy. Mild neural foraminal narrowing. No spinal canal stenosis. IMPRESSION: Moderate to severe cervical spondylosis, similar to the prior exam and detailed level by level above. No severe spinal canal stenosis. Electronically signed by: Michael Wall MD (05/16/2020 11:05 AM) [id number]
== END ==
LOC: KCIC MRI 08:17
PROVIDERS: ATTEND Nurse Practitioner Family
DX: M47.813 Spondylosis without myelopathy or radiculopathy, cervicothoracic region (principal); M25.78 Osteophyte, vertebrae; M48.02 Spinal stenosis, cervical region
CPT/HCPCS: 72141

== ENCOUNTER → 2020-07-10 | Outpatient (CLI) | payer MEDICARE ==
--- NOTE | 2020-07-10 12:23 | RAD ---
EXAMINATION: MAMMO ELADIO DIAG BILAT History: BREAST PAIN / Comparison: 07/28/2019, 07/26/2018, 07/23/2017, 07/18/2016, 07/19/2015. Technique: Bilateral digital diagnostic mammogram views were obtained. CAD was utilized. 3-D tomosynthesis images were acquired. Findings: Breast Tissue Density B : There are scattered areas of fibroglandular density. There are no dominant masses, suspicious microcalcifications, or architectural distortion. IMPRESSION: No mammographic evidence of malignancy. Recommend routine screening. BI-RADS category 1: Negative. The images were reviewed with computer aided detection. Patient information is entered into the reminder system with a target due date for the next screening mammogram. Mammography is the most sensitive method for finding small breast cancers, but it does not detect them all and is not a substitute for careful clinical examination. A negative mammogram does not negate a clinically suspicious finding and should not result in delay in biopsying a clinically suspicious abnormality. "Our facility is accredited by the [employer] Mammography Program." Electronically signed by: Sabino Butler MD (07/10/2020 12:21 PM) [facility]
== END ==
LOC: MAMMO 09:27
PROVIDERS: ATTEND Internal Medicine
DX: N64.4 Mastodynia (principal); N64.9 Disorder of breast, unspecified
CPT/HCPCS: 77066; G0279; 77062

== ENCOUNTER → 2020-07-12 | Outpatient (CLI) | payer MEDICARE | LOC: LAB 11:32 | PROVIDERS: ATTEND Internal Medicine Gastroenterology | DX: Z01.812 Encounter for preprocedural laboratory examination (principal); R13.10 Dysphagia, unspecified; Z20.828 Contact with and (suspected) exposure to other viral communicable diseases | CPT/HCPCS: U0003 ==

== ENCOUNTER → 2020-07-16 | Day surgery (SDC) | payer MEDICARE ==
[~2020-07-16] MED LIST changes: +HYDROmorphone 2 MG/ML VIAL IV PRN; +IV RINGERS,LACTATED 1000ML 1,000 ML IV SCH; +LIDOCAINE 1% PF 2 ML VIAL. ID PRN; +LIDOCAINE 2% PF 5 ML VIAL. ONE; +MORPHINE SULFATE 2 MG/ML VIAL. IV PRN; +ONDANSETRON PF 4 MG/2 ML VIAL. IV PRN; +PROCHLORPERAZINE 10 MG/2 ML VIAL. IV PRN; +PROPOFOL 10 MG/ML (20ML) VIAL. IV ONE; +fentaNYL PF VIAL 100 MCG/2 ML VIAL IV PRN
--- NOTE | 2020-07-16 13:10 | PDOC4 ---
PROCEDURE Procedure EGD/dilate esophagus Indication: dysphagia Meds: per anesthesia Findings: E--tertiary contractions, healed reflux at 38cm. G--Normal D--Normal to second portion. Dilated with 52F bustos w/o resistance. Gurpreet. well. IMP: Likely presbyesophagus Healed reflux. REC: continue current meds. resume diet. F/u in 2 weeks. STEVE SMALL MD Jul 16, 2020 13:10
[2020-07-16 13:45] VITALS: BP 126/77
== END | disposition home or self-care (01) ==
LOC: ENDOS 12:01
PROVIDERS: ATTEND Internal Medicine Gastroenterology
DX: R13.10 Dysphagia, unspecified (principal); K21.00 Gastro-esophageal reflux disease with esophagitis, without bleeding; E78.00 Pure hypercholesterolemia, unspecified; I10 Essential (primary) hypertension; M19.90 Unspecified osteoarthritis, unspecified site; F41.9 Anxiety disorder, unspecified; F32.9 Major depressive disorder, single episode, unspecified; Z90.710 Acquired absence of both cervix and uterus; Z90.49 Acquired absence of other specified parts of digestive tract; Z98.890 Other specified postprocedural states; Z79.899 Other long term (current) drug therapy; Z79.82 Long term (current) use of aspirin; Z88.8 Allergy status to other drugs, medicaments and biological substances; Z82.49 Family history of ischemic heart disease and other diseases of the circulatory system
CPT/HCPCS: 43450; J2704

== ENCOUNTER → 2020-08-31 | Outpatient (CLI) | payer MEDICARE ==
[2020-07-16 13:45] VITALS: BP 126/77
[~2020-08-31] MED LIST changes: -HYDROmorphone 2 MG/ML VIAL IV PRN; -IV RINGERS,LACTATED 1000ML 1,000 ML IV SCH; -LIDOCAINE 1% PF 2 ML VIAL. ID PRN; -LIDOCAINE 2% PF 5 ML VIAL. ONE; -MORPHINE SULFATE 2 MG/ML VIAL. IV PRN; -ONDANSETRON PF 4 MG/2 ML VIAL. IV PRN; -PROCHLORPERAZINE 10 MG/2 ML VIAL. IV PRN; -PROPOFOL 10 MG/ML (20ML) VIAL. IV ONE; -fentaNYL PF VIAL 100 MCG/2 ML VIAL IV PRN
--- NOTE | 2020-08-31 14:38 | RAD ---
Thyroid ultrasound compared to similar exam dated 04/28/2019 for thyroid goiter. TECHNIQUE AND FINDINGS: Real-time grayscale and color Doppler evaluation of the thyroid gland is perf ormed. The right lobe measures 3.9 x 2.0 x 1.8 cm and the left measures 4.1 x 1.7 x 1.6 cm. Isthmus m easures 4 mm in thickness. There is normal blood flow throughout the gland. Background echotexture is heterogeneous. On the right, there is 1.3 x 1.0 x 1.1 cm solid wider than tall isoechoic nodule with no internal echogenic foci in smooth margins, corresponding to a TR 3 lesion. On the left, there is a 2.0 x 1.0 x 1.1 cm solid heterogeneous but predominantly isoechoic nodule with indistinct margins a nd no internal echogenic calculi, which is wider than tall, and corresponds to a TR3 lesion. This is in the midpole. At the inferior pole, there is a 0.5 x 0.6 x 0.5 cm solid wider than tall hypoechoic nodule with indistinct margins and no internal echogenic foci, constituting a TR 4 nodule. A small be nign spongiform nodule seen in the superior pole. No suspicious adenopathy is evident. IMPRESSION: 1. Multiple thyroid nodules as described above. ACR TI-RADS 2017 Composition - cystic or completely cystic: Benign, no further score - spongiform: Benign, no further score - mixed cystic and Solid: 1 point - solid or almost completely solid: 2 points Echogenicity - anechoic: 0 points - hyper- or isoechoic: 1 point - hypoechoic: 2 points - very hypoechoic: 3 points Shape (assess on transverse plane) - wider than tall: 0 points - taller than wide: 3 points Margin - smooth: 0 points - ill-defined: 0 points - lobulated/irregular: 2 points - extra-thyroidal extension: 3 points Echogenic Foci - none: 0 points - large comet tail artifact: 1 point - peripheral/rim calcifications: 2 points - punctate echogenic foci: 3 points TR1 - 0-1 points; Benign TR2 - 2 points; Not Suspicious TR3 - 3 points; Mildly Suspicious; Follow-up at 1,3,5 years for >= 1.5cm and FNA for >=2.5cm TR4 - 4-6 points; Moderately Suspicious; Follow-up at 1,2,3,5 years for >= 1.0cm and FNA for >= 1.5cm TR5 - 7+ points; Highly Suspicous; Follow=up at 1,2,3,4,5 years for >= 0.5cm and FNA for >= 1.0cm Notes: Only score and report the Four highest scoring nodules. Significant interval enlargement on fo llow-uup is defined as >20% and > 2mm in two dimensions or > 50% increase in volume. If there are mul tiple nodules, the two with the highest ACR TI-RADS score should be sampled, rather than the two larg est. Electronically signed by: Daniel Ulloa MD (08/31/2020 2:35 PM) [id number]
== END ==
LOC: US 09:31
PROVIDERS: ATTEND Specialist
DX: E04.1 Nontoxic single thyroid nodule (principal)
CPT/HCPCS: 76536

== ENCOUNTER 2020-12-14 19:52 | Observation (INO) | payer MEDICARE ==
[~2020-12-14] VITALS: Ht 165.1 cm; Wt 81.0 kg
[~2020-12-14 19:52] MED LIST changes: -FLUT100D IH; +FLUT100D2 IH
--- NOTE | 2020-12-14 20:16 | EKG ---
[facility] [address] [place] [address] Test Date: 2020-12-14 Test Time: 20:10:58 Pat Name: MANJIT WALTERS Department: Room: Gender: F [employer] Developer: : 1945 Requested By: EDNA STALEY Order Number: [id number] Reading MD: Measurements Intervals [place] Rate: 75 P: 34 MN: 214 QRS: -10 QRSD: 78 T: 34 QT: 394 QTc: 443 Interpretive Statements SINUS RHYTHM LEFTWARD AXIS QRS(T) CONTOUR ABNORMALITY CONSIDER ANTEROSEPTAL MYOCARDIAL DAMAGE POSSIBLY ABNORMAL ECG RI6.01 No previous ECG available for comparison
[2020-12-14 20:36] LABS: BASO % 1 % (0-3); EOS # 0.1 x10^3/uL (0.0-0.7); EOS % 2 % (0-3); HEMATOCRIT 36.6 % (36.0-47.0); HEMOGLOBIN 11.8 g/dL (12.0-15.5); LYMPH # 1.6 x10^3/uL (1.0-4.8); LYMPH % 37 % (24-48); MEAN CORPUSCULAR HEMOGLOBIN 25 pg (25-35); MEAN CORPUSCULAR HGB CONC 32 g/dL (31-37); MEAN CORPUSCULAR VOLUME 79 fL (79-100); MONO # 0.5 x10^3/uL (0.0-1.1); MONO % 12 % (0-9); NEUT # 2.2 x10^3/uL (1.8-7.7); NEUT % 50 % (31-73); PLATELET COUNT 201 x10^3/uL (140-400); RED BLOOD COUNT 4.66 x10^6/uL (3.50-5.40); RED CELL DISTRIBUTION WIDTH 14.9 % (11.5-14.5); WHITE BLOOD COUNT 4.4 x10^3/uL (4.0-11.0)
[2020-12-14 20:37] LABS: BILIRUBIN,URINE NEGATIVE (NEG); CLARITY,URINE CLEAR; COLOR,URINE YELLOW; NITRITE,URINE NEGATIVE (NEG); PH,URINE 6.5 (<5.0-8.0); PROTEIN,URINE NEGATIVE (NEG-TRACE); UROBILINOGEN,URINE 0.2 mg/dL (0.2 mg/dL)
[2020-12-14 20:45] LABS: BACTERIA,URINE FEW /HPF (0-FEW)
[2020-12-14 20:47] LABS: CALCIUM 8.9 mg/dL (8.5-10.1); CREATININE 1.1 mg/dL (0.6-1.0); GFR 58.9; POTASSIUM 3.8 mmol/L (3.5-5.1)
[2020-12-14 20:47] LABS: RBC,URINE 0 /HPF (0-2)
[2020-12-14 20:53] LABS: ALBUMIN 4.2 g/dL (3.4-5.0); ALBUMIN/GLOBULIN RATIO 1.3 (1.0-1.7); TOTAL BILIRUBIN 0.2 mg/dL (0.2-1.0); TOTAL PROTEIN 7.4 g/dL (6.4-8.2)
--- NOTE | 2020-12-14 21:14 | RAD ---
XR CHEST 1V INDICATION: chest pain / Spl. Instructions: / History: . COMPARISON STUDY: None. FINDINGS: Lungs: Low lung. No pulmonary mass or consolidation. The tracheobronchial tree and hilar structures a re normal. Pleura: No pleural effusion or pneumothorax. Heart and Mediastinum: Cardiomegaly. Tortuosity of the thoracic aorta. IMPRESSION: Low lung volume. No consolidation. Electronically signed by: Michael Wall MD (12/14/2020 9:11 PM) [facility]
[2020-12-14] MEDS ORDERED: FAMOTIDINE 20 MG/2 ML VIAL IVP ONE (21:15)
[2020-12-14] MEDS ORDERED: ASPIRIN 325 MG TABLET PO ONE (21:15)
[2020-12-14] MEDS ORDERED: NITROGLYCERIN SUBLINGUAL 0.4 MG BOTTLE OF 25. SL PRN (21:30)
--- NOTE | 2020-12-14 22:07 | PHYS DOC ---
Past Medical History Past Medical History: Anxiety, Arthritis, GERD, High Cholesterol, Hypertension Additional Past Medical Histor: pericarditis, NARROW ESOPHAGUS, heart murmur, NEUROPATHY, THYROID NODULES Past Surgical History: Cholecystectomy, Hysterectomy, Other Additional Past Surgical Histo: pericardial window shoulder sx 2 knee replacements,pericardial window, [place] Smoking Status: Never Smoker Alcohol Use: None Drug Use: None General Adult EDM: Chief Complaint: CHEST PAIN HPI: HPI: Patient is a 75 year old female who presents with for last 2 days she has had left arm pain that begins at the top of her shoulder and goes down into her fingers she states it is a tight or sharp shooting pain that is intermittent. She also has chest tightness. She has some shortness of breath especially when she is going up and down stairs. Patient denies dizziness, syncope, headache, nausea, vomiting, diarrhea, fever, cough, recent illness, focal weakness or new numbness or tingling. Patient has a history of hypertension, high cholesterol, GERD, hysterectomy, cholecystectomy, heart murmur, neuropathy, thyroid, anxiety, arthritis, pericarditis. Review of Systems: Review of Systems: Constitutional: Denies fever or chills. [] Eyes: Denies change in visual acuity. [] HENT: Denies nasal congestion or sore throat. [] Respiratory: Denies cough or +shortness of breath. [] Cardiovascular: + chest pain or denies edema. [] GI: Denies abdominal pain, nausea, vomiting, bloody stools or diarrhea. [] : Denies dysuria. [] Musculoskeletal: Denies back pain or joint pain. +Left arm pain [] Integument: Denies rash. [] Neurologic: Denies headache, focal weakness or sensory changes. [] Endocrine: Denies polyuria or polydipsia. [] Lymphatic: Denies swollen glands. [] Psychiatric: Denies depression or anxiety. [] Heart Score: C/O Chest Pain: Yes HEART Score for Chest Pain: HEART Score for Chest Pain Response (Comments) Value History Slighlty/Non-Suspicious 0 ECG Nonspecific Repolarizatio 1 Age > 65 2 Risk Factors 1 or 2 Risk Factors 1 Troponin < Normal Limit 0 Total 4 Risk Factors: Risk Factors: DM, Current or recent (<one month) smoker, HTN, HLP, family history of CAD, obesity. Risk Scores: Score 0 - 3: 2.5% MACE over next 6 weeks - Discharge Home Score 4 - 6: 20.3% MACE over next 6 weeks - Admit for Clinical Observation Score 7 - 10: 72.7% MACE over next 6 weeks - Early Invasive Strategies Current Medications: Current Medications Medications (Trade) Dose Ordered Sig/Richard Start Time Stop Time Status Last Admin Dose Admin Aspirin (Mateo Aspirin) 325 mg 1X ONCE 12/14/20 21:15 12/14/20 21:17 DC 12/14/20 21:53 325 MG Famotidine (Pepcid Vial) 20 mg 1X ONCE 12/14/20 21:15 12/14/20 21:17 DC 12/14/20 21:53 20 MG Nitroglycerin (Nitrostat) 0.4 mg PRN Q5MIN PRN 12/14/20 21:30 Allergies: Allergies: Allergies Coded Allergies Type Severity Reaction Last Updated Verified lisinopril Allergy Intermediate 07/16/20 Yes metoclopramide Allergy Intermediate 07/16/20 Yes hydrocodone Allergy Mild shakiness 07/16/20 Yes Physical Exam: PE: Constitutional: Well developed, well nourished, no acute distress, non-toxic appearance. [] HENT: Normocephalic, atraumatic, bilateral external ears normal, oropharynx moist, no oral exudates, nose normal. [] Eyes: PERRLA, EOMI, conjunctiva normal, no discharge. [] Neck: Normal range of motion, no tenderness, supple, no stridor. [] Cardiovascular:Heart rate regular rhythm, no murmur [] Lungs & Thorax: Bilateral breath sounds clear to auscultation [] Abdomen: Bowel sounds normal, soft, no tenderness, no masses, no pulsatile masses. [] Skin: Warm, dry, no erythema, no rash. [] Back: No tenderness, no CVA tenderness. [] Extremities: No tenderness, no cyanosis, no clubbing, ROM intact, no edema. [] Neurologic: Alert and oriented X 3, normal motor function, normal sensory function, no focal deficits noted. [] Psychologic: Affect normal, judgement normal, mood normal. Normal Physical Pain[] Current Patient Data: Labs: Laboratory Tests Test 12/14/20 20:25 12/14/20 20:27 Urine Collection Type Unknown Urine Color Yellow Urine Clarity Clear Urine pH 6.5 (<5.0-8.0) Urine Specific [place] 1.010 (1.000-1.030) Urine Protein Negative mg/dL (NEG-TRACE) Urine Glucose (UA) Negative mg/dL (NEG) Urine Ketones (Stick) Negative mg/dL (NEG) Urine Blood Negative (NEG) Urine Nitrite Negative (NEG) Urine Bilirubin Negative (NEG) Urine Urobilinogen Dipstick 0.2 mg/dL (0.2 mg/dL) Urine Leukocyte Esterase Trace (NEG) Urine RBC 0 /HPF (0-2) Urine WBC 1-4 /HPF (0-4) Urine Bacteria Few /HPF (0-FEW) Urine Mucus Slight /LPF White Blood Count 4.4 x10^3/uL (4.0-11.0) Red Blood Count 4.66 x10^6/uL (3.50-5.40) Hemoglobin 11.8 g/dL (12.0-15.5) L Hematocrit 36.6 % (36.0-47.0) Mean Corpuscular Volume 79 fL (79-100) Mean Corpuscular Hemoglobin 25 pg (25-35) Mean Corpuscular Hemoglobin Concent 32 g/dL (31-37) Red Cell Distribution Width 14.9 % (11.5-14.5) H Platelet Count 201 x10^3/uL (140-400) Neutrophils (%) (Auto) 50 % (31-73) Lymphocytes (%) (Auto) 37 % (24-48) Monocytes (%) (Auto) 12 % (0-9) H Eosinophils (%) (Auto) 2 % (0-3) Basophils (%) (Auto) 1 % (0-3) Neutrophils # (Auto) 2.2 x10^3/uL (1.8-7.7) Lymphocytes # (Auto) 1.6 x10^3/uL (1.0-4.8) Monocytes # (Auto) 0.5 x10^3/uL (0.0-1.1) Eosinophils # (Auto) 0.1 x10^3/uL (0.0-0.7) Basophils # (Auto) 0.0 x10^3/uL (0.0-0.2) Prothrombin Time 12.0 SEC (11.7-14.0) Prothrombin Time INR 0.9 (0.8-1.1) Sodium Level 142 mmol/L (136-145) Potassium Level 3.8 mmol/L (3.5-5.1) Chloride Level 106 mmol/L (98-107) Carbon Dioxide Level 27 mmol/L (21-32) Anion Gap 9 (6-14) Blood Urea Nitrogen 19 mg/dL (7-20) Creatinine 1.1 mg/dL (0.6-1.0) H Estimated GFR (Cockcroft-Gault) 58.9 BUN/Creatinine Ratio 17 (6-20) Glucose Level 98 mg/dL (70-99) Calcium Level 8.9 mg/dL (8.5-10.1) Total Bilirubin 0.2 mg/dL (0.2-1.0) Aspartate Amino Transferase (AST) 22 U/L (15-37) Alanine Aminotransferase (ALT) 26 U/L (14-59) Alkaline Phosphatase 91 U/L (46-116) Troponin I Quantitative < 0.017 ng/mL (0.000-0.055) DX-Bqz-G-Type Natriuretic Peptide 233 pg/mL (0-124) H Total Protein 7.4 g/dL (6.4-8.2) Albumin 4.2 g/dL (3.4-5.0) Albumin/Globulin Ratio 1.3 (1.0-1.7) Lipase 113 U/L (73-393) Laboratory Tests 12/14/20 20:27 Laboratory Tests 12/14/20 20:27 Vital Signs: Vital Signs Date Time Temp Pulse Resp B/P (MAP) Pulse Ox O2 Delivery O2 Flow Rate FiO2 12/14/20 20:12 98.4 77 18 171/86 (114) 98 Room Air 98.4 EKG: EK and read by Dr. Linder as sinus rhythm and no STEMI Radiology/Procedures: Radiology/Procedures: [] Impression: [facility] [address] [place] [address] IMAGING REPORT Signed PATIENT: MANJIT WALTERS EACCOUNT: [id number] : 1945 LOCATION: ER AGE: 75 SEX: F EXAM STATUS: PRE ER ORD. PHYSICIAN: EDNA STALEY APRN REASON: chest pain PROCEDURE: PORTABLE CHEST 1V XR CHEST 1V INDICATION: chest pain / Spl. Instructions: / History: . COMPARISON STUDY: None. FINDINGS: Lungs: Low lung. No pulmonary mass or consolidation. The tracheobronchial tree and hilar structures are normal. Pleura: No pleural effusion or pneumothorax. Heart and Mediastinum: Cardiomegaly. Tortuosity of the thoracic aorta. IMPRESSION: Low lung volume. No consolidation. Electronically signed by: Imtiaz Wall MD (12/14/2020 9:11 PM) [facility] DICTATED and SIGNED BY: IMTIAZ WALL MD DATE: 12/14/[id number] 0 Course & Med Decision Making: Course & Med Decision Making Pertinent Labs and Imaging studies reviewed. (See chart for details) see HPI. Alert and oriented x4. Ambulatory with a steady gait. She does have full range of motion of the left arm with a good radial pedal pulse. Cap refill less than 2 seconds. No extremity swelling. Lungs are clear to auscultation all lobes. Vital signs are within normal limits. She refused nitroglycerin. Did give her aspirin. Heart score is a 4. Pain is not reproducible with palpation or movement. Chest x-ray shows no acute findings. [] Dragon Disclaimer: Robb Disclaimer: This electronic medical record was generated, in whole or in part, using a voice recognition dictation system. Departure Departure Impression: Primary Impression: Chest pain Qualified Codes: R07.9 - Chest pain, unspecified Additional Impression: Left arm pain Disposition: ADMITTED INPATIENT Admitting Physician: Heron Claudio Condition: STABLE Referrals: SEEMA VEGA MD (PCP) EDNA STALEY APRN December 14, 2020 22:07
[2020-12-15] MEDS ORDERED: AMLO-186 PO (00:50)
[2020-12-15] MEDS ORDERED: VIT D PO (00:58)
[2020-12-15] MEDS ORDERED: ZINC50TA39 PO (00:59)
[2020-12-15] MEDS ORDERED: OMEP40CA45 PO (01:00)
[2020-12-15] MEDS ORDERED: FLAX10003 PO (01:02)
[2020-12-15 01:12] VITALS: BP 151/87
--- NOTE | 2020-12-15 02:54 | NUR ---
The patient, MANJIT WALTERS, 75 y/o, F admitted by RAMÓN BARBOUR MD, was given written information regarding hospital policies, unit procedures and contact persons. Valuables were checked and on inventory list.
[2020-12-15 04:10] VITALS: BP 111/63
[2020-12-15 07:00] VITALS: BP 107/77
[2020-12-15] MEDS ORDERED: ZINC SULFATE 220 MG CAPSULE. PO SCH ×2 (09:00→18:00)
[2020-12-15] MEDS ORDERED: SUCRALFATE 1 GM TABLET. PO PRN (09:00)
[2020-12-15] MEDS ORDERED: HEPARIN for SUB-Q USE 5,000 UNIT/ML VIAL. SQ SCH (09:00)
[2020-12-15] MEDS ORDERED: cloNIDine HCL 0.1 MG TABLET PO SCH (09:00)
[2020-12-15] MEDS ORDERED: GABAPENTIN 100 MG CAPSULE. PO SCH (09:00)
[2020-12-15] MEDS ORDERED: ALPRAZolam 1 MG TABLET PO PRN (09:00)
[2020-12-15] MEDS ORDERED: ASPIRIN ENTERIC COATED 81 MG TABLET.DR. PO SCH ×2 (09:00→21:00)
[2020-12-15] MEDS ORDERED: METOPROLOL SUCC 24HR ER 100 MG TAB.ER.24H. PO SCH ×2 (09:00→18:00)
[2020-12-15] MEDS ORDERED: amLODIPine BESYLATE 5 MG TABLET PO SCH (09:00)
[2020-12-15] MEDS ORDERED: FLAXSEED OIL 1200 MG PO SCH (09:00)
[2020-12-15] MEDS ORDERED: CHOLECALCIFEROL (VITAMIN D3) 1,000 UNIT TABLET PO SCH ×2 (09:15→18:00)
[2020-12-15] MEDS ORDERED: MULTIVITAMIN with MINERAL TABLET. PO SCH (09:15)
[2020-12-15] MEDS ORDERED: POTASSIUM CHLORIDE 10 MEQ TABLET.ER. PO SCH (09:15)
[2020-12-15] MEDS ORDERED: CETIRIZINE HCL 10 MG TABLET. PO PRN (09:15)
[2020-12-15] MEDS ORDERED: LOSARTAN POTASSIUM 50 MG TABLET. PO SCH ×2 (09:15→18:00)
[2020-12-15] MEDS ORDERED: FLUTICASONE 50MCG/NASAL SPRAY 16GM BOTTLE. NS SCH (09:30)
[2020-12-15] MEDS ORDERED: tiZANidine 4 MG TABLET. PO PRN (10:00)
--- NOTE | 2020-12-15 10:08 | PDOC ---
Provider Note Date of Service: DATE: 12/15/20 TIME: 10:08 Provider Note Combined history and physical and discharge summary dictated #[id number] Justifications for Admission Other Justification RAMÓN BARBOUR MD December 15, 2020 10:08
[2020-12-15] MEDS ORDERED: Diclofenac Sodium TP (10:11)
[2020-12-15] MEDS ORDERED: TIZA4TAB2 PO (10:11)
--- NOTE | 2020-12-15 10:14 | DISCH ---
DISCHARGE INSTRUCTIONS Condition on Discharge Condition on Discharge: Stable Activity After Discharge Activity Instructions for Disc: Activity as tolerated Exercise Instruction after Dis: Progress as tolerated Weight Bearing Status after Di: Full weight bearing, As tolerated Diet after Discharge Diet after Discharge: Cardiac Diet Texture: Regular Liquid Texture: Thin Liquid Swallowing Supervision: None needed Checks after Discharge Checks after discharge: Check blood press - daily Contacting the DRFaraz after DC Call your doctor for: Concerns you may have Follow-Up Follow up with: in 1 week. Treatment/Equipment after DC Adaptive Equipment Issued: None RAMÓN BARBOUR MD December 15, 2020 10:14
[2020-12-15] MEDS ORDERED: methylPREDNISolone ACETATE 40 MG/ML VIAL. IM ONE (10:15)
[2020-12-15] MEDS ORDERED: BUPIVACAINE MPF 0.25% 10 ML VIAL. IJ ONE (10:15)
[2020-12-15] MEDS ORDERED: diphenhydrAMINE HCL 25 MG CAPSULE PO PRN (10:30)
--- NOTE | 2020-12-15 10:51 | PDOC2 ---
CONSULT Date of Consult Date of Consult DATE: 12/15/20 TIME: 10:51 Reason for Consult Reason for Consult: Chest pain Referring Physician Referring Physician: Dr. Claudio Identification/Chief Complaint Chief Complaint Chest pain Source Source: Chart review, Patient History of Present Illness Reason for Visit: 75-year-old female presented with intermittent episodes of retrosternal chest pain that she described as pressure-like sensation, 6/10 in severity and not related to exertion. She has history of gastroesophageal reflux disease but stated that this feels different. She has history of chronic cervical radiculopathy but stated that ever since she mowed her lawn 3 days ago, she has been having increased pain starting in the neck and radiating to left shoulder and left upper extremity. She denied any orthopnea/PND, palpitations or syncope. Past Medical History Cardiovascular: HTN, Hyperlipidemia, Other Pulmonary: No pertinent hx GI: Other Heme/Onc: No pertinent hx Hepatobiliary: No pertinent hx Psych: No pertinent hx Musculoskeletal: Osteoarthritis Rheumatologic: No pertinent hx Infectious disease: No pertinent hx Renal/: No pertinent hx Endocrine: No pertinent hx Past Surgical History Past Surgical History: Cholecystectomy, Total knee replacement, Hysterectomy, Other Family History Family History: Family History Unknown Social History ALCOHOL: none Drugs: None Lives: with Family Current Problem List Problem List Problems Medical Problems: (1) Chest pain Status: Acute (2) Left arm pain Status: Acute Current Medications Current Medications Current Medications Aspirin (Mateo Aspirin) 325 mg 1X ONCE PO Last administered on 12/14/20at 21:53; Start 12/14/20 at 21:15; Stop 12/14/20 at 21:17; Status DC Famotidine (Pepcid Vial) 20 mg 1X ONCE IVP Last administered on 12/14/20at 21:53; Start 12/14/20 at 21:15; Stop 12/14/20 at 21:17; Status DC Nitroglycerin (Nitrostat) 0.4 mg PRN Q5MIN PRN SL CHEST PAIN; Start 12/14/20 at 21:30 Alprazolam (Xanax) 1 mg TID PRN PRN PO ANXIETY / AGITATION; Start 12/15/20 at 09:00 Amlodipine Besylate (Norvasc) 5 mg BID PO Last administered on 12/15/20at 09:56; Start 12/15/20 at 09:00 Aspirin (Ecotrin) 81 mg DAILY PO ; Start 12/15/20 at 09:00; Status Cancel Clonidine HCl (Catapres) 0.1 mg BID PO Last administered on 12/15/20at 09:57; Start 12/15/20 at 09:00 Gabapentin (Neurontin) 600 mg BID PO Last administered on 12/15/20at 09:57; Start 12/15/20 at 09:00 Metoprolol Succinate (Toprol Xl) 100 mg DAILY PO ; Start 12/15/20 at 09:00; Status Cancel Simvastatin (Zocor) 20 mg HS PO ; Start 12/15/20 at 21:00 Sucralfate (Carafate) 1 gm PRN BID PRN PO GERD; Start 12/15/20 at 09:00 Non-Formulary Medication (Flaxseed Oil (Flax Oil)) 1,200 mg DAILY PO ; Start 12/15/20 at 09:00; Status UNV Fluticasone Propionate (Flonase) 2 spray DAILY NS ; Start 12/15/20 at 09:30 Hydralazine HCl (Apresoline) 100 mg TID PO Last administered on 12/15/20at 09:56; Start 12/15/20 at 09:15 Cetirizine HCl (ZyrTEC) 10 mg PRN DAILY PRN PO aLLERGY SYMPTOMS; Start 12/15/20 at 09:15 Losartan Potassium (Cozaar) 100 mg DAILY PO ; Start 12/15/20 at 09:15; Status Cancel Multivitamins (Thera M Plus) 1 tab DAILY PO Last administered on 12/15/20at 09:55; Start 12/15/20 at 09:15 Pantoprazole Sodium (Protonix) 40 mg DAILYAC PO ; Start 12/15/20 at 11:30 Potassium Chloride (Klor-Con) 10 meq DAILYWBKFT PO Last administered on 12/15/20at 09:56; Start 12/15/20 at 09:15 Zinc Sulfate (Orazinc) 220 mg DAILY PO ; Start 12/15/20 at 09:00; Status Cancel Vitamin D (Vitamin D3) 2,000 unit DAILY PO ; Start 12/15/20 at 09:15; Status Cancel Heparin Sodium (Porcine) (Heparin Sodium) 5,000 unit Q12HR SQ ; Start 12/15/20 at 09:00; Stop 12/15/20 at 10:31; Status DC Tizanidine HCl (Zanaflex) 4 mg PRN QHS PRN PO MUSCLE SPASMS; Start 12/15/20 at 10:00 Diclofenac Sodium (Voltaren) 1 hailey BID TP ; Start 12/15/20 at 21:00 Methylprednisolone Acetate (DEPO-Medrol 40MG VIAL) 40 mg 1X ONCE IM ; Start 12/15/20 at 10:15; Stop 12/15/20 at 10:16; Status DC Bupivacaine HCl (Sensorcaine-Mpf 0.25%) 10 ml 1X ONCE IJ ; Start 12/15/20 at 10:15; Stop 12/15/20 at 10:16; Status DC Aspirin (Ecotrin) 81 mg QHS PO ; Start 12/15/20 at 21:00 Zinc Sulfate (Orazinc) 220 mg QEVNG PO ; Start 12/15/20 at 18:00 Vitamin D (Vitamin D3) 2,000 unit QEVNG PO ; Start 12/15/20 at 18:00 Losartan Potassium (Cozaar) 100 mg QEVNG PO ; Start 12/15/20 at 18:00 Metoprolol Succinate (Toprol Xl) 100 mg QEVNG PO ; Start 12/15/20 at 18:00 Diphenhydramine HCl (Benadryl) 25 mg PRN Q6HRS PRN PO ITCHING; Start 12/15/20 at 10:30 Active Scripts Active [Diclofenac Sodium] 100 GM Gel..gram. 1 Hailey TP BID 30 Days Tizanidine Hcl 4 Mg Tablet 4 Mg PO PRN QHS PRN 30 Days Reported Flax Oil (Flaxseed Oil) 1,000 Mg Capsule 1,200 Mg PO DAILY Omeprazole 40 Mg Capsule.dr 40 Mg PO DAILY Zinc 50 Mg Tablet 50 Mg PO DAILY [vit D3 2000 IU] 1 Tab PO DAILY Amlodipine Besylate 5 Mg Tablet 5 Mg PO BID Alprazolam 1 Mg Tablet 1 Mg PO TID PRN PRN Flonase Allergy Relief (Fluticasone Propionate) 9.9 Ml [place].susp 2 Sprays NS DAILY Loratadine 10 Mg Tablet 10 Mg PO DAILY PRN Gabapentin (Gabapentin) 100 Mg Capsule 600 Mg PO BID Carafate (Sucralfate) 1 Gm Tablet 1 Tab PO BID PRN Simvastatin 20 Mg Tablet 20 Mg PO HS Metoprolol Succinate ( Xl ) (Metoprolol Succinate) 100 Mg Tab.er.24h 100 Mg PO DAILY Potassium Chloride 10 Meq Tablet.er 10 Meq PO DAILY Clonidine Hcl 0.1 Mg Tablet 0.1 Mg PO BID Hydralazine Hcl 100 Mg Tablet 100 Mg PO TID Aspir 81 (Aspirin) 81 Mg Tablet.dr 81 Mg PO DAILY Losartan Potassium 100 Mg Tablet 100 Mg PO DAILY Daily Vitamin (Multivitamin) 1 Each Tablet 1 Each PO DAILY Allergies Allergies: Coded Allergies: lisinopril (Verified Allergy, Intermediate, 07/16/20) metoclopramide (Verified Allergy, Intermediate, 07/16/20) Pt states Reglan makes her "pass out" hydrocodone (Verified Allergy, Mild, shakiness, 07/16/20) ROS PSYCHOLOGICAL ROS: No: Hallucinations Eyes: No Loss of vision HEENT: No: Epistaxis Respiratory: No: Hemoptysis, Shortness of breath Cardiovascular: yes Chest Pain Gastrointestinal: No Vomiting, No Diarrhea Genitourinary: No Hematuria Neurological: No Seizures Skin: No Rash Physical Exam General: Alert, Oriented X3 HEENT: Atraumatic Lungs: Clear to auscultation Heart: Regular rate Abdomen: Soft Extremities: No edema Neuro: Normal speech Psych/Mental Status: Mood NL Vitals VITALS Vital Signs Date Time Temp Pulse Resp B/P (MAP) Pulse Ox O2 Delivery O2 Flow Rate FiO2 12/15/20 09:57 72 107/77 12/15/20 07:00 98.0 16 97 Room Air 98.0 Labs Labs Laboratory Tests Test 12/14/20 20:25 12/14/20 20:27 12/15/20 02:00 Urine Collection Type Unknown Urine Color Yellow Urine Clarity Clear Urine pH 6.5 (<5.0-8.0) Urine Specific Mobile 1.010 (1.000-1.030) Urine Protein Negative mg/dL (NEG-TRACE) Urine Glucose (UA) Negative mg/dL (NEG) Urine Ketones (Stick) Negative mg/dL (NEG) Urine Blood Negative (NEG) Urine Nitrite Negative (NEG) Urine Bilirubin Negative (NEG) Urine Urobilinogen Dipstick 0.2 mg/dL (0.2 mg/dL) Urine Leukocyte Esterase Trace (NEG) Urine RBC 0 /HPF (0-2) Urine WBC 1-4 /HPF (0-4) Urine Bacteria Few /HPF (0-FEW) Urine Mucus Slight /LPF White Blood Count 4.4 x10^3/uL (4.0-11.0) Red Blood Count 4.66 x10^6/uL (3.50-5.40) Hemoglobin 11.8 g/dL (12.0-15.5) Hematocrit 36.6 % (36.0-47.0) Mean Corpuscular Volume 79 fL (79-100) Mean Corpuscular Hemoglobin 25 pg (25-35) Mean Corpuscular Hemoglobin Concent 32 g/dL (31-37) Red Cell Distribution Width 14.9 % (11.5-14.5) Platelet Count 201 x10^3/uL (140-400) Neutrophils (%) (Auto) 50 % (31-73) Lymphocytes (%) (Auto) 37 % (24-48) Monocytes (%) (Auto) 12 % (0-9) Eosinophils (%) (Auto) 2 % (0-3) Basophils (%) (Auto) 1 % (0-3) Neutrophils # (Auto) 2.2 x10^3/uL (1.8-7.7) Lymphocytes # (Auto) 1.6 x10^3/uL (1.0-4.8) Monocytes # (Auto) 0.5 x10^3/uL (0.0-1.1) Eosinophils # (Auto) 0.1 x10^3/uL (0.0-0.7) Basophils # (Auto) 0.0 x10^3/uL (0.0-0.2) Prothrombin Time 12.0 SEC (11.7-14.0) Prothromb Time International Ratio 0.9 (0.8-1.1) Sodium Level 142 mmol/L (136-145) Potassium Level 3.8 mmol/L (3.5-5.1) Chloride Level 106 mmol/L (98-107) Carbon Dioxide Level 27 mmol/L (21-32) Anion Gap 9 (6-14) Blood Urea Nitrogen 19 mg/dL (7-20) Creatinine 1.1 mg/dL (0.6-1.0) Estimated GFR (Cockcroft-Gault) 58.9 BUN/Creatinine Ratio 17 (6-20) Glucose Level 98 mg/dL (70-99) Calcium Level 8.9 mg/dL (8.5-10.1) Total Bilirubin 0.2 mg/dL (0.2-1.0) Aspartate Amino Transf (AST/SGOT) 22 U/L (15-37) Alanine Aminotransferase (ALT/SGPT) 26 U/L (14-59) Alkaline Phosphatase 91 U/L (46-116) Troponin I Quantitative < 0.017 ng/mL (0.000-0.055) < 0.017 ng/mL (0.000-0.055) YB-Leo-H-Type Natriuretic Peptide 233 pg/mL (0-124) Total Protein 7.4 g/dL (6.4-8.2) Albumin 4.2 g/dL (3.4-5.0) Albumin/Globulin Ratio 1.3 (1.0-1.7) Lipase 113 U/L (73-393) Laboratory Tests Test 12/14/20 20:25 12/14/20 20:27 12/15/20 02:00 Urine Collection Type Unknown Urine Color Yellow Urine Clarity Clear Urine pH 6.5 (<5.0-8.0) Urine Specific Mobile 1.010 (1.000-1.030) Urine Protein Negative mg/dL (NEG-TRACE) Urine Glucose (UA) Negative mg/dL (NEG) Urine Ketones (Stick) Negative mg/dL (NEG) Urine Blood Negative (NEG) Urine Nitrite Negative (NEG) Urine Bilirubin Negative (NEG) Urine Urobilinogen Dipstick 0.2 mg/dL (0.2 mg/dL) Urine Leukocyte Esterase Trace (NEG) Urine RBC 0 /HPF (0-2) Urine WBC 1-4 /HPF (0-4) Urine Bacteria Few /HPF (0-FEW) Urine Mucus Slight /LPF White Blood Count 4.4 x10^3/uL (4.0-11.0) Red Blood Count 4.66 x10^6/uL (3.50-5.40) Hemoglobin 11.8 g/dL (12.0-15.5) Hematocrit 36.6 % (36.0-47.0) Mean Corpuscular Volume 79 fL (79-100) Mean Corpuscular Hemoglobin 25 pg (25-35) Mean Corpuscular Hemoglobin Concent 32 g/dL (31-37) Red Cell Distribution Width 14.9 % (11.5-14.5) Platelet Count 201 x10^3/uL (140-400) Neutrophils (%) (Auto) 50 % (31-73) Lymphocytes (%) (Auto) 37 % (24-48) Monocytes (%) (Auto) 12 % (0-9) Eosinophils (%) (Auto) 2 % (0-3) Basophils (%) (Auto) 1 % (0-3) Neutrophils # (Auto) 2.2 x10^3/uL (1.8-7.7) Lymphocytes # (Auto) 1.6 x10^3/uL (1.0-4.8) Monocytes # (Auto) 0.5 x10^3/uL (0.0-1.1) Eosinophils # (Auto) 0.1 x10^3/uL (0.0-0.7) Basophils # (Auto) 0.0 x10^3/uL (0.0-0.2) Prothrombin Time 12.0 SEC (11.7-14.0) Prothromb Time International Ratio 0.9 (0.8-1.1) Sodium Level 142 mmol/L (136-145) Potassium Level 3.8 mmol/L (3.5-5.1) Chloride Level 106 mmol/L (98-107) Carbon Dioxide Level 27 mmol/L (21-32) Anion Gap 9 (6-14) Blood Urea Nitrogen 19 mg/dL (7-20) Creatinine 1.1 mg/dL (0.6-1.0) Estimated GFR (Cockcroft-Gault) 58.9 BUN/Creatinine Ratio 17 (6-20) Glucose Level 98 mg/dL (70-99) Calcium Level 8.9 mg/dL (8.5-10.1) Total Bilirubin 0.2 mg/dL (0.2-1.0) Aspartate Amino Transf (AST/SGOT) 22 U/L (15-37) Alanine Aminotransferase (ALT/SGPT) 26 U/L (14-59) Alkaline Phosphatase 91 U/L (46-116) Troponin I Quantitative < 0.017 ng/mL (0.000-0.055) < 0.017 ng/mL (0.000-0.055) CV-Swy-R-Type Natriuretic Peptide 233 pg/mL (0-124) Total Protein 7.4 g/dL (6.4-8.2) Albumin 4.2 g/dL (3.4-5.0) Albumin/Globulin Ratio 1.3 (1.0-1.7) Lipase 113 U/L (73-393) Assessment/Plan Assessment/Plan 1. Chest pain with atypical features. Myocardial infarction has been ruled out. 2D echo in September 2019 showed normal LV systolic function and Lexiscan nuclear stress test at that time showed breast attenuation artifact with possibility of mild apical wall ischemia. We will repeat ischemic evaluation as an outpatient. Okay for discharge from cardiac standpoint 2. Hypertension: Controlled 3. Hyperlipidemia: Continue statin therapy 4. Gastroesophageal reflux disease: Continue proton pump inhibitors 5. Chronic left cervical radiculopathy: Treat per Dr. Maier Thank you for your consultation HARRIET DE LUNA MD December 15, 2020 10:51
[2020-12-15 11:16] VITALS: BP 126/68
[2020-12-15] MEDS ORDERED: PANTOPRAZOLE 40 MG TABLET.DR. PO SCH (11:30)
[2020-12-15] MEDS ORDERED: ACETAMINOPHEN 325 MG TABLET. PO PRN (14:30)
[2020-12-15 14:39] VITALS: BP 126/68
--- NOTE | 2020-12-15 15:22 | HP ---
ADMIT DATE: 12/14/2020 HISTORY OF PRESENT ILLNESS: This is a 75-year-old female who has a history of multiple medical problems including gastroesophageal reflux disease, osteoarthritis, chronic pain, chronic cervical radiculopathy. She worked in the yard 3 days ago and used a push lawnmower to cut her lawn in the front yard. She has been having more pain in the neck radiating to the left shoulder and the left upper extremity. She also has had some chest tightness and also reflux symptoms. The patient has a history of gastroesophageal reflux disease with esophageal stricture and had an EGD in August. She has not been taking Carafate. She continues to take omeprazole, but she still has symptoms. Because of the chest tightness and persistent neck pain and left shoulder pain and left upper extremity radiation, the patient came to the Emergency Room for further evaluation and management. Because of her multiple risk factors and chest pains, the patient was admitted for further evaluation and management. REVIEW OF SYSTEMS: The patient denies any cold, cough, congestion, palpitations, dizziness, diaphoresis. She has neck pain, neuropathy, arthritis pain and heartburn. She denies any nausea, vomiting, diarrhea or bleeding. She has pain in multiple joints. Other systems reviewed and are negative. PAST MEDICAL HISTORY: 1. The patient has a history of chronic cervical radiculopathy. She had [address] Higuera few years ago without much benefit. 2. She has chronic cervical radiculopathy. 3. Hypertension. 4. Gastroesophageal reflux disease with stricture. 5. Anxiety. 6. Heart murmur. 7. History of pericarditis. PAST SURGICAL HISTORY: Includes: 1. Cholecystectomy. 2. Bilateral knee replacement. 3. Hysterectomy. 4. Had a pericardial window. ALLERGIES: The patient is allergic to HYDROCODONE, LISINOPRIL, and REGLAN. MEDICATIONS: Reviewed and reconciled. The patient is currently not using Carafate. SOCIAL HISTORY: No history of smoking, alcoholism, or drug abuse. FAMILY HISTORY: Positive for hypertension and heart disease. PHYSICAL EXAMINATION: GENERAL: The patient is an elderly female who is alert and oriented x 3, and not in any acute distress. EYES: Pupils reacting to light. Conjunctivae are pink. Sclerae white. HENT: Unremarkable. NECK: Supple. JVP normal. No thyromegaly. Mild pain with range of motion of the neck and the left shoulder. SKIN: Warm and dry. There is no cyanosis. LUNGS: Decreased breath sounds at bases. CARDIOVASCULAR: S1, S2 regular. ABDOMEN: Soft, nontender. No guarding, no rigidity. Bowel sounds present. EXTREMITIES: No edema. CENTRAL NERVOUS SYSTEM: Alert and oriented. Moving extremities. Mild anxiety. LABORATORY FINDINGS: WBC count 4.4, hemoglobin 11.8. Sodium 142, potassium 3.8, BUN 19, creatinine 1.1, AST 22, ALT 26, albumin 4.2, lipase 113, glucose 98. BNP 233. Two troponin levels less than 0.017. Urinalysis: Trace leukocyte esterase, negative nitrite, negative rbc's, wbc's 1-4, few bacteria. INR 0.9. Chest x-ray showed cardiomegaly. Tortuosity of the thoracic aorta. EKG did not show any acute changes. IMPRESSION: 1. Chest pain, likely musculoskeletal as well as due to gastroesophageal reflux disease. 2. Chronic left cervical radiculopathy. 3. Left shoulder pain. 4. Gastroesophageal reflux disease with history of esophageal stricture. 5. Hypertension. 6. Anxiety. 7. Hyperlipidemia. PLAN: 1. Consult java web developer for cardiology evaluation and management. If cardiac workup is negative as it has been negative so far and if it is okay with the java web developer, okay to discharge the patient home later this afternoon. 2. Consult Dr. Maier for neck pain and left shoulder pain. I have advised the patient to apply Voltaren gel twice daily which she has not been using, but has at home. Start tizanidine 4 mg daily at bedtime as needed. Side effects were discussed with the patient extensively. 3. Follow up with Dr. Yan in 1 week. 4. For details regarding the discharge orders, please refer to the discharge papers. BETTY/KITTY/SOT DR: Kale TID: [id number] CC: SEEMA YAN MD
--- NOTE | 2020-12-15 16:27 | NUR ---
Discharge Note: MANJIT WALTERS Discharge instructions and discharge home medications reviewed with Patient and a copy given. All questions have been answered and understanding verbalized. Home medications reviewed with patient. Verbalized understanding. Pt given new script for tizanidine 4mg PO QD. Pt DC'd via wheelchair with spouse in stable condition.
[2020-12-15] MEDS ORDERED: SIMVASTATIN 20 MG TABLET PO SCH (21:00)
[2020-12-15] MEDS ORDERED: DICLOFENAC SODIUM 1% TOPICAL GEL 100GM TUBE. TP SCH (21:00)
--- NOTE | 2020-12-15 21:30 | CONS ---
DATE OF CONSULTATION: 12/15/2020 LOCATION: She is in room 260. ATTENDING PHYSICIAN: Heron Claudio MD The patient was seen at the request of Dr. Claudio for rehabilitation evaluation. HISTORY OF PRESENT ILLNESS: This is a 75-year-old right-handed female. The patient is known to me. She was admitted through the emergency room last evening with complaint of left upper extremity pain, began on top of her shoulder, goes down to her fingers and she admits is tight are sharp shooting pain that is intermittent with associated chest tightness with shortness of breath, especially when she is going up and down stairs. She denies any dizziness, syncope, headache, nausea, vomiting, diarrhea, fever, cough, recent illness or focal weakness or numbness or tingling sensation. The patient with known hypertension, hypercholesterolemia, gastroesophageal reflux disease, hysterectomy, cholecystectomy, heart murmur, neuropathy, hypothyroidism, anxiety, degenerative joint disease status post bilateral total knee arthroplasty, pericarditis. The patient apparently has this discomfort for about 2-3 days. She admits chronic neck pain going on for a while and looking at her MRI scan of her cervical vertebrae, she had multilevel degenerative disk disease and degenerative joint disease of cervical vertebrae with some degree of central spinal stenosis, mainly at C2-C3 and also neural foraminal compromise. She also had degenerative disk disease of lumbar vertebrae. She had been [facility] and Dr. Higuera injected her lower back, which helped to ease the pain first time, but did not help with the second and third injection, so she did not go to that again. The patient usually takes Tylenol for pain. She denies any trouble with her bowel or bladder control. ALLERGIES: THE PATIENT IS KNOWN ALLERGIC TO HYDROCODONE, LISINOPRIL, AND METOCLOPRAMIDE. PHYSICAL EXAMINATION: GENERAL: Today revealed a middle-aged female. She is alert, oriented to time, place, person and circumstance, follows commands appropriately. NEUROLOGIC: Moves all 4 extremities voluntarily where she had 4+/5 grade muscle strength with relatively increased weakness in left shoulder external rotators. She had painful limited movements of her cervical and lumbar spine and also left shoulder joint to some extent. Tenderness to palpation over cervical paraspinal muscles extending over to posterior shoulder girdle muscle, anterior aspect of left shoulder over sacroiliac joint area and bilateral trochanteric bursa. Straight leg raising test is negative bilaterally. She had equal perception of touch and pinprick sensation bilaterally. Deep tendon reflexes are decreased overall. She had a slight degree of soft tissue swelling over left tendo Achilles and also tenderness to palpation over anterolateral aspect of both ankles with mild crepitus on range of motion of her shoulders and ankles. She had pain free range of motion of both hip joints. She is independent with bed mobility and transfers and up walking without any assistive devices. The patient at home lives with her and she had stairs to manage. She had a cane and walker, but does not use them most of the time. Her skin is intact at this time. She had well-healed bilateral total knee arthroplasty scars. ASSESSMENT: Chronic neck and lower back pain from degenerative disk disease and degenerative joint disease of cervical and lumbar vertebrae with left cervical radiculitis and degenerative joint disease of both shoulders with tendinitis, left shoulder and bilateral trochanteric bursitis, degenerative joint disease of both ankles, clinical evidence of peripheral neuropathy. RECOMMENDATION: At her request, I have injected painful trigger points over left cervical paraspinal muscles under aseptic skin technique after skin preparation using alcohol prep, using 2 mL of 0.25% Marcaine solution mixed with 1 mL of Depo-Medrol 40 mg per 1 mL solution and she tolerated the procedure satisfactorily without any side effects. I have instructed her in a home program of physical modalities, trigger point massage and relax stretching exercise to her cervical paraspinal and posterior shoulder girdle muscles and proper body mechanics to her lower back and stretching exercises to her lower back and Codman's exercises to her left shoulder. She was advised to use a roller walker while up walking to help with her back and hip area discomfort and also foot discomfort. Dr. Claudio appreciate asking me to participate in the care of this interesting patient. I will be glad to see her for followup with you on an as needed basis. CHARLES/BHAVESH/JIAN RICHMOND: Martha TID: [id number]
== END 2020-12-15 15:30 | disposition home or self-care (01) ==
LOC: ER 19:52 → 2 SOUTH 22:58
PROVIDERS: ADMIT Internal Medicine; ATTEND Internal Medicine
DX: R07.89 Other chest pain (principal); M54.12 Radiculopathy, cervical region; M25.512 Pain in left shoulder; K21.9 Gastro-esophageal reflux disease without esophagitis; I10 Essential (primary) hypertension; M19.90 Unspecified osteoarthritis, unspecified site; F41.9 Anxiety disorder, unspecified; E78.5 Hyperlipidemia, unspecified; R01.1 Cardiac murmur, unspecified; Z90.49 Acquired absence of other specified parts of digestive tract; Z96.653 Presence of artificial knee joint, bilateral; Z90.710 Acquired absence of both cervix and uterus; Z79.82 Long term (current) use of aspirin; Z79.899 Other long term (current) drug therapy; Z98.890 Other specified postprocedural states
CPT/HCPCS: 36415; 71045; 80053; 81001; 83690; 83880; 84484; 85025; 85610; 87086; 93005; 96372; 96374; 99285; G0378; J1030; J3490; G0379

== ENCOUNTER → 2021-01-21 | Outpatient (CLI) | payer MEDICARE ==
[~2021-01-21] MED LIST changes: +AMLO-186 PO; +Diclofenac Sodium TP; +FLAX10003 PO; +OMEP40CA7 PO; +TIZA4TAB2 PO; +VIT D PO; +ZINC50TA39 PO
--- NOTE | 2021-01-21 10:21 | CARD ---
MR#: [id number] Date of Study: 01/21/2021 Ordering Physician: CALLIE BOWLES, Referring Physician: CALLIE BOWLES, Tech: Khanh Barajas [facility] APPROVED REPORT EXAM: Two-dimensional and M-mode echocardiogram with Doppler and color Doppler. Other Information Quality : AverageHR: 66bpm Rhythm : NSR INDICATION Chest Pain 2D DIMENSIONS Left Atrium(2D)4.1 (1.6-4.0cm)IVSd1.2 (0.7-1.1cm) Aortic Root(2D)3.2 (2.0-3.7cm)LVDd3.8 (3.9-5.9cm) LVOT Diameter1.9 (1.8-2.4cm)PWd1.2 (0.7-1.1cm) LVDs2.5 (2.5-4.0cm)FS (%) 35.0 % SV40.7 mlLVEF(%)65.1 (>50%) Aortic Valve AoV Peak Fitz.121.5cm/sAoV VTI29.5cm AO Peak GR.5.9mmHgLVOT Peak Fitz.112.1cm/s AO Mean GR.4mmHgAVA (VMAX)2.61cm2 AI P 1/2 [id number] Mitral Valve MV E Rbkjmpdr20.1cm/sMV E Peak Gr.3mmHg MV DECEL [id number] A Jfqnvyru46.7cm/s MV E Mean Gr.1mmHgE/A Ratio1.5 Pulmonary Valve PV Peak Eerlpjne09.0cm/s Tricuspid Valve TR P. [id number]/sTR Peak Gr.24mmHg Pulmonary Vein S1 Iusfunkb65.4cm/sD2 Pkhjiyuc78.1cm/s LEFT VENTRICLE The left ventricle is normal size. There is borderline to mild concentric left ventricular hypertroph y. The left ventricular systolic function is normal and the ejection fraction is within normal range. EF 55% There is normal LV segmental wall motion. Tissue Doppler imaging reveals mild left ventricula r diastolic dysfunction. No left ventricle thrombus noted on this study. RIGHT VENTRICLE The right ventricle is normal size. There is normal right ventricular wall thickness. The right ventr icular systolic function is normal. ATRIA The left atrium is moderately dilated. The right atrium size is normal. The interatrial septum is int act with no evidence for an atrial septal defect or patent foramen ovale as noted on 2-D or Doppler i maging. AORTIC VALVE The aortic valve is thickened but opens well. Doppler and Color Flow revealed trace to mild aortic re gurgitation. There is no significant aortic valvular stenosis. There is no aortic valvular vegetation . MITRAL VALVE The mitral valve is normal in structure and function. There is no evidence of mitral valve prolapse. There is no mitral valve stenosis. Doppler and Color-flow revealed trace to mild mitral regurgitation . TRICUSPID VALVE The tricuspid valve is normal in structure and function. Doppler and Color Flow revealed trace to mil d tricuspid regurgitation. There is no tricuspid valve prolapse or vegetation. There is no tricuspid valve stenosis. PULMONIC VALVE Doppler and Color Flow revealed no pulmonic valvular regurgitation. There is no pulmonic valvular brad nosis. GREAT VESSELS The aortic root is normal in size. The ascending aorta is normal in size. The IVC is normal in size a nd collapses >50% with inspiration. PERICARDIAL EFFUSION There is no pleural effusion. There is no evidence of significant pericardial effusion. Critical Notification Critical Value: No <Conclusion> The left ventricular systolic function is normal and the ejection fraction is within normal range. EF 55% There is normal LV segmental wall motion. Doppler and Color Flow revealed trace to mild aortic regurgitation. Signed by : Jayden Cruz, Electronically Approved : 01/21/2021 10:21:04
== END ==
LOC: NM 08:39
PROVIDERS: ATTEND Internal Medicine Cardiovascular Disease
DX: I08.3 Combined rheumatic disorders of mitral, aortic and tricuspid valves (principal); R07.9 Chest pain, unspecified
CPT/HCPCS: 93306

== ENCOUNTER 2021-03-04 13:27 | Day surgery (SDC) | payer MEDICARE ==
[~2021-03-04] VITALS: Ht 166.4 cm; Wt 80.9 kg
[2021-03-04 11:19] VITALS: BP 156/84
[2021-03-04 11:27] LABS: BASO % 1 % (0-3); EOS % 1 % (0-3); HEMATOCRIT 37.3 % (36.0-47.0); HEMOGLOBIN 12.3 g/dL (12.0-15.5); LYMPH # 1.5 x10^3/uL (1.0-4.8); LYMPH % 33 % (24-48); MEAN CORPUSCULAR HEMOGLOBIN 26 pg (25-35); MEAN CORPUSCULAR HGB CONC 33 g/dL (31-37); MEAN CORPUSCULAR VOLUME 80 fL (79-100); MONO # 0.5 x10^3/uL (0.0-1.1); MONO % 10 % (0-9); NEUT # 2.6 x10^3/uL (1.8-7.7); NEUT % 55 % (31-73); PLATELET COUNT 190 x10^3/uL (140-400); RED BLOOD COUNT 4.68 x10^6/uL (3.50-5.40); WHITE BLOOD COUNT 4.6 x10^3/uL (4.0-11.0)
--- NOTE | 2021-03-04 12:54 | PDOC ---
GENERAL General: Right Side Bartholin Cyst. VITAL SIGNS Vital Signs/I&O: Vital Signs Date Time Temp Pulse Resp B/P (MAP) Pulse Ox O2 Delivery O2 Flow Rate FiO2 03/04/21 11:32 97.0 69 18 156/84 98 Room Air 97.0 ALLERGIES Allergies: Allergies Coded Allergies Type Severity Reaction Last Updated Verified lisinopril Allergy Intermediate 07/16/20 Yes metoclopramide Allergy Intermediate 07/16/20 Yes hydrocodone Allergy Mild shakiness 07/16/20 Yes tramadol Adverse Reaction Intermediate 03/01/21 Yes MEDS Medications: Current Medications Medications (Trade) Dose Ordered Sig/Richard Route PRN Reason Start Time Stop Time Status Last Admin Dose Admin Ringer's Solution 1,000 ml @ 30 mls/hr Q24H IV 03/04/21 06:00 03/04/21 17:59 03/04/21 11:35 LAB Lab: Laboratory Tests Test 03/04/21 11:15 White Blood Count 4.6 x10^3/uL (4.0-11.0) Red Blood Count 4.68 x10^6/uL (3.50-5.40) Hemoglobin 12.3 g/dL (12.0-15.5) Hematocrit 37.3 % (36.0-47.0) Mean Corpuscular Volume 80 fL (79-100) Mean Corpuscular Hemoglobin 26 pg (25-35) Mean Corpuscular Hemoglobin Concent 33 g/dL (31-37) Red Cell Distribution Width 15.0 % (11.5-14.5) H Platelet Count 190 x10^3/uL (140-400) Neutrophils (%) (Auto) 55 % (31-73) Lymphocytes (%) (Auto) 33 % (24-48) Monocytes (%) (Auto) 10 % (0-9) H Eosinophils (%) (Auto) 1 % (0-3) Basophils (%) (Auto) 1 % (0-3) Neutrophils # (Auto) 2.6 x10^3/uL (1.8-7.7) Lymphocytes # (Auto) 1.5 x10^3/uL (1.0-4.8) Monocytes # (Auto) 0.5 x10^3/uL (0.0-1.1) Eosinophils # (Auto) 0.0 x10^3/uL (0.0-0.7) Basophils # (Auto) 0.0 x10^3/uL (0.0-0.2) Laboratory Tests 03/04/21 11:15 ASSESSMENT & PLAN A&P Under GA Right side Marsupalization of Bartholin Cyst done. EBL 10cc. Justifications for Admission Other Justification BG AGGARWAL MD Mar 04, 2021 12:54
--- NOTE | 2021-03-04 13:15 | OP ---
DATE OF SURGERY: 03/04/2021 PREOPERATIVE DIAGNOSIS: Right-sided Bartholin cyst. POSTOPERATIVE DIAGNOSIS: Right-sided Bartholin cyst. OPERATION PERFORMED: Marsupialization of right-sided Bartholin cyst. OPERATIVE PROCEDURE: The patient was taken to the operating room. Under general anesthesia, she was placed in the dorsal lithotomy position. Perineum was prepped and draped in the usual manner. A straight catheter was done to empty the bladder. After this, an elliptical incision is made over the area of the cyst on the right side vulvar area. Incision was extended deeper and a small piece of the gland with the fatty tissue is removed and after this, 2-0 chromic catgut sutures were used to close the cystic area all around with continuous 2-0 chromic catgut sutures and central portion was left open for drainage of Bartholin cyst and there was no active bleeding at the end of suturing. The patient was sent to the recovery room in good condition. No complications encountered at time of the procedure. Estimated blood loss about 10 mL POSTOPERATIVE CONDITION: Stable. She will be followed in the office in 2 weeks for postoperative care and treatment. AVRIL DR: Lucas TID: [id number]
[~2021-03-04 13:27] MED LIST changes: +BUPIVACAINE-EPI 0.25%-1:200000 MPF 30 ML VIAL. ONE; +DEXAMETHASONE SOD PHOS 4 MG/ML VIAL ONE; +HYDROmorphone 2 MG/ML VIAL IVP PRN; +IV RINGERS,LACTATED 1000ML 1,000 ML IV SCH; +LIDOCAINE 2% PF 5 ML VIAL. ONE; +MORPHINE SULFATE 2 MG/ML INJ. IVP PRN; +ONDANSETRON PF 4 MG/2 ML VIAL. ONE; +PROCHLORPERAZINE 10 MG/2 ML VIAL. IVP PRN; +PROPOFOL 10 MG/ML (20ML) VIAL. IV ONE; +SEVOFLURANE 31 TO 60 MINUTES. IH ONE; +TRIA15CR2 TP; +TROL35.4 TP; +[UNRECOGNIZED DRUG - CODE] PO; +ceFAZolin SODIUM IV Push 1 GM VIAL. IVP PRN; +fentaNYL PF VIAL 100 MCG/2 ML VIAL IVP PRN; +fentaNYL PF VIAL 100 MCG/2 ML VIAL ONE
[2021-03-04] MEDS ORDERED: ACETAMINOPHEN 500 MG TABLET PO ONE (13:30)
[2021-03-04] MEDS ORDERED: ACETAMINOPHEN 325 MG TABLET. PO ONE (13:32)
[2021-03-04 13:38] VITALS: BP 97/70
[2021-03-04] MEDS ORDERED: ACETAMINOPHEN 325 MG TABLET. PO PRN (13:45)
--- NOTE | 2021-03-05 18:07 | PATHOLOGY ---
[facility] Accession Number: [id number] . 01 Material submitted: . vagina - BARTHOLIN CYST. Modifiers: right, SIDE . 01 Clinical history: . BARTHOLIN CYST MARSUPIALIZATION OF CYST RIGHT SIDE BARTHOLIN CYST . 02 Diagnosis: Bartholin's cyst marsupialization: - Segments of benign fibroadipose tissue. (JPM:dorcas; 03/05/2021) MBR 03/05/2021 1540 Local . 02 Comment: No cyst is identified. (STEVIE:dorcas; 03/05/2021) . 02 Electronically signed: . Tyrone Wisdom MD, Pathologist NPI- [id number] . 01 Gross description: . The specimen is received in formalin, labeled "Deluca, Wandy E and Bartholin cyst". It consists of 2 dunbar-yellow, irregular fatty soft tissue segments measuring 1.4 and 2.0 cm. The specimen is entirely submitted in A1. (MRF; 03/04/2021) MFE/MFE 03/04/2021 2125 Local . 02 Pathologist provided ICD-10: N75.0 . 02 CPT . 703346 Specimen Comment: A courtesy copy of this report has been sent to [phone], [phone] Specimen Comment: [id number] Specimen Comment: Report sent to / DR VEGA Performed at: 01 [facility] [address], [place] [id number] MD Manohar Estrada MD Phone: [phone] Performed at: 02 [facility] [address] [place], [place] [id number] MD Tyrone Wisdom MD Phone: [phone]
== END 2021-03-04 14:03 | disposition home or self-care (01) ==
LOC: SURG 13:27
PROVIDERS: ATTEND Obstetrics & Gynecology
DX: N75.0 Cyst of Bartholin's gland (principal); I10 Essential (primary) hypertension; E78.00 Pure hypercholesterolemia, unspecified; K21.9 Gastro-esophageal reflux disease without esophagitis; M19.90 Unspecified osteoarthritis, unspecified site; F41.9 Anxiety disorder, unspecified; F32.9 Major depressive disorder, single episode, unspecified; Z90.710 Acquired absence of both cervix and uterus; Z98.890 Other specified postprocedural states; Z79.899 Other long term (current) drug therapy; Z79.82 Long term (current) use of aspirin; Z88.8 Allergy status to other drugs, medicaments and biological substances
CPT/HCPCS: 36415; 56440; 85025; A4930; J0690; J1100; J2405; J2704; J3010; J3490

== ENCOUNTER → 2021-05-28 | Outpatient (CLI) | payer MEDICARE ==
[~2021-05-28] MED LIST changes: -BUPIVACAINE-EPI 0.25%-1:200000 MPF 30 ML VIAL. ONE; +CYCL10TA19 PO; -CYCL10TA2 PO; -DEXAMETHASONE SOD PHOS 4 MG/ML VIAL ONE; -HYDROmorphone 2 MG/ML VIAL IVP PRN; -IV RINGERS,LACTATED 1000ML 1,000 ML IV SCH; -LIDOCAINE 2% PF 5 ML VIAL. ONE; -MORPHINE SULFATE 2 MG/ML INJ. IVP PRN; -ONDANSETRON PF 4 MG/2 ML VIAL. ONE; -PROCHLORPERAZINE 10 MG/2 ML VIAL. IVP PRN; -PROPOFOL 10 MG/ML (20ML) VIAL. IV ONE; -SEVOFLURANE 31 TO 60 MINUTES. IH ONE; +TIZA-75 PO; -TIZA4TAB2 PO; -ceFAZolin SODIUM IV Push 1 GM VIAL. IVP PRN; -fentaNYL PF VIAL 100 MCG/2 ML VIAL IVP PRN; -fentaNYL PF VIAL 100 MCG/2 ML VIAL ONE
--- NOTE | 2021-05-28 10:49 | RAD ---
MR#: [id number] Date of Study: 05/28/2021 Ordering Physician: CALLIE BOWLES, Referring Physician: CALLIE BOWLES, Tech: Bob Millan MBA, RDMS, RVT, RDCS, RTR APPROVED REPORT Bilateral Lower Extremity Venous Study for DVT Patient Location: OUT-PATIENT Indications Lower Extremity Edema: Bilateral Vein Imaging (Right) CFV (R): Compressible SFJ (R): Compressible FEM (R): Compressible POP (R): Compressible DFV (R): Compressible PTV (R): Spontaneous GSV (R): Spontaneous Peroneals (R): Spontaneous Vein Imaging (Left) CFV (L): Compressible SFJ (L): Compressible FEM (L): Compressible POP (L): Compressible DFV (L): Compressible PTV (L): Spontaneous GSV (L): Spontaneous Peroneals (L): Spontaneous Doppler Evaluation (Right) CFV (R): Spontaneous POP (R):Spontaneous Doppler Evaluation (Left) CFV (L):Spontaneous POP (L):Spontaneous Findings The bilateral lower extremity deep veins were evaluated for thrombus with color Doppler, spectral and grayscale images. On the right the grayscale images of the common femoral, superficial femoral and popliteal veins do n ot demonstrate any evidence of thrombus and these veins appear to be compressible. The below-knee vei ns were not well visualized but grossly appear to be compressible. Spectral imaging and color Doppler do not reveal any evidence of obstruction to flow with normal respirophasic variation above the knee . Below the knee there is spontaneous flow noted. On the left, the grayscale images of the common femoral, superficial femoral and popliteal veins do n ot demonstrate any evidence of thrombus and these veins appear to be compressible. The below-knee vei ns again were not well visualized but grossly appear to be compressible. Spectral imaging and color D oppler do not reveal any evidence of obstruction to flow with normal respirophasic variation above th e knee. The below-knee veins demonstrate spontaneous flow. Critical Notification Critical Value: No <Conclusion> 1. Negative for DVT in the bilateral lower extremities 2. Technically difficult study Signed by : Jayden Cruz, Electronically Approved : 05/28/2021 10:49:27
--- NOTE | 2021-05-28 10:57 | RAD ---
MR#: [id number] Date of Study: 05/28/2021 Ordering Physician: CALLIE BOWLES, Referring Physician: CALLIE BOWLES, Tech: Bob Millan MBA, RDMS, RVT, RDCS, RTR APPROVED REPORT Patient Location : OUT-PATIENT Indications Lower Extremity Edema : Bilateral Findings Limited grayscale images of the bilateral saphenofemoral junctions are grossly unremarkable. The sadie ateral greater saphenous veins measure approximately 6.5 mm. The bilateral greater and lesser saphenous veins do not show any evidence of reflux Critical Notification Critical Value: No <Conclusion> 1. No significant reflux in the bilateral greater and lesser saphenous veins Signed by : Jayden Cruz, Electronically Approved : 05/28/2021 10:57:00
== END ==
LOC: US 08:26
PROVIDERS: ATTEND Internal Medicine Cardiovascular Disease
DX: I82.493 Acute embolism and thrombosis of other specified deep vein of lower extremity, bilateral (principal); R60.0 Localized edema
CPT/HCPCS: 93970

== ENCOUNTER → 2021-07-08 | Outpatient (CLI) | payer MEDICARE ==
--- NOTE | 2021-07-08 17:48 | KCIC ---
Bone Densitometry History: Postmenopausal Findings: Bone Densitometry was performed with dual photon absorption of the lumbar spine and proximal femurs. Lumbar Spine: The average total bone mineral density is 1.414 g/cm2 for L1-L4. T-score is 3.3. Z-score is 4.9. Left femoral neck: The average total bone mineral density is 1.069 g/cm2. T-score is 1.0. Z-score is 1.5. IMPRESSION: Normal bone mineral density.. World Health Organization definition of osteoporosis and osteopenia for women: normal equal s T score at or above -1.0 standard deviations; osteopenia equals T score between -1.0 and -2.5 stand all deviations; osteoporosis equals T score at or below -2.5 standard deviations. Electronically signed by: Celine Lynn MD (07/08/2021 5:45 PM) [id number]
== END ==
LOC: KCIC DEXA 08:55
PROVIDERS: ATTEND Internal Medicine
DX: N95.1 Menopausal and female climacteric states (principal)
CPT/HCPCS: 77080

== ENCOUNTER → 2021-07-15 | Outpatient (CLI) | payer MEDICARE ==
--- NOTE | 2021-07-15 17:27 | RAD ---
Bilateral digital screening 2-D and 3-D (digital breast tomosynthesis) mammogram: Reason for examination: Routine screening. Comparison: Mammograms from 07/10/2020 and 07/28/2019. Interpretation was made with the benefit of CAD. FINDINGS: Breast density: Category B. There are scattered areas of fibroglandular density. No suspicious breast mass, malignant appearing calcifications, or architectural distortion is seen. IMPRESSION: No evidence of malignancy. Assessment: BI-RADS 1. Negative. Recommendation: Routine screening mammograms. The patient will receive a letter with the results in the mail. Patient information will be entered i nto the mammography reminder system with a target recall date for the next mammogram. A reminder shraddha er will be generated. Electronically signed by: Melony Weinberg MD (07/15/2021 5:25 PM) [id number]
== END ==
LOC: MAMMO 09:07
PROVIDERS: ATTEND Internal Medicine
DX: Z12.31 Encounter for screening mammogram for malignant neoplasm of breast (principal)
CPT/HCPCS: 77063; 77067

== ENCOUNTER → 2021-12-18 | Outpatient (CLI) | payer MEDICARE ==
[~2021-12-18] MED LIST changes: -ACET1TAB33 PO; +ACET1TAB56 PO
--- NOTE | 2021-12-18 16:39 | RAD ---
US THYROID History: Follow-up goiter Comparison: Thyroid ultrasound 08/31/2020, 04/28/2019 Technique: Multiple grayscale and color Doppler images of the thyroid gland were obtained. Findings: Right thyroid lobe: 4.3 x 1.8 x 1.6 cm. Left thyroid lobe: 4.4 x 1.7 x 2.0 cm. Isthmus: 0.3 cm. Redemonstrated heterogeneous multinodular thyroid. No hyperemia. Largest nodules as follows: Nodule #1. Size: 1.6 x 1.1 x 1.1 cm Location: Right upper. Characteristics: Isoechoic, solid, circumscribed, wider than tall, no echogenic foci ACR TI-RADS risk category: TR3 (3 points): FNA if 2.5 cm, follow-up if 1.5-2.4 cm in 1, 3, and 5 year s. Nodule #2. Size: 2.0 x 1.3 x 1.1 cm Location: Left mid. Characteristics: Solid, heterogeneous isoechoic, circumscribed, wider than tall, no echogenic foci ACR TI-RADS risk category: TR3 (3 points): FNA if 2.5 cm, follow-up if 1.5-2.4 cm in 1, 3, and 5 year s. IMPRESSION: 1. Redemonstrated multinodular thyroid goiter with mildly suspicious 1.6 cm right thyroid and 2.0 cm left thyroid nodules. Recommend continued follow-up with thyroid ultrasound in 2 years to establish five-year stability. ACR Thyroid Imaging, Reporting And Data System (TI-RADS): White Paper Of The ACR TI-RADS Committee. J ournal of the [employer] [employer], volume 14, issue 5, pages 587-595 (December 2016). Electronically signed by: Ramon Dallas MD (12/18/2021 4:36 PM) [id number]
== END ==
LOC: US 09:48
PROVIDERS: ATTEND Internal Medicine
DX: E04.2 Nontoxic multinodular goiter (principal)
CPT/HCPCS: 76536

== ENCOUNTER → 2021-12-18 | Outpatient (CLI) | payer MEDICARE ==
[2021-12-20 14:30] LABS: ALBUM 3.6 g/dL (2.9-4.4); ALPHA 1 0.3 g/dL (0.0-0.4); ALPHA 2 0.6 g/dL (0.4-1.0); GAMMA 1.4 g/dL (0.4-1.8); PROTEIN TOTAL 6.8 g/dL (6.0-8.5); SPEP AG RATIO 1.1 (0.7-1.7)
[2021-12-20 21:12] LABS: ANA INTERP Negative (.)
== END ==
LOC: LAB 09:54
PROVIDERS: ATTEND Nurse Practitioner Family
DX: G62.89 Other specified polyneuropathies (principal); M79.7 Fibromyalgia; L30.9 Dermatitis, unspecified; R53.1 Weakness
CPT/HCPCS: 36415; 82607; 82746; 84165; 84443; 85651; 86038; 86141